=== PATIENT | male | born 1960 | race African-American/Black ===

== ENCOUNTER 2016-11-16 20:03 | Inpatient (IN) | payer OTHER ==
[2016-11-16 20:33] VITALS: BMI 22.1
--- NOTE | 2016-11-16 21:49 | HP ---
COWS - Scale Resting Pulse: 1= [place] 81-100 Sweatin= Chills/Flushing Restless Observation: 5= Unable to Sit Still Pupil Size: 0= Normal to Room Light Bone or Joint Aches: 4=Acute Joint/Muscle Pain Runny Nose/ Eye Tearin= None GI Upset > 30mins: 2= Nausea/Diarrhea Tremor Observation: 4= Gross Tremor/Twitching Yawning Observation: 0= None Anxiety or Irritability: 4=Extreme Anxiety Goose Flesh Skin: 0=Smooth Skin COWS Score: 21 CIWA Score - CIWA Score Nausea/Vomitin Muscle Tremors: 4-Moderate,w/Arms Extend Anxiety: 4-Mod. Anxious/Guarded Agitation: 4-Moderately Restless Paroxysmal Sweats: No Perspiration Orientation: 0-Oriented Tacttile Disturbances: 3-Moderate Itch/Numb/Burn Auditory Disturbances: 2-Mild Harshness/Frighten Visual Disturbances: 0-None Headache: 3-Moderate CIWA-Ar Total Score: 23 Admission ROS BHS - HPI Chief Complaint: WITHDRAWAL SX'S. SEKING DETOX TXMENT Allergies/Adverse Reactions: Allergies Allergy/AdvReac Type Severity Reaction Status Date / Time Fish Containing Products Allergy Severe Nausea Verified 11/16/16 20:34 haloperidol [From Haldol] Allergy Severe Hives Verified 11/16/16 20:34 haloperidol lactate Allergy Severe Hives Verified 11/16/16 20:34 [From Haldol] History of Present Illness: 55 Y.O MALE WITH ETOH, COCAINE DEPENDENCE WITH RECENT USE OF HEROIN ( THIS WEEK) . ADMITTED FOR DETOX TXMENT. DOES NOT WANT TO BE DETOX WITH METHADONE. CLIENT IS KNOW TO [facility]. REPORTS LONGEST CLEAN TIME WAS 3 YEARS. D/W CLIENT WITH ORDER CLONIDINE PRN FOR S/SX OF OPIATE WITHDDRAWAL. START LIBRIUM TAPER AND APPROX LOS IS 5 DAYS. CLIENT AGREES. Exam Limitations: No Limitations - Ebola screening Have you traveled outside of the country in the last 21 days: No (N) Have you had contact with anyone from an Ebola affected area: No Do you have a fever: No - Review of Systems Constitutional: Chills, Malaise, Night Sweats, Changes in sleep EENT: reports: Dental Problems (MISSING TEETH), Other (RINORRHEA) Respiratory: reports: Cough Cardiac: reports: No Symptoms Reported GI: reports: Diarrhea : reports: No Symptoms Reported Musculoskeletal: reports: Other (FEET PAIN DUE TO DM NEUROPATHY) Integumentary: reports: Other (SCABBING TO BACK) Neuro: reports: Headache (MIGRAINES) Endocrine: reports: Other (KNOWN DM) Hematology: reports: No Symptoms Reported Psychiatric: reports: Agitated, Depressed Other Systems: Reviewed and Negative Patient History - Patient Medical History Hx Anemia: No Hx Asthma: Yes (on MDI) Hx Chronic Obstructive Pulmonary Disease (COPD): No Hx Cancer: No Hx Cardiac Disorders: No Hx Congestive Heart Failure: No Hx Hypertension: No Hx Hypercholesterolemia: Yes (ON MEDS) Hx Pacemaker: No HX Cerebrovascular Accident: No Hx Seizures: No Hx Dementia: No Hx Diabetes: Yes (IDDM) Hx Gastrointestinal Disorders: No Hx Liver Disease: No Hx Genitourinary Disorders: No Hx Sexually Transmitted Disorders: No Hx Renal Disease (ESRD): No Hx Thyroid Disease: No Hx Human Immunodeficiency Virus (HIV): No Hx Hepatitis C: No Hx Depression: Yes (PROZAC, REMERON) Hx Suicide Attempt: Yes (1 YEAR AGO RAN OUT INTO TRAFFIC ALSO TRIED TO JUMP INTO TRAIN TRACK. ) Hx Bipolar Disorder: Yes Hx Schizophrenia: No Other Medical History: PRESENTLY DENIES SI/HI - Patient Surgical History Past Surgical History: No Hx Neurologic Surgery: No Hx Cataract Extraction: No Hx Cardiac Surgery: No Hx Lung Surgery: No Hx Breast Surgery: No Hx Breast Biopsy: No Hx Abdominal Surgery: No Hx Appendectomy: No Hx Cholecystectomy: No Hx Genitourinary Surgery: No Hx Section: No Hx Orthopedic Surgery: No Anesthesia Reaction: No - PPD History Previous Implant?: Yes Documented Results: Negative w/proof Implanted On Prior [facility] Admission?: Yes Date: 08/18/16 Results: 0 mm PPD to be Administered?: No - Smoking Cessation Smoking history: Current every day smoker Have you smoked in the past 12 months: Yes Aproximately how many cigarettes per day: 12 Cigars Per Day: 0 Hx Chewing Tobacco Use: No Initiated information on smoking cessation: No 'Breaking Loose' booklet given: 11/16/16 - Substance & Tx. History Hx Alcohol Use: Yes Hx Substance Use: Yes Substance Use Type: Cocaine (NEG ON UTOX), Heroin, Marijuana Hx Substance Use Treatment: Yes ([facility]) - Substances Abused Heroin Route: Inhalation Frequency: 3-6 times per week Amount used: 4 bags Age of first use: 35 (STARTED THIS WEEK AFTER YEARS OF NOT USING) Date of Last Use: 11/16/16 Alcohol Route: Oral Frequency: Daily Amount used: liquor- 4 pints, beer- 1 case Age of first use: 13 Date of Last Use: 11/14/16 Family Disease History - Family Disease History Family Disease History: Diabetes: Grandparent (alcohol use ), CA: Mother, Brother (alcohol), Sister (alcohol), Respiratory: Brother, Other: Grandparent, Father (alcohol), Brother, Sister Admission Physical Exam S - Vital Signs Vital Signs: Vital Signs - 24 hr 11/16/16 20:30 Temperature 97.2 F L Pulse Rate 86 Respiratory 18 Rate Blood Pressure 140/74 - Physical General Appearance: Yes: Appropriately Dressed, Mild Distress, Tremorous, Irritable, Anxious HEENTM: Yes: EOMI, Normocephalic, SWETHA, Pharynx Normal, Other (MISSING TEETH) Respiratory: Yes: Chest Non-Tender, Lungs Clear, Normal Breath Sounds, No Respiratory Distress, No Accessory Muscle Use, Other (COUGH) Neck: Yes: No masses,lesions,Nodules, Supple, Trachea in good position Breast: Yes: Breast Exam Deferred Cardiology: Yes: Regular Rhythm, Regular Rate, S1, S2 Abdominal: Yes: Normal Bowel Sounds, Non Tender, Soft Genitourinary: Yes: Within Normal Limits Musculoskeletal: Yes: full range of Motion, Gait Steady Extremities: Yes: Normal Range of Motion, Non-Tender, Tremors Neurological: Yes: Alert, Motor Strength 5/5 Integumentary: Yes: Normal Color, Dry (DRY FLAKY SKIN), Warm, Other (SCRATCH/ ABRASIONS TO UPPER BACK AND B/L KNEES HEALING) Lymphatic: Yes: Within Normal Limits - Diagnostic (1) Alcohol dependence with uncomplicated withdrawal Current Visit: Yes Status: Chronic (2) Nicotine dependence Current Visit: Yes Status: Chronic Qualifiers: Nicotine product type: cigarettes Substance use status: uncomplicated Qualified Code(s): F17.210 - Nicotine dependence, cigarettes, uncomplicated (3) Asthma Current Visit: Yes Status: Chronic Qualifiers: Asthma severity: mild intermittent Asthma complication type: uncomplicated Qualified Code(s): J45.20 - Mild intermittent asthma, uncomplicated (4) Cannabis dependence Current Visit: Yes Status: Chronic (5) DM (diabetes mellitus), type 2 Current Visit: Yes Status: Chronic Qualifiers: Diabetes mellitus complication status: with neurologic complications Diabetes mellitus complication detail: with polyneuropathy Qualified Code(s) : E11.42 - Type 2 diabetes mellitus with diabetic polyneuropathy; Z79.4 - intermediate teacher (current) use of insulin (6) Peripheral neuropathy Current Visit: Yes Status: Chronic Qualifiers: Peripheral neuropathy type: polyneuropathy associated with underlying disease Qualified Code(s): G63 - Polyneuropathy in diseases classified elsewhere Cleared for Admission BHS - Detox or Rehab S Level of Care: Medically Managed Detox Regimen/Protocol: Clonidine/Librium S Breath Alcohol Content Breath Alcohol Content: 0 Urine Drug Screen - Results Urine Drug Screen Results: THC-Marijuana, OPI-Opiates
[2016-11-16] MEDS ORDERED: MAG HYDROX/AL HYDROX/SIMETH 30 ML UNIT-DOSE CUP PO PRN (22:07)
[2016-11-16] MEDS ORDERED: ACETAMINOPHEN 325 MG TABLET (FP) PO PRN (22:07)
[2016-11-16] MEDS ORDERED: MENTHOL/PHENOL 1 EACH UD MM PRN (22:07)
[2016-11-16] MEDS ORDERED: guaiFENesin/D-METHORPHAN HB 10 ML UNIT-DOSE CUPS PO PRN (22:07)
[2016-11-16] MEDS ORDERED: MAGNESIUM HYDROX 2400MG/30ML ORAL SUSPENSION 30 ML CUP PO PRN (22:07)
[2016-11-16] MEDS ORDERED: chlordiazePOXIDE HCL 25 MG CAPSULE PO PRN (22:07)
[2016-11-16] MEDS ORDERED: P-EPHED 60MG/TRIPROLIDI 2.5MG TABLET PO PRN (22:07)
[2016-11-16] MEDS ORDERED: NICOTINE POLACRILEX 2 MG GUM BUC PRN (22:07)
[2016-11-16] MEDS ORDERED: IBUPROFEN 400 MG TABLET (FP) PO PRN (22:07)
[2016-11-16] MEDS ORDERED: LOPERAMIDE HCL 2 MG CAPSULE PO PRN (22:07)
[2016-11-16] MEDS ORDERED: MAGNESIUM CITRATE 300 ML BOTTLE PO PRN (22:07)
[2016-11-16] MEDS ORDERED: hydrOXYzine PAMOATE 50 MG CAPSULE (FP) PO PRN (22:07)
[2016-11-16] MEDS ORDERED: ALBUTEROL SO4 6.7 GM HFA INHALER IH PRN (22:10)
[2016-11-16] MEDS ORDERED: cloNIDine HCL 0.1 MG TABLET PO PRN (22:11)
[2016-11-16] MEDS ORDERED: PATIENT'S OWN MEDICATION (NON-FORMULARY) (Insulin Glargine,Hum.Rec.Anlog 50 UNITS) SQ SCH (22:15)
[2016-11-16] MEDS: chlordiazePOXIDE HCL 25 MG CAPSULE PO SCH (23:03)
[2016-11-16] MEDS: diphenhydrAMINE HCL 50 MG CAPSULE PO PRN (23:05)
[2016-11-16] MEDS: INSULIN DETEMIR 100 UNITS/ML MDV SQ SCH (23:25)
[2016-11-17 03:15] LABS: URINE APPEARANCE CLEAR; URINE BILIRUBIN NEGATIVE (NEGATIVE); URINE BLOOD NEGATIVE (NEGATIVE); URINE COLOR LTYELLOW; URINE GLUCOSE (UA) 3+ (NEGATIVE); URINE KETONE NEGATIVE (NEGATIVE); URINE LEUK ESTERASE NEGATIVE (NEGATIVE); URINE NITRITE NEGATIVE (NEGATIVE); URINE UROBILINOGEN NEGATIVE E.U./dl (0.2-1.0)
[2016-11-17 03:31] LABS: URINE PROTEIN 2+ (NEGATIVE)
[2016-11-17 03:43] LABS: URINE BACTERIA RARE /hpf (NONE SEEN); URINE HYALINE CAST 2 /lpf; URINE MUCUS RARE; URINE RBC 2 /hpf (0-3); URINE WBC 6 /hpf (3-5)
[2016-11-17] MEDS: chlordiazePOXIDE HCL 25 MG CAPSULE PO SCH ×4 (05:36→22:48)
[2016-11-17] MEDS: GABAPENTIN 400 MG CAPSULE (FP) PO SCH ×3 (05:36→22:48)
[2016-11-17] MEDS ORDERED: INSULIN (NOVOLOG) ASPART 100 UNITS/ML 10ML VIAL ONE ×2 (08:17→16:51)
[2016-11-17] MEDS: INSULIN SLIDING SCALE (NOVOLOG) 1 VIAL SQ SCH ×3 (08:29→16:53)
[2016-11-17] MEDS: metFORMIN HCL 500 MG TABLET (FP) PO SCH (08:29)
--- NOTE | 2016-11-17 09:53 | PN ---
S CIWA - CIWA Score Nausea/Vomitin Muscle Tremors: 3 Anxiety: 3 Agitation: 2 Paroxysmal Sweats: 1-Minimal Palms Moist Orientation: 0-Oriented Tacttile Disturbances: 1-Very Mild Itch/Numbness Auditory Disturbances: 1-Very Mild Visual Disturbances: 1-Very Mild Sensitivity Headache: 2-Mild CIWA-Ar Total Score: 17 BHS COWS - Scale Resting Pulse: 0= [place] 80 or Below Sweatin= Chills/Flushing Restless Observation: 3= Extraneous Movement Pupil Size: 1= Pupils >than Normal Bone or Joint Aches: 2= Severe Diffuse Aches Runny Nose/ Eye Tearin= Nasal Congestion GI Upset > 30mins: 2= Nausea/Diarrhea Tremor Observation of Outstretched Hands: 2= Slight Tremor Visible Yawning Observation: 1= 1-2x During Session Anxiety or Irritability: 2=Irritable/Anxious Goose Flesh Skin: 0=Smooth Skin COWS Score: 15 BHS Progress Note (SOAP) Subjective: ALERT,IRRITABLE,ANXIOUS,INTERRUPTED SLEEP,TREMOR,PAIN IN THE BODY AND BACK Objective: 11/17/16 09:50 Vital Signs Temperature 97.6 F 11/17/16 09:35 Pulse Rate 82 11/17/16 09:35 Respiratory Rate 18 11/17/16 09:35 Blood Pressure 118/62 11/17/16 09:35 O2 Sat by Pulse Oximetry (%) EKG NSR PROLONG QT NO CHEST PAIN,NO SOB,NO DIZZINESS Laboratory Last Values POC Glucometer 446 UNITS (()) 11/16/16 20:44 Urine Color Ltyellow 11/16/16 23:02 Urine Appearance Clear 11/16/16 23:02 Urine pH 6.0 (5.0-8.0) 11/16/16 23:02 Ur Specific [place] 1.028 (1.001-1.035) 11/16/16 23:02 Urine Protein 2+ (NEGATIVE) H 11/16/16 23:02 Urine Glucose (UA) 3+ (NEGATIVE) H 11/16/16 23:02 Urine Ketones Negative (NEGATIVE) 11/16/16 23:02 Urine Blood Negative (NEGATIVE) 11/16/16 23:02 Urine Nitrite Negative (NEGATIVE) 11/16/16 23:02 Urine Bilirubin Negative (NEGATIVE) 11/16/16 23:02 Urine Urobilinogen Negative E.U./dl (0.2-1.0) 11/16/16 23:02 Ur Leukocyte Esterase Negative (NEGATIVE) 11/16/16 23:02 Urine RBC 2 /hpf (0-3) 11/16/16 23:02 Urine WBC 6 /hpf (3-5) 11/16/16 23:02 Ur Epithelial Cells Rare /hpf (FEW) 11/16/16 23:02 Urine Bacteria Rare /hpf (NONE SEEN) 11/16/16 23:02 Hyaline Casts 2 /lpf 11/16/16 23:02 Urine Mucus Rare 11/16/16 23:02 LABS PENDING Assessment: 11/17/16 09:52 WITHDRAWAL SYMPTOM Plan: CONTINUE DETOX,BGM MONITORING WITH INSULIN COVERAGE
[2016-11-17] MEDS: PRENATAL VITAMINS W/ FOLIC ACID TABLET (FP) PO SCH (10:23)
[2016-11-17] MEDS: ASPIRIN 81 MG CHEWABLE TABLETS PO SCH (10:24)
[2016-11-17] MEDS: INSULIN DETEMIR 100 UNITS/ML MDV SQ SCH ×2 (10:24→23:01)
[2016-11-17] MEDS: NICOTINE 21 MG/24 HOURS TOPICAL PATCH TD SCH (10:27)
[2016-11-17 11:10] LABS: MCH 27.6 pg (25.7-33.7); MCHC 32.6 g/dl (32.0-35.9); MEAN CELL VOLUME 84.6 fl (80-96); MEAN PLT VOLUME 10.5 fl (7.5-11.1); PLATELET COUNT 127 K/MM3 (134-434); RDW 14.1 % (11.9-15.9); WHITE BLOOD COUNT 4.5 K/mm3 (4.0-10.0)
--- NOTE | 2016-11-17 11:10 | CONSULT ---
[facility] Psychiatric Consult - Data Date of interview: 11/17/16 Admission source: [facility] Identifying data: Readmission to [facility] for this 55 y/o AA male seeking detox treatment on for alcohol,cocaine (self-report but utox is negative ) and marijuana dependence.Patient is single without children,domiciled, unemployed and supported on SSI benefits. Substance Abuse History: - Smoking Cessation. Smoking history: Current every day smoker. Have you smoked in the past 12 months: Yes. Aproximately how many cigarettes per day: 12. Cigars Per Day: 0. Hx Chewing Tobacco Use: No. Initiated information on smoking cessation: No. 'Breaking Loose' booklet given : 11/16/16. - Substance & Tx. History. Hx Alcohol Use: Yes. Hx Substance Use : Yes. Substance Use Type: Cocaine (NEG ON UTOX), Heroin, Marijuana. Hx Substance Use Treatment: Yes ([facility] - Substances Abused. Heroin. Route: Inhalation. Frequency: 3-6 times per week. Amount used: 4 bags. Age of first use: 35 (STARTED THIS WEEK AFTER YEARS OF NOT USING). Date of Last Use: . Alcohol. Route: Oral. Frequency: Daily. Amount used: liquor- 4 pints , beer- 1 case. Age of first use: 13. Date of Last Use: 11/14/16. Confirmed by the patient in this session. Medical History: Insulin-dependent diabetes mellitus,bronchial asthma, hypercholesterolemia and peripheral neuropathy. Psychiatric History: History of multiple psychiatric hospitalizations since 1984.Patient is known to [facility] (committed for suicidal ideation/intent to jump off a bridge),[facility] and [facility].Diagnosed with Bipolar Disorder.Past exposure to various psychotropic drugs which includes lithium,haloperidol,mellaril,valproate, quetiapine and cogentin.Mr Bond denies affiliation with [employer] care providers.No supervision by psychiatrists.Patient informs that he gets scripts from emergency room doctors.Medications : prozac 20 mg/day + remeron 30 mg/hs.Mr Bond admits to chronic non-adherence to outpatric psychiatric care. Physical/Sexual Abuse/Trauma History: Patient denies. Additional Comment: Urine Drug Screen Results: THC-Marijuana, OPI-Opiates.Noted. Mental Status Exam - Mental Status Exam Alert and Oriented to: Time, Place, Person Cognitive Function: Grossly Intact Patient Appearance: Unkempt, Disheveled Mood: Withdrawn Affect: Mood Congruent Patient Behavior: Sedated (mildly), Fatigued, Cooperative Speech Pattern: Clear Voice Loudness: Normal Thought Process: Goal Oriented Thought Disorder: Not Present Hallucinations: Denies Suicidal Ideation: Denies Homicidal Ideation: Denies Insight/Judgement: Poor Sleep: Poorly, Difficulty falling asleep Appetite: Good Muscle strength/Tone: Normal Gait/Station: Normal Psychiatric Findings - Problem List ([place] 1, 2,3) (1) Alcohol dependence with uncomplicated withdrawal Current Visit: Yes Status: Acute (2) Cannabis dependence Current Visit: Yes Status: Acute (3) Nicotine dependence Current Visit: Yes Status: Acute Qualifiers: Nicotine product type: cigarettes Substance use status: uncomplicated Qualified Code(s): F17.210 - Nicotine dependence, cigarettes, uncomplicated (4) Substance induced mood disorder Current Visit: Yes Status: Acute (5) Bipolar disorder Current Visit: Yes Status: Chronic Comment: Self-report. (6) Asthma Current Visit: Yes Status: Chronic Qualifiers: Asthma severity: mild intermittent Asthma complication type: uncomplicated Qualified Code(s): J45.20 - Mild intermittent asthma, uncomplicated (7) DM (diabetes mellitus), type 2 Current Visit: Yes Status: Chronic Qualifiers: Diabetes mellitus complication status: with neurologic complications Diabetes mellitus complication detail: with polyneuropathy (8) Peripheral neuropathy Current Visit: Yes Status: Chronic Qualifiers: Peripheral neuropathy type: polyneuropathy associated with underlying disease Qualified Code(s): G63 - Polyneuropathy in diseases classified elsewhere (9) Hyperlipidemia Current Visit: Yes Status: Chronic Qualifiers: Hyperlipidemia type: Pure hypercholesterolemia - Initial Treatment Plan Initial Treatment Plan: Psychoeducation.Detoxification.Medications : prozac 20 mg po daily + emeron 15 mg po hs.Side effects/benefits discussed with patient.He agrees with this plan.Observation.
[2016-11-17 11:15] LABS: ALBUMIN 3.2 g/dl (3.4-5.0); ANION GAP 8 (8-16); CALCIUM 9.3 mg/dL (8.5-10.1); CO2 29 mmol/L (21-32)
[2016-11-17 11:20] LABS: ALK PHOS 147 U/L (45-117); BILIRUBIN,TOTAL 0.4 mg/dL (0.2-1.0); SGOT/AST 57 U/L (15-37); SGPT/ALT 82 U/L (12-78); TOT PROT 5.9 g/dl (6.4-8.2)
[2016-11-17 11:36] LABS: GLUCOSE,RANDOM 377 mg/dL (74-106)
--- NOTE | 2016-11-17 13:36 | EKG ---
Test Reason : Blood Pressure : / mmHG Vent. Rate : 081 BPM Atrial Rate : 081 BPM P-R Int : 136 ms QRS Dur : 110 ms QT Int : 428 ms P-R-T Axes : 065 087 065 degrees QTc Int : 497 ms NORMAL SINUS RHYTHM INCOMPLETE RIGHT BUNDLE BRANCH BLOCK PROLONGED QT ABNORMAL ECG NO PREVIOUS ECGS AVAILABLE Confirmed by MICHEAL WILLS MD ([id number]) on 11/17/2016 1:35:46 PM Referred By: Confirmed By:MICHEAL WILLS MD
[2016-11-17] MEDS: MIRTAZAPINE 15 MG TABLET (FP) PO SCH (22:48)
[2016-11-17] MEDS: ATORVASTATIN CA 40 MG TABLET (FP) PO SCH (22:48)
[2016-11-17] MEDS: THIAMINE HCL 100 MG TABLET (FP) PO SCH (22:49)
[2016-11-17] MEDS: diphenhydrAMINE HCL 50 MG CAPSULE PO PRN (23:02)
[2016-11-18] MEDS: GABAPENTIN 400 MG CAPSULE (FP) PO SCH ×3 (06:35→22:53)
[2016-11-18] MEDS: chlordiazePOXIDE HCL 25 MG CAPSULE PO SCH ×3 (06:37→21:29)
[2016-11-18] MEDS: metFORMIN HCL 500 MG TABLET (FP) PO SCH (06:38)
[2016-11-18] MEDS ORDERED: INSULIN (NOVOLOG) ASPART 100 UNITS/ML 10ML VIAL ONE ×2 (07:51→11:23)
[2016-11-18] MEDS: INSULIN SLIDING SCALE (NOVOLOG) 1 VIAL SQ SCH ×3 (07:54→16:59)
[2016-11-18] MEDS: ASPIRIN 81 MG CHEWABLE TABLETS PO SCH (10:20)
[2016-11-18] MEDS: PRENATAL VITAMINS W/ FOLIC ACID TABLET (FP) PO SCH (10:20)
[2016-11-18] MEDS: FLUoxetine HCL 20 MG CAPSULE (FP) PO SCH (10:20)
[2016-11-18] MEDS: INSULIN DETEMIR 100 UNITS/ML MDV SQ SCH ×2 (10:20→22:53)
[2016-11-18] MEDS: NICOTINE 21 MG/24 HOURS TOPICAL PATCH TD SCH (10:23)
--- NOTE | 2016-11-18 11:07 | PN ---
[facility] CIWA - CIWA Score Nausea/Vomitin-Mild Nausea/No Vomiting Muscle Tremors: 4-Moderate,w/Arms Extend Anxiety: 3 Agitation: 4-Moderately Restless Paroxysmal Sweats: 3 Orientation: 0-Oriented Tacttile Disturbances: 2-Mild Itch/Numbness/Burn Auditory Disturbances: 0-None Visual Disturbances: 0-None Headache: 0-None Present CIWA-Ar Total Score: 17 BHS Progress Note (SOAP) Subjective: sweating,interrupted sleep,restless,tremors,anxiety Objective: 11/18/16 11:06 Vital Signs - 8 hr 11/18/16 11/18/16 11/18/16 03:30 06:00 10:00 Temperature 97.7 F 98.6 F Pulse Rate 76 94 H Respiratory 16 18 18 Rate Blood Pressure 106/82 132/72 Laboratory Last Values WBC 4.5 K/mm3 (4.0-10.0) D 11/17/16 07:50 RBC 4.75 M/mm3 (4.00-5.60) 11/17/16 07:50 Hgb 13.1 GM/dL (11.7-16.9) 11/17/16 07:50 Hct 40.2 % (35.4-49) 11/17/16 07:50 MCV 84.6 fl (80-96) 11/17/16 07:50 MCHC 32.6 g/dl (32.0-35.9) 11/17/16 07:50 RDW 14.1 % (11.9-15.9) D 11/17/16 07:50 Plt Count 127 K/MM3 (134-434) L D 11/17/16 07:50 MPV 10.5 fl (7.5-11.1) 11/17/16 07:50 Sodium 136 mmol/L (136-145) 11/17/16 07:50 Potassium 4.2 mmol/L (3.5-5.1) 11/17/16 07:50 Chloride 99 mmol/L (98-107) 11/17/16 07:50 Carbon Dioxide 29 mmol/L (21-32) 11/17/16 07:50 Anion Gap 8 (8-16) 11/17/16 07:50 BUN 21 mg/dL (7-18) H 11/17/16 07:50 Creatinine 1.0 mg/dL (0.7-1.3) D 11/17/16 07:50 Creat Clearance w eGFR > 60 (>60) 11/17/16 07:50 POC Glucometer 338 UNITS (()) 11/18/16 06:35 Random Glucose 377 mg/dL (74-106) H* D 11/17/16 07:50 Calcium 9.3 mg/dL (8.5-10.1) 11/17/16 07:50 Total Bilirubin 0.4 mg/dL (0.2-1.0) D 11/17/16 07:50 AST 57 U/L (15-37) H D 11/17/16 07:50 ALT 82 U/L (12-78) H D 11/17/16 07:50 Alkaline Phosphatase 147 U/L (45-117) H D 11/17/16 07:50 Total Protein 5.9 g/dl (6.4-8.2) L 11/17/16 07:50 Albumin 3.2 g/dl (3.4-5.0) L 11/17/16 07:50 Urine Color Ltyellow 11/16/16 23:02 Urine Appearance Clear 11/16/16 23:02 Urine pH 6.0 (5.0-8.0) 11/16/16 23:02 Ur Specific [place] 1.028 (1.001-1.035) 11/16/16 23:02 Urine Protein 2+ (NEGATIVE) H 11/16/16 23:02 Urine Glucose (UA) 3+ (NEGATIVE) H 11/16/16 23:02 Urine Ketones Negative (NEGATIVE) 11/16/16 23:02 Urine Blood Negative (NEGATIVE) 11/16/16 23:02 Urine Nitrite Negative (NEGATIVE) 11/16/16 23:02 Urine Bilirubin Negative (NEGATIVE) 11/16/16 23:02 Urine Urobilinogen Negative E.U./dl (0.2-1.0) 11/16/16 23:02 Ur Leukocyte Esterase Negative (NEGATIVE) 11/16/16 23:02 Urine RBC 2 /hpf (0-3) 11/16/16 23:02 Urine WBC 6 /hpf (3-5) 11/16/16 23:02 Ur Epithelial Cells Rare /hpf (FEW) 11/16/16 23:02 Urine Bacteria Rare /hpf (NONE SEEN) 11/16/16 23:02 Hyaline Casts 2 /lpf 11/16/16 23:02 Urine Mucus Rare 11/16/16 23:02 RPR Titer Nonreactive (NONREACTIVE) 11/17/16 07:50 labs noted Assessment: 11/18/16 11:06 withdrawal sx. Plan: Continue detox
[2016-11-18] MEDS: chlordiazePOXIDE 5 MG CAPSULE PO SCH (22:53)
[2016-11-18] MEDS: ATORVASTATIN CA 40 MG TABLET (FP) PO SCH (22:53)
[2016-11-18] MEDS: MIRTAZAPINE 15 MG TABLET (FP) PO SCH (22:53)
[2016-11-18] MEDS: THIAMINE HCL 100 MG TABLET (FP) PO SCH (22:54)
[2016-11-19] MEDS: GABAPENTIN 400 MG CAPSULE (FP) PO SCH ×3 (05:35→22:50)
[2016-11-19] MEDS: chlordiazePOXIDE 5 MG CAPSULE PO SCH ×3 (05:40→17:39)
[2016-11-19] MEDS ORDERED: INSULIN (NOVOLOG) ASPART 100 UNITS/ML 10ML VIAL ONE ×2 (07:32→16:53)
[2016-11-19] MEDS: metFORMIN HCL 500 MG TABLET (FP) PO SCH (07:52)
[2016-11-19] MEDS: INSULIN SLIDING SCALE (NOVOLOG) 1 VIAL SQ SCH ×3 (07:53→16:50)
[2016-11-19] MEDS ORDERED: INSULIN DETEMIR 100 UNITS/ML MDV SQ ONE (10:48)
[2016-11-19] MEDS: ASPIRIN 81 MG CHEWABLE TABLETS PO SCH (10:58)
[2016-11-19] MEDS: INSULIN DETEMIR 100 UNITS/ML MDV SQ SCH ×2 (10:59→22:51)
[2016-11-19] MEDS: PRENATAL VITAMINS W/ FOLIC ACID TABLET (FP) PO SCH (10:59)
[2016-11-19] MEDS: NICOTINE 21 MG/24 HOURS TOPICAL PATCH TD SCH (10:59)
[2016-11-19] MEDS: FLUoxetine HCL 20 MG CAPSULE (FP) PO SCH (10:59)
--- NOTE | 2016-11-19 11:42 | PN ---
BHS Progress Note (SOAP) Subjective: interrupted sleep, sweats , weak Objective: 11/19/16 11:40 Vital Signs Temperature 98.7 F 11/19/16 10:00 Pulse Rate 89 11/19/16 10:00 Respiratory Rate 18 11/19/16 10:00 Blood Pressure 121/71 11/19/16 10:00 O2 Sat by Pulse Oximetry (%) Laboratory Tests 11/16/16 11/16/16 11/17/16 20:44 23:02 07:50 WBC 4.5 D RBC 4.75 Hgb 13.1 Hct 40.2 MCV 84.6 MCHC 32.6 RDW 14.1 D Plt Count 127 L D MPV 10.5 Sodium Potassium Chloride Carbon Dioxide Anion Gap BUN Creatinine Creat Clearance w eGFR POC Glucometer 446 Random Glucose Calcium Total Bilirubin AST ALT Alkaline Phosphatase Total Protein Albumin Urine Color Ltyellow Urine Appearance Clear Urine pH 6.0 Ur Specific [place] 1.028 Urine Protein 2+ H Urine Glucose (UA) 3+ H Urine Ketones Negative Urine Blood Negative Urine Nitrite Negative Urine Bilirubin Negative Urine Urobilinogen Negative Ur Leukocyte Esterase Negative Urine RBC 2 Urine WBC 6 Ur Epithelial Cells Rare Urine Bacteria Rare Hyaline Casts 2 Urine Mucus Rare RPR Titer 11/17/16 11/17/16 11/17/16 07:50 07:50 11:25 WBC RBC Hgb Hct MCV MCHC RDW Plt Count MPV Sodium 136 Potassium 4.2 Chloride 99 Carbon Dioxide 29 Anion Gap 8 BUN 21 H Creatinine 1.0 D Creat Clearance w eGFR > 60 POC Glucometer 181 Random Glucose 377 H* D Calcium 9.3 Total Bilirubin 0.4 D AST 57 H D ALT 82 H D Alkaline Phosphatase 147 H D Total Protein 5.9 L Albumin 3.2 L Urine Color Urine Appearance Urine pH Ur Specific [place] Urine Protein Urine Glucose (UA) Urine Ketones Urine Blood Urine Nitrite Urine Bilirubin Urine Urobilinogen Ur Leukocyte Esterase Urine RBC Urine WBC Ur Epithelial Cells Urine Bacteria Hyaline Casts Urine Mucus RPR Titer Nonreactive 11/17/16 11/18/16 11/18/16 16:31 06:35 11:19 WBC RBC Hgb Hct MCV MCHC RDW Plt Count MPV Sodium Potassium Chloride Carbon Dioxide Anion Gap BUN Creatinine Creat Clearance w eGFR POC Glucometer 206 338 298 Random Glucose Calcium Total Bilirubin AST ALT Alkaline Phosphatase Total Protein Albumin Urine Color Urine Appearance Urine pH Ur Specific [place] Urine Protein Urine Glucose (UA) Urine Ketones Urine Blood Urine Nitrite Urine Bilirubin Urine Urobilinogen Ur Leukocyte Esterase Urine RBC Urine WBC Ur Epithelial Cells Urine Bacteria Hyaline Casts Urine Mucus RPR Titer 11/18/16 11/19/16 16:38 07:05 WBC RBC Hgb Hct MCV MCHC RDW Plt Count MPV Sodium Potassium Chloride Carbon Dioxide Anion Gap BUN Creatinine Creat Clearance w eGFR POC Glucometer 373 355 Random Glucose Calcium Total Bilirubin AST ALT Alkaline Phosphatase Total Protein Albumin Urine Color Urine Appearance Urine pH Ur Specific [place] Urine Protein Urine Glucose (UA) Urine Ketones Urine Blood Urine Nitrite Urine Bilirubin Urine Urobilinogen Ur Leukocyte Esterase Urine RBC Urine WBC Ur Epithelial Cells Urine Bacteria Hyaline Casts Urine Mucus RPR Titer pt aox3 but lying in bed , prostrated 11/19/16 16:00 11/19/16 16:00 Laboratory Last Values WBC 4.6 K/mm3 (4.0-10.0) 11/19/16 10:50 RBC 4.47 M/mm3 (4.00-5.60) 11/19/16 10:50 Hgb 12.4 GM/dL (11.7-16.9) 11/19/16 10:50 Hct 38.4 % (35.4-49) 11/19/16 10:50 MCV 85.9 fl (80-96) 11/19/16 10:50 MCHC 32.4 g/dl (32.0-35.9) 11/19/16 10:50 RDW 14.2 % (11.9-15.9) 11/19/16 10:50 Plt Count 125 K/MM3 (134-434) L 11/19/16 10:50 MPV 11.1 fl (7.5-11.1) 11/19/16 10:50 Neutrophils % 65.2 % (42.8-82.8) 11/19/16 10:50 Lymphocytes % 27.2 % (8-40) 11/19/16 10:50 Monocytes % 6.5 % (3.8-10.2) 11/19/16 10:50 Eosinophils % 0.8 % (0-4.5) 11/19/16 10:50 Basophils % 0.3 % (0-2.0) 11/19/16 10:50 Sodium 134 mmol/L (136-145) L 11/19/16 10:50 Potassium 4.5 mmol/L (3.5-5.1) 11/19/16 10:50 Chloride 96 mmol/L (98-107) L 11/19/16 10:50 Carbon Dioxide 28 mmol/L (21-32) 11/19/16 10:50 Anion Gap 10 (8-16) 11/19/16 10:50 BUN 19 mg/dL (7-18) H 11/19/16 10:50 Creatinine 1.1 mg/dL (0.7-1.3) 11/19/16 10:50 Creat Clearance w eGFR > 60 (>60) 11/17/16 07:50 POC Glucometer 472 UNITS (()) 11/19/16 10:11 Random Glucose 558 mg/dL (74-106) H* D 11/19/16 10:50 Calcium 8.9 mg/dL (8.5-10.1) 11/19/16 10:50 Total Bilirubin 0.4 mg/dL (0.2-1.0) D 11/17/16 07:50 AST 57 U/L (15-37) H D 11/17/16 07:50 ALT 82 U/L (12-78) H D 11/17/16 07:50 Alkaline Phosphatase 147 U/L (45-117) H D 11/17/16 07:50 Total Protein 5.9 g/dl (6.4-8.2) L 11/17/16 07:50 Albumin 3.2 g/dl (3.4-5.0) L 11/17/16 07:50 Urine Color Ltyellow 11/16/16 23:02 Urine Appearance Clear 11/16/16 23:02 Urine pH 6.0 (5.0-8.0) 11/16/16 23:02 Ur Specific [place] 1.028 (1.001-1.035) 11/16/16 23:02 Urine Protein 2+ (NEGATIVE) H 11/16/16 23:02 Urine Glucose (UA) 3+ (NEGATIVE) H 11/16/16 23:02 Urine Ketones Negative (NEGATIVE) 11/16/16 23:02 Urine Blood Negative (NEGATIVE) 11/16/16 23:02 Urine Nitrite Negative (NEGATIVE) 11/16/16 23:02 Urine Bilirubin Negative (NEGATIVE) 11/16/16 23:02 Urine Urobilinogen Negative E.U./dl (0.2-1.0) 11/16/16 23:02 Ur Leukocyte Esterase Negative (NEGATIVE) 11/16/16 23:02 Urine RBC 2 /hpf (0-3) 11/16/16 23:02 Urine WBC 6 /hpf (3-5) 11/16/16 23:02 Ur Epithelial Cells Rare /hpf (FEW) 11/16/16 23:02 Urine Bacteria Rare /hpf (NONE SEEN) 11/16/16 23:02 Hyaline Casts 2 /lpf 11/16/16 23:02 Urine Mucus Rare 11/16/16 23:02 Acetone, Qual Negative (NEGATIVE) 11/19/16 10:50 RPR Titer Nonreactive (NONREACTIVE) 11/17/16 07:50 pt lying in bed aox3 , then ambulated to day room Assessment: 11/19/16 11:40 withdrawl sx; s iddm uncontrolled 11/19/16 16:01 Plan: cont. detox increase fluids sliding scale insulin
[2016-11-19 12:14] LABS: BASOPHIL 0.3 % (0-2.0); EOSINOPHIL 0.8 % (0-4.5); MCH 27.8 pg (25.7-33.7); MCHC 32.4 g/dl (32.0-35.9); MEAN CELL VOLUME 85.9 fl (80-96); MEAN PLT VOLUME 11.1 fl (7.5-11.1); NEUTROPHILS 65.2 % (42.8-82.8); PLATELET COUNT 125 K/MM3 (134-434); RDW 14.2 % (11.9-15.9); WHITE BLOOD COUNT 4.6 K/mm3 (4.0-10.0)
[2016-11-19 12:34] LABS: ACETONE SERUM NEGATIVE (NEGATIVE); ANION GAP 10 (8-16); CALCIUM 8.9 mg/dL (8.5-10.1); CO2 28 mmol/L (21-32); CREATININE 1.1 mg/dL (0.7-1.3)
[2016-11-19 12:37] LABS: GLUCOSE,RANDOM 558 mg/dL (74-106)
--- NOTE | 2016-11-19 17:32 | PN ---
BHS Progress Note Note: NURSE CALL FOR BGM 464 MG/DL SLIDING SCALE OF 12 UNITS SC GIVEN SCHEDULED
[2016-11-19] MEDS: ATORVASTATIN CA 40 MG TABLET (FP) PO SCH (22:50)
[2016-11-19] MEDS: MIRTAZAPINE 15 MG TABLET (FP) PO SCH (22:51)
[2016-11-19] MEDS: THIAMINE HCL 100 MG TABLET (FP) PO SCH (22:51)
[2016-11-19] MEDS: chlordiazePOXIDE HCL 10 MG CAPSULE PO SCH (23:23)
[2016-11-20] MEDS: chlordiazePOXIDE HCL 10 MG CAPSULE PO SCH (05:40)
[2016-11-20] MEDS ORDERED: INSULIN (NOVOLOG) ASPART 100 UNITS/ML 10ML VIAL ONE (07:26)
[2016-11-20] MEDS: metFORMIN HCL 500 MG TABLET (FP) PO SCH (07:30)
[2016-11-20] MEDS: INSULIN SLIDING SCALE (NOVOLOG) 1 VIAL SQ SCH (07:30)
[2016-11-20] MEDS: GABAPENTIN 400 MG CAPSULE (FP) PO SCH (07:30)
--- NOTE | 2016-11-20 09:20 | DS ---
[facility] Detox Discharge Summary Admission Date: 11/16/16 Discharge Date: 11/20/16 - History Present History: Alcohol Dependence, Cannabis Dependence, Cocaine Dependence - Physical Exam Results Vital Signs: Vital Signs Temperature 96.8 F L 11/20/16 06:25 Pulse Rate 79 11/20/16 06:25 Respiratory Rate 18 11/20/16 06:25 Blood Pressure 112/71 11/20/16 06:25 O2 Sat by Pulse Oximetry (%) - Treatment Hospital Course: Detox Protocol Followed, Detoxed Safely, Responded well, Discharged Condition Good, Rehab Referral Accepted - Medication Discharge Medications: Ambulatory Orders Insulin Regular, Human [Humulin R -] 0 units SQ AC 06/11/14 Hydroxyzine Pamoate [Vistaril -] 50 mg PO HS 11/23/15 Aspirin [ASA -] 81 mg PO DAILY #30 tab.chew 01/11/16 Mirtazapine [Remeron -] 30 mg PO HS #30 tablet 01/11/16 Albuterol Sulfate Inhaler - [Ventolin HFA Inhaler -] 2 puff IH Q4H PRN #1 inhaler 09/11/16 Atorvastatin Ca [Lipitor] 40 mg PO HS #30 tablet 09/11/16 Gabapentin [Neurontin -] 1,200 mg PO TID #90 capsule 09/11/16 Insulin Glargine,Hum.rec.anlog [Lantus Solostar PEN -] 50 units SQ BID #1 ins Metformin HCl [Glucophage -] 1,000 mg PO DAILY@0700 #30 tablet 09/11/16 Fluoxetine HCl [Prozac] 30 mg PO DAILY #30 capsule 09/12/16 Mirtazapine [Remeron -] 30 mg PO HS #30 tablet 09/12/16 Fluoxetine HCl [Prozac] 20 mg PO DAILY #30 capsule 11/17/16 Mirtazapine [Remeron -] 30 mg PO HS #30 tablet 11/17/16 - Diagnosis (1) Alcohol dependence with uncomplicated withdrawal Current Visit: Yes Status: Chronic (2) Cannabis dependence Current Visit: Yes Status: Chronic (3) Nicotine dependence Current Visit: Yes Status: Chronic Qualifiers: Nicotine product type: cigarettes Substance use status: uncomplicated Qualified Code(s): F17.210 - Nicotine dependence, cigarettes, uncomplicated (4) Substance induced mood disorder Current Visit: Yes Status: Acute (5) Asthma Current Visit: Yes Status: Chronic Qualifiers: Asthma severity: mild intermittent Asthma complication type: uncomplicated Qualified Code(s): J45.20 - Mild intermittent asthma, uncomplicated (6) Bipolar disorder Current Visit: Yes Status: Chronic (7) DM (diabetes mellitus), type 2 Current Visit: Yes Status: Chronic Qualifiers: Diabetes mellitus complication status: with neurologic complications Diabetes mellitus complication detail: with polyneuropathy (8) Hyperlipidemia Current Visit: Yes Status: Chronic Qualifiers: Hyperlipidemia type: Pure hypercholesterolemia (9) Peripheral neuropathy Current Visit: Yes Status: Chronic Qualifiers: Peripheral neuropathy type: polyneuropathy associated with underlying disease Qualified Code(s): G63 - Polyneuropathy in diseases classified elsewhere (10) Alcohol dependence Current Visit: No Status: Acute (11) Bipolar disorder, current episode mixed Current Visit: No Status: Acute (12) Hyperglycemia Current Visit: No Status: Acute (13) Bipolar I disorder, most recent episode mixed Current Visit: No Status: Chronic (14) Cocaine dependence Current Visit: No Status: Chronic Qualifiers: Substance use status: uncomplicated Qualified Code(s): F14.20 - Cocaine dependence, uncomplicated - AMA Did Patient Leave Against Medical Advice: No
[2016-11-20] MEDS: PRENATAL VITAMINS W/ FOLIC ACID TABLET (FP) PO SCH (09:58)
[2016-11-20] MEDS: ASPIRIN 81 MG CHEWABLE TABLETS PO SCH (09:58)
[2016-11-20 09:59] VITALS: BP 108/65; PULSE 85; TEMP 95.9
== END 2016-11-20 10:11 | disposition home or self-care (01) | DRG 775 ==
LOC: YASAS 20:03 → Y6N 20:45
PROVIDERS: ADMIT Internal Medicine; ATTEND Internal Medicine
PROC: HZ2ZZZZ Detoxification Services for Substance Abuse Treatment (ICD-10-PCS; principal; 2016-11-20)
DX: F10.230 Alcohol dependence with withdrawal, uncomplicated (principal); F12.20 Cannabis dependence, uncomplicated; F17.210 Nicotine dependence, cigarettes, uncomplicated; F19.24 Other psychoactive substance dependence with psychoactive substance-induced mood disorder; F31.9 Bipolar disorder, unspecified; J45.20 Mild intermittent asthma, uncomplicated; E11.42 Type 2 diabetes mellitus with diabetic polyneuropathy; Z79.4 Long term (current) use of insulin; Z79.84 Long term (current) use of oral hypoglycemic drugs; E78.00 Pure hypercholesterolemia, unspecified
CPT/HCPCS: 36415; 80048; 80053; 81003; 81015; 82009; 85025; 85027; 86593; 93005; 93010

== ENCOUNTER 2016-12-17 09:29 | Inpatient (IN) | payer OTHER ==
[2016-12-17 12:48] VITALS: BMI 23.6
--- NOTE | 2016-12-17 13:32 | HP ---
CIWA Score - CIWA Score Nausea/Vomitin (DIARRHEA) Muscle Tremors: 4-Moderate,w/Arms Extend Anxiety: 4-Mod. Anxious/Guarded Agitation: 4-Moderately Restless Paroxysmal Sweats: 1-Minimal Palms Moist Orientation: 0-Oriented Tacttile Disturbances: 3-Moderate Itch/Numb/Burn Auditory Disturbances: 0-None Visual Disturbances: 0-None Headache: 1-Very Mild CIWA-Ar Total Score: 22 Admission ROS BHS - HPI Chief Complaint: DETOX TX FOR ALCOHOL DEPENDENCE Allergies/Adverse Reactions: Allergies Allergy/AdvReac Type Severity Reaction Status Date / Time Fish Containing Products Allergy Severe Nausea Verified 12/17/16 11:52 haloperidol [From Haldol] Allergy Severe Hives Verified 12/17/16 11:52 haloperidol lactate Allergy Severe Hives Verified 12/17/16 11:52 [From Haldol] History of Present Illness: 56 Y/O AA/MALE WITH A HX OF ALCOHOL DEPENDENCE SEEKING DETOX [place] Exam Limitations: No Limitations - Ebola screening Have you traveled outside of the country in the last 21 days: No Have you had contact with anyone from an Ebola affected area: No Have you been sick,other than usual withdrawal symptoms: No Do you have a fever: No - Review of Systems Constitutional: Chills, Night Sweats, Changes in sleep, Unintentional Wgt. Loss EENT: reports: Blurred Vision, Dental Problems (MISSING TEETH) Respiratory: reports: Shortness of Breath (HX ASTHMA), Wheezing Cardiac: reports: Lightheadedness GI: reports: Diarrhea, Nausea, Vomiting, Indigestion : reports: Frequency Musculoskeletal: reports: Joint Pain, Muscle Pain Integumentary: reports: Bruising (ON BACK), Dryness Neuro: reports: Headache, Numbness, Tingling, Tremors, Unsteady Gait, Dizziness Endocrine: reports: Increased Hunger, Increased Thirst, Increased Urine Hematology: reports: No Symptoms Reported Psychiatric: reports: Orientated x3, Anxious, Depressed Other Systems: Reviewed and Negative Patient History - Patient Medical History Hx Anemia: No Hx Asthma: Yes (MDI) Hx Chronic Obstructive Pulmonary Disease (COPD): No Hx Cancer: No Hx Cardiac Disorders: No Hx Congestive Heart Failure: No Hx Hypertension: No Hx Hypercholesterolemia: Yes (ON MEDS) Hx Pacemaker: No HX Cerebrovascular Accident: No Hx Seizures: No Hx Dementia: No Hx Diabetes: Yes (BGM high--UNCONTROLLED DM) Hx Gastrointestinal Disorders: No Hx Liver Disease: No Hx Genitourinary Disorders: No Hx Sexually Transmitted Disorders: No Hx Renal Disease (ESRD): No Hx Thyroid Disease: No Hx Human Immunodeficiency Virus (HIV): No (NEGATIVE HX) Hx Hepatitis C: No Hx Depression: Yes (ON MED) Hx Suicide Attempt: No (DENIES) Hx Bipolar Disorder: Yes Hx Schizophrenia: No - Patient Surgical History Past Surgical History: No Hx Neurologic Surgery: No Hx Cataract Extraction: No Hx Cardiac Surgery: No Hx Lung Surgery: No Hx Breast Surgery: No Hx Breast Biopsy: No Hx Abdominal Surgery: No Hx Appendectomy: No Hx Cholecystectomy: No Hx Genitourinary Surgery: No Hx Orthopedic Surgery: No Anesthesia Reaction: No - PPD History Previous Implant?: Yes Documented Results: Negative w/proof Implanted On Prior [facility] Admission?: Yes Date: 08/18/16 Results: 0 mm PPD to be Administered?: No - Reproductive History Patient is a Female of Child Bearing Age (11 -55 yrs old): No (MALE) - Smoking Cessation Smoking history: Current every day smoker Have you smoked in the past 12 months: Yes Aproximately how many cigarettes per day: 10 Cigars Per Day: 0 Hx Chewing Tobacco Use: No Initiated information on smoking cessation: Yes 'Breaking Loose' booklet given: 12/17/16 - Substance & Tx. History Hx Alcohol Use: Yes (BEER/VODKA) Hx Substance Use: Yes (MARIJUANA) Substance Use Type: Alcohol, Marijuana Hx Substance Use Treatment: Yes ([facility]) - Substances Abused Alcohol Route: Oral Frequency: Daily Amount used: BEER(1-2 6PKS-24 OZ)VODK(2 PINTs) Age of first use: 15 Date of Last Use: 12/17/16 Marijuana/Hashish Route: Smoking Frequency: 1-2 times per week Amount used: $20-30 Age of first use: 13 Date of Last Use: 12/12/16 Family Disease History - Family Disease History Family Disease History: Diabetes: Grandparent (alcohol use ), CA: Mother, Brother (alcohol), Sister (alcohol), Respiratory: Brother, Other: Grandparent, Father (alcohol), Brother, Sister Admission Physical Exam S - Vital Signs Vital Signs: Vital Signs - 24 hr 12/17/16 09:48 Temperature 97.1 F L Pulse Rate 94 H Respiratory 20 Rate Blood Pressure 144/73 - Physical General Appearance: Yes: Moderate Distress, Irritable, Anxious HEENTM: Yes: EOMI, Normocephalic, SWETHA Respiratory: Yes: Chest Non-Tender, Lungs Clear, Normal Breath Sounds, No Respiratory Distress Neck: Yes: Supple, Trachea in good position Breast: Yes: Breast Exam Deferred Cardiology: Yes: Regular Rhythm, Regular Rate, S1, S2 Abdominal: Yes: Normal Bowel Sounds, Non Tender, Soft Genitourinary: Yes: Other (n/c) Back: Yes: Within Normal Limits Musculoskeletal: Yes: full range of Motion, Gait Steady Extremities: Yes: Normal Range of Motion, Non-Tender Neurological: Yes: educational adviser II-XII NML intact, Fully Oriented, Alert Integumentary: Yes: Dry, Warm Lymphatic: Yes: Within Normal Limits - Diagnostic (1) Hyperglycemia Current Visit: Yes Status: Acute (2) Alcohol dependence with uncomplicated withdrawal Current Visit: Yes Status: Acute (3) Asthma Current Visit: Yes Status: Chronic Qualifiers: Asthma severity: mild intermittent Asthma complication type: uncomplicated Qualified Code(s): J45.20 - Mild intermittent asthma, uncomplicated (4) DM (diabetes mellitus), type 2 Current Visit: Yes Status: Chronic Qualifiers: Diabetes mellitus complication status: with neurologic complications Diabetes mellitus complication detail: with polyneuropathy (5) Hyperlipidemia Current Visit: Yes Status: Chronic Qualifiers: Hyperlipidemia type: Pure hypercholesterolemia (6) Nicotine dependence Current Visit: Yes Status: Acute Qualifiers: Nicotine product type: cigarettes Substance use status: in withdrawal Qualified Code(s): F17.213 - Nicotine dependence, cigarettes, with withdrawal (7) Peripheral neuropathy Current Visit: Yes Status: Chronic Qualifiers: Peripheral neuropathy type: polyneuropathy associated with underlying disease Qualified Code(s): G63 - Polyneuropathy in diseases classified elsewhere Cleared for Admission [facility] - Detox or Rehab S Level of Care: Medically Managed Detox Regimen/Protocol: Librium S Breath Alcohol Content Breath Alcohol Content: 0 Urine Drug Screen - Results Drug Screen Negative: Yes
[2016-12-17] MEDS ORDERED: PATIENT'S OWN MEDICATION (NON-FORMULARY) (Insulin Glargine,Hum.Rec.Anlog 50 UNITS) SQ SCH (13:45)
[2016-12-17] MEDS ORDERED: ACETAMINOPHEN 325 MG TABLET (FP) PO PRN (13:51)
[2016-12-17] MEDS ORDERED: LOPERAMIDE HCL 2 MG CAPSULE PO PRN (13:51)
[2016-12-17] MEDS ORDERED: MAGNESIUM CITRATE 300 ML BOTTLE PO PRN (13:51)
[2016-12-17] MEDS ORDERED: MAGNESIUM HYDROX 2400MG/30ML ORAL SUSPENSION 30 ML CUP PO PRN (13:51)
[2016-12-17] MEDS ORDERED: chlordiazePOXIDE HCL 25 MG CAPSULE PO PRN (13:51)
[2016-12-17] MEDS ORDERED: MAG HYDROX/AL HYDROX/SIMETH 30 ML UNIT-DOSE CUP PO PRN (13:51)
[2016-12-17] MEDS ORDERED: guaiFENesin/D-METHORPHAN HB 10 ML UNIT-DOSE CUPS PO PRN (13:51)
[2016-12-17] MEDS ORDERED: hydrOXYzine PAMOATE 25 MG CAPSULE (FP) PO PRN (13:51)
[2016-12-17] MEDS ORDERED: NICOTINE POLACRILEX 2 MG GUM BUC PRN (13:51)
[2016-12-17] MEDS ORDERED: MENTHOL/PHENOL 1 EACH UD MM PRN (13:51)
[2016-12-17] MEDS ORDERED: chlordiazePOXIDE HCL 25 MG CAPSULE PO ONE (14:07)
[2016-12-17] MEDS: NICOTINE 14 MG/24 HOURS TOPICAL PATCH TD SCH (15:31)
[2016-12-17] MEDS: ASPIRIN 81 MG CHEWABLE TABLETS PO SCH (15:31)
--- NOTE | 2016-12-17 15:56 | EKG ---
Test Reason : Blood Pressure : / mmHG Vent. Rate : 079 BPM Atrial Rate : 079 BPM P-R Int : 122 ms QRS Dur : 126 ms QT Int : 426 ms P-R-T Axes : 043 081 037 degrees QTc Int : 488 ms NORMAL SINUS RHYTHM INCOMPLETE RIGHT BUNDLE BRANCH BLOCK ABNORMAL ECG WHEN COMPARED WITH ECG OF 16-NOV-2016 22:43, NO SIGNIFICANT CHANGE WAS FOUND Confirmed by LAUREN JOHNSON MD ([id number]) on 12/17/2016 3:55:40 PM Referred By: Confirmed By:LAUREN JOHNSON MD
[2016-12-17] MEDS ORDERED: INSULIN (NOVOLOG) ASPART 100 UNITS/ML 10ML VIAL ONE ×2 (16:38→21:38)
[2016-12-17] MEDS: INSULIN SLIDING SCALE (NOVOLOG) 1 VIAL SQ SCH ×2 (16:51→21:41)
[2016-12-17 18:09] LABS: URINE APPEARANCE CLEAR; URINE BILIRUBIN NEGATIVE (NEGATIVE); URINE BLOOD NEGATIVE (NEGATIVE); URINE COLOR STRAW; URINE GLUCOSE (UA) 3+ (NEGATIVE); URINE KETONE NEGATIVE (NEGATIVE); URINE LEUK ESTERASE NEGATIVE (NEGATIVE); URINE NITRITE NEGATIVE (NEGATIVE); URINE PROTEIN NEGATIVE (NEGATIVE); URINE UROBILINOGEN NEGATIVE E.U./dl (0.2-1.0)
[2016-12-17] MEDS: IBUPROFEN 400 MG TABLET (FP) PO PRN (18:23)
--- NOTE | 2016-12-17 18:35 | PN ---
[facility] Progress Note Note: received nurse call, patient is taking neurontin at home for "muscle twitching" , chart reviewed home meds list neurontine 600 mg bid continue detox
[2016-12-17 21:05] LABS: MCH 28.3 pg (25.7-33.7); MEAN CELL VOLUME 85.7 fl (80-96); MEAN PLT VOLUME 11.5 fl (7.5-11.1); PLATELET COUNT 194 K/MM3 (134-434); RDW 13.3 % (11.9-15.9); WHITE BLOOD COUNT 4.5 K/mm3 (4.0-10.0)
[2016-12-17 21:30] LABS: ALBUMIN 3.8 g/dl (3.4-5.0); BILIRUBIN,TOTAL 0.7 mg/dL (0.2-1.0); CALCIUM 9.4 mg/dL (8.5-10.1); CREATININE 1.3 mg/dL (0.7-1.3)
[2016-12-17] MEDS: INSULIN DETEMIR 100 UNITS/ML MDV SQ SCH (21:41)
[2016-12-17] MEDS: GABAPENTIN 300 MG CAPSULE (FP) PO SCH (22:11)
[2016-12-18] MEDS ORDERED: INSULIN (NOVOLOG) ASPART 100 UNITS/ML 10ML VIAL ONE ×3 (06:42→21:17)
[2016-12-18] MEDS: metFORMIN HCL 500 MG TABLET (FP) PO SCH (07:46)
[2016-12-18] MEDS: INSULIN SLIDING SCALE (NOVOLOG) 1 VIAL SQ SCH ×4 (07:51→21:51)
[2016-12-18] MEDS: ALBUTEROL SO4 6.7 GM HFA INHALER IH PRN (08:55)
[2016-12-18] MEDS: INSULIN DETEMIR 100 UNITS/ML MDV SQ SCH ×2 (10:01→21:51)
[2016-12-18] MEDS: ASPIRIN 81 MG CHEWABLE TABLETS PO SCH (10:02)
[2016-12-18] MEDS: PRENATAL VITAMINS W/ FOLIC ACID TABLET (FP) PO SCH (10:02)
[2016-12-18] MEDS: GABAPENTIN 300 MG CAPSULE (FP) PO SCH ×2 (10:02→22:21)
[2016-12-18] MEDS: BUDESONIDE/FORMETEROL FUMARATE 80/4.5 mcg INHALER IH SCH ×2 (10:03→22:24)
--- NOTE | 2016-12-18 10:14 | PN ---
[facility] CIWA - CIWA Score Nausea/Vomitin-No Nausea/No Vomiting Muscle Tremors: 4-Moderate,w/Arms Extend Anxiety: 5 Agitation: 5 Paroxysmal Sweats: 1-Minimal Palms Moist Orientation: 0-Oriented Tacttile Disturbances: 3-Moderate Itch/Numb/Burn Auditory Disturbances: 0-None Visual Disturbances: 0-None Headache: 0-None Present CIWA-Ar Total Score: 18 BHS Progress Note (SOAP) Subjective: ANXIETY,IRRITABILITY,SWEATS, TREMORS,INTERMITTENT SLEEP.C/O UNPRODUCTIVE COUGH Objective: 12/18/16 10:09 Vital Signs Temperature 97.6 F 12/18/16 09:36 Pulse Rate 88 12/18/16 09:36 Respiratory Rate 16 12/18/16 09:36 Blood Pressure 99/64 12/18/16 09:36 O2 Sat by Pulse Oximetry (%) Laboratory Last Values WBC 4.5 K/mm3 (4.0-10.0) 12/17/16 20:08 RBC 4.83 M/mm3 (4.00-5.60) 12/17/16 20:08 Hgb 13.7 GM/dL (11.7-16.9) D 12/17/16 20:08 Hct 41.4 % (35.4-49) 12/17/16 20:08 MCV 85.7 fl (80-96) 12/17/16 20:08 MCHC 33.0 g/dl (32.0-35.9) 12/17/16 20:08 RDW 13.3 % (11.9-15.9) 12/17/16 20:08 Plt Count 194 K/MM3 (134-434) D 12/17/16 20:08 MPV 11.5 fl (7.5-11.1) H 12/17/16 20:08 Sodium 128 mmol/L (136-145) L 12/17/16 20:08 Potassium 5.2 mmol/L (3.5-5.1) H 12/17/16 20:08 Chloride 91 mmol/L (98-107) L 12/17/16 20:08 Carbon Dioxide 26 mmol/L (21-32) 12/17/16 20:08 Anion Gap 11 (8-16) 12/17/16 20:08 BUN 15 mg/dL (7-18) D 12/17/16 20:08 Creatinine 1.3 mg/dL (0.7-1.3) 12/17/16 20:08 Creat Clearance w eGFR 56.90 (>60) 12/17/16 20:08 POC Glucometer 296 UNITS (()) 12/18/16 06:20 Random Glucose 843 mg/dL (74-106) H* D 12/17/16 20:08 Calcium 9.4 mg/dL (8.5-10.1) 12/17/16 20:08 Total Bilirubin 0.7 mg/dL (0.2-1.0) D 12/17/16 20:08 AST 22 U/L (15-37) D 12/17/16 20:08 ALT 39 U/L (12-78) D 12/17/16 20:08 Alkaline Phosphatase 153 U/L (45-117) H 12/17/16 20:08 Total Protein 7.0 g/dl (6.4-8.2) 12/17/16 20:08 Albumin 3.8 g/dl (3.4-5.0) 12/17/16 20:08 Urine Color Straw 12/17/16 15:00 Urine Appearance Clear 12/17/16 15:00 Urine pH 7.0 (5.0-8.0) 12/17/16 15:00 Ur Specific [place] 1.028 (1.001-1.035) 12/17/16 15:00 Urine Protein Negative (NEGATIVE) 12/17/16 15:00 Urine Glucose (UA) 3+ (NEGATIVE) H 12/17/16 15:00 Urine Ketones Negative (NEGATIVE) 12/17/16 15:00 Urine Blood Negative (NEGATIVE) 12/17/16 15:00 Urine Nitrite Negative (NEGATIVE) 12/17/16 15:00 Urine Bilirubin Negative (NEGATIVE) 12/17/16 15:00 Urine Urobilinogen Negative E.U./dl (0.2-1.0) 12/17/16 15:00 Ur Leukocyte Esterase Negative (NEGATIVE) 12/17/16 15:00 Hepatitis C Antibody 0.2 s/co ratio (0.0-0.9) 12/17/16 14:00 LABS NOTED LUNGS: CLEAR TO A/P NO RHONCHI OR WHEEZE NOTED. Assessment: 12/18/16 10:09 WITHDRAWAL SX Plan: REPEAT LAB ON 12/20/16 ADD SYMBICORT INHALER. SAFE TUSSIN DIRECTED FOR COUGH
[2016-12-18] MEDS ORDERED: guaiFENesin/D-M SUGAR-FREE/ACLHOL-FREE 118 ML BOTTLE PO PRN (10:18)
[2016-12-18] MEDS: NICOTINE 14 MG/24 HOURS TOPICAL PATCH TD SCH (10:22)
--- NOTE | 2016-12-18 19:34 | CONSULT ---
[facility] Psychiatric Consult - Data Date of interview: 12/18/16 Admission source: [facility] Identifying data: Another admission to [facility] for this 56 y/o AA male seeking detox treatment on 3 for alcohol,cocaine (self-report) and marijuana dependence.Patient is single without children,domiciled,unemployed and supported on SSI benefits. Substance Abuse History: - Smoking Cessation. Smoking history: Current every day smoker. Have you smoked in the past 12 months: Yes. Aproximately how many cigarettes per day: 10. Cigars Per Day: 0. Hx Chewing Tobacco Use: No. Initiated information on smoking cessation: Yes. 'Breaking Loose' booklet given : 12/17/16. - Substance & Tx. History. Hx Alcohol Use: Yes (BEER/VODKA). Hx Substance Use: Yes (MARIJUANA). Substance Use Type: Alcohol, Marijuana. Hx Substance Use Treatment: Yes ([facility]). - Substances Abused. Alcohol. Route: Oral. Frequency: Daily. Amount used: BEER(1-2 6PKS-24 OZ)VODK(2 PINTs) . Age of first use: 15. Date of Last Use: 12/17/16. Marijuana/Hashish. Route: Smoking. Frequency: 1-2 times per week. Amount used: $20-30. Age of first use: 13. Date of Last Use: 12/12/16. Confirmed by patient. Medical History: Insulin-dependent diabetes mellitus,bronchial asthma, hypercholesterolemia and peripheral neuropathy. Psychiatric History: No change since our most recent encounter a few weeks ago.History as follows : multiple psychiatric hospitalizations since 1984.Known to [facility] (committed for suicidal ideation/intent to jump off a bridge),[facility] and [facility].Diagnosed with Bipolar Disorder.No OPD care providers (patient uses emergency room doctors for refills of medications : prozac 20 mg/day + remeron 30 mg/hs. Physical/Sexual Abuse/Trauma History: Patient denies. Additional Comment: Drug Screen is negative. Mental Status Exam - Mental Status Exam Alert and Oriented to: Time, Place, Person Cognitive Function: Grossly Intact Patient Appearance: Well Groomed Mood: Nervous, Withdrawn Affect: Mood Congruent Patient Behavior: Fatigued, Appropriate, Cooperative Speech Pattern: Clear Voice Loudness: Normal Thought Process: Goal Oriented Thought Disorder: Not Present Hallucinations: Denies Suicidal Ideation: Denies Homicidal Ideation: Denies Insight/Judgement: Poor Sleep: Fair Appetite: Fair Muscle strength/Tone: Normal Gait/Station: Normal Psychiatric Findings - Problem List ([place] 1, 2,3) (1) Alcohol dependence with uncomplicated withdrawal Current Visit: Yes Status: Acute (2) Nicotine dependence Current Visit: Yes Status: Acute Qualifiers: Nicotine product type: cigarettes Substance use status: in withdrawal Qualified Code(s): F17.213 - Nicotine dependence, cigarettes, with withdrawal (3) Substance induced mood disorder Current Visit: Yes Status: Acute (4) Bipolar disorder Current Visit: Yes Status: Chronic Comment: Self-report. (5) Hyperglycemia Current Visit: Yes Status: Chronic (6) Asthma Current Visit: Yes Status: Chronic Qualifiers: Asthma severity: mild intermittent Asthma complication type: uncomplicated Qualified Code(s): J45.20 - Mild intermittent asthma, uncomplicated (7) DM (diabetes mellitus), type 2 Current Visit: Yes Status: Chronic Qualifiers: Diabetes mellitus complication status: with neurologic complications Diabetes mellitus complication detail: with polyneuropathy (8) Hyperlipidemia Current Visit: Yes Status: Chronic Qualifiers: Hyperlipidemia type: Pure hypercholesterolemia (9) Peripheral neuropathy Current Visit: Yes Status: Chronic Qualifiers: Peripheral neuropathy type: polyneuropathy associated with underlying disease Qualified Code(s): G63 - Polyneuropathy in diseases classified elsewhere - Initial Treatment Plan Initial Treatment Plan: Psychoeducation.Detoxification.Medications : prozac 20 mg po daily + remeron 15 mg po hs.Side effects/benefts discussed with the patient.He agrees with the patient.Observation.
[2016-12-18] MEDS: MIRTAZAPINE 15 MG TABLET (FP) PO SCH (22:22)
[2016-12-19] MEDS ORDERED: INSULIN (NOVOLOG) ASPART 100 UNITS/ML 10ML VIAL ONE ×3 (06:31→21:22)
[2016-12-19] MEDS: metFORMIN HCL 500 MG TABLET (FP) PO SCH (06:48)
[2016-12-19] MEDS: INSULIN SLIDING SCALE (NOVOLOG) 1 VIAL SQ SCH ×4 (07:24→22:14)
[2016-12-19] MEDS: GABAPENTIN 300 MG CAPSULE (FP) PO SCH ×2 (10:20→22:13)
[2016-12-19] MEDS: FLUoxetine HCL 20 MG CAPSULE (FP) PO SCH (10:20)
[2016-12-19] MEDS: ASPIRIN 81 MG CHEWABLE TABLETS PO SCH (10:20)
[2016-12-19] MEDS: PRENATAL VITAMINS W/ FOLIC ACID TABLET (FP) PO SCH (10:20)
[2016-12-19] MEDS: NICOTINE 14 MG/24 HOURS TOPICAL PATCH TD SCH (10:20)
[2016-12-19] MEDS: INSULIN DETEMIR 100 UNITS/ML MDV SQ SCH ×2 (10:21→22:14)
[2016-12-19] MEDS: BUDESONIDE/FORMETEROL FUMARATE 80/4.5 mcg INHALER IH SCH ×2 (10:21→22:50)
--- NOTE | 2016-12-19 11:00 | PN ---
[facility] CIWA - CIWA Score Nausea/Vomitin-No Nausea/No Vomiting Muscle Tremors: 4-Moderate,w/Arms Extend Anxiety: 4-Mod. Anxious/Guarded Agitation: 4-Moderately Restless Paroxysmal Sweats: 1-Minimal Palms Moist Orientation: 0-Oriented Tacttile Disturbances: 3-Moderate Itch/Numb/Burn Auditory Disturbances: 0-None Visual Disturbances: 0-None Headache: 0-None Present CIWA-Ar Total Score: 16 S Progress Note (SOAP) Subjective: ANXIETY,"DROWSY",SWEATS,CHILLS. Objective: 12/19/16 10:57 Vital Signs Temperature 97.0 F L 12/19/16 09:37 Pulse Rate 89 12/19/16 09:37 Respiratory Rate 20 12/19/16 09:37 Blood Pressure 98/65 12/19/16 09:37 O2 Sat by Pulse Oximetry (%) Laboratory Last Values WBC 4.5 K/mm3 (4.0-10.0) 12/17/16 20:08 RBC 4.83 M/mm3 (4.00-5.60) 12/17/16 20:08 Hgb 13.7 GM/dL (11.7-16.9) D 12/17/16 20:08 Hct 41.4 % (35.4-49) 12/17/16 20:08 MCV 85.7 fl (80-96) 12/17/16 20:08 MCHC 33.0 g/dl (32.0-35.9) 12/17/16 20:08 RDW 13.3 % (11.9-15.9) 12/17/16 20:08 Plt Count 194 K/MM3 (134-434) D 12/17/16 20:08 MPV 11.5 fl (7.5-11.1) H 12/17/16 20:08 Sodium 128 mmol/L (136-145) L 12/17/16 20:08 Potassium 5.2 mmol/L (3.5-5.1) H 12/17/16 20:08 Chloride 91 mmol/L (98-107) L 12/17/16 20:08 Carbon Dioxide 26 mmol/L (21-32) 12/17/16 20:08 Anion Gap 11 (8-16) 12/17/16 20:08 BUN 15 mg/dL (7-18) D 12/17/16 20:08 Creatinine 1.3 mg/dL (0.7-1.3) 12/17/16 20:08 Creat Clearance w eGFR 56.90 (>60) 12/17/16 20:08 POC Glucometer 238 UNITS (()) 12/19/16 06:00 Random Glucose 843 mg/dL (74-106) H* D 12/17/16 20:08 Calcium 9.4 mg/dL (8.5-10.1) 12/17/16 20:08 Total Bilirubin 0.7 mg/dL (0.2-1.0) D 12/17/16 20:08 AST 22 U/L (15-37) D 12/17/16 20:08 ALT 39 U/L (12-78) D 12/17/16 20:08 Alkaline Phosphatase 153 U/L (45-117) H 12/17/16 20:08 Total Protein 7.0 g/dl (6.4-8.2) 12/17/16 20:08 Albumin 3.8 g/dl (3.4-5.0) 12/17/16 20:08 Urine Color Straw 12/17/16 15:00 Urine Appearance Clear 12/17/16 15:00 Urine pH 7.0 (5.0-8.0) 12/17/16 15:00 Ur Specific [place] 1.028 (1.001-1.035) 12/17/16 15:00 Urine Protein Negative (NEGATIVE) 12/17/16 15:00 Urine Glucose (UA) 3+ (NEGATIVE) H 12/17/16 15:00 Urine Ketones Negative (NEGATIVE) 12/17/16 15:00 Urine Blood Negative (NEGATIVE) 12/17/16 15:00 Urine Nitrite Negative (NEGATIVE) 12/17/16 15:00 Urine Bilirubin Negative (NEGATIVE) 12/17/16 15:00 Urine Urobilinogen Negative E.U./dl (0.2-1.0) 12/17/16 15:00 Ur Leukocyte Esterase Negative (NEGATIVE) 12/17/16 15:00 RPR Titer Nonreactive (NONREACTIVE) 12/17/16 20:08 Hepatitis C Antibody 0.2 s/co ratio (0.0-0.9) 12/17/16 14:00 Assessment: 12/19/16 10:58 WITHDRAWAL SX Plan: CONTINUE DETOX LABS PENDING FOR 12/20/16
--- NOTE | 2016-12-19 20:55 | PN ---
S Progress Note Note: RECEIVED NURSE CALL PATIENT REFUSES LIBRIUM 15 MG VITAL SIGNS WITHIN NORMAL LIMIT CONTINUE DETOX
[2016-12-19] MEDS: MIRTAZAPINE 15 MG TABLET (FP) PO SCH (22:13)
[2016-12-20] MEDS: ALBUTEROL SO4 6.7 GM HFA INHALER IH PRN (05:38)
[2016-12-20] MEDS: metFORMIN HCL 500 MG TABLET (FP) PO SCH (06:35)
[2016-12-20] MEDS ORDERED: INSULIN (NOVOLOG) ASPART 100 UNITS/ML 10ML VIAL ONE ×3 (06:39→21:32)
[2016-12-20] MEDS: INSULIN SLIDING SCALE (NOVOLOG) 1 VIAL SQ SCH ×4 (07:46→21:39)
[2016-12-20] MEDS: INSULIN DETEMIR 100 UNITS/ML MDV SQ SCH ×2 (10:17→21:40)
[2016-12-20 10:18] LABS: INR 0.93 (0.82-1.09); PROTHROMBIN TIME (PATIENT) 10.2 SEC (9.98-11.88)
[2016-12-20] MEDS: FLUoxetine HCL 20 MG CAPSULE (FP) PO SCH (10:18)
[2016-12-20] MEDS: GABAPENTIN 300 MG CAPSULE (FP) PO SCH ×2 (10:18→22:14)
[2016-12-20] MEDS: PRENATAL VITAMINS W/ FOLIC ACID TABLET (FP) PO SCH (10:18)
[2016-12-20] MEDS: ASPIRIN 81 MG CHEWABLE TABLETS PO SCH (10:19)
[2016-12-20] MEDS: NICOTINE 14 MG/24 HOURS TOPICAL PATCH TD SCH (10:19)
[2016-12-20] MEDS: BUDESONIDE/FORMETEROL FUMARATE 80/4.5 mcg INHALER IH SCH ×2 (10:23→22:15)
[2016-12-20 10:36] LABS: ALK PHOS 111 U/L (45-117); ANION GAP 7 (8-16); BILIRUBIN,TOTAL 0.3 mg/dL (0.2-1.0); CALCIUM 9.4 mg/dL (8.5-10.1); CO2 28 mmol/L (21-32); CREATININE 0.9 mg/dL (0.7-1.3); SGOT/AST 64 U/L (15-37); SGPT/ALT 57 U/L (12-78); TOT PROT 5.7 g/dl (6.4-8.2)
[2016-12-20 10:59] LABS: GLUCOSE,RANDOM 305 mg/dL (74-106)
--- NOTE | 2016-12-20 12:26 | PN ---
[facility] Progress Note (SOAP) Subjective: ANXIETY,SWEATS,FATIGUE,IRRITABILITY. PT VERY NONCOMPLIANT WITH DIET. Objective: 12/20/16 12:24 Vital Signs Temperature 97.6 F 12/20/16 09:58 Pulse Rate 83 12/20/16 09:58 Respiratory Rate 18 12/20/16 09:58 Blood Pressure 139/80 12/20/16 09:58 O2 Sat by Pulse Oximetry (%) Laboratory Last Values WBC 4.5 K/mm3 (4.0-10.0) 12/17/16 20:08 RBC 4.83 M/mm3 (4.00-5.60) 12/17/16 20:08 Hgb 13.7 GM/dL (11.7-16.9) D 12/17/16 20:08 Hct 41.4 % (35.4-49) 12/17/16 20:08 MCV 85.7 fl (80-96) 12/17/16 20:08 MCHC 33.0 g/dl (32.0-35.9) 12/17/16 20:08 RDW 13.3 % (11.9-15.9) 12/17/16 20:08 Plt Count 194 K/MM3 (134-434) D 12/17/16 20:08 MPV 11.5 fl (7.5-11.1) H 12/17/16 20:08 INR 0.93 (0.82-1.09) 12/20/16 07:00 Sodium 138 mmol/L (136-145) 12/20/16 07:00 Potassium 4.6 mmol/L (3.5-5.1) 12/20/16 07:00 Chloride 103 mmol/L (98-107) D 12/20/16 07:00 Carbon Dioxide 28 mmol/L (21-32) 12/20/16 07:00 Anion Gap 7 (8-16) L 12/20/16 07:00 BUN 23 mg/dL (7-18) H D 12/20/16 07:00 Creatinine 0.9 mg/dL (0.7-1.3) D 12/20/16 07:00 Creat Clearance w eGFR > 60 (>60) 12/20/16 07:00 POC Glucometer 405 UNITS (()) 12/20/16 11:48 Random Glucose 305 mg/dL (74-106) H* D 12/20/16 07:00 Calcium 9.4 mg/dL (8.5-10.1) 12/20/16 07:00 Total Bilirubin 0.3 mg/dL (0.2-1.0) D 12/20/16 07:00 AST 64 U/L (15-37) H D 12/20/16 07:00 ALT 57 U/L (12-78) D 12/20/16 07:00 Alkaline Phosphatase 111 U/L (45-117) D 12/20/16 07:00 Total Protein 5.7 g/dl (6.4-8.2) L 12/20/16 07:00 Albumin 3.0 g/dl (3.4-5.0) L D 12/20/16 07:00 Urine Color Straw 12/17/16 15:00 Urine Appearance Clear 12/17/16 15:00 Urine pH 7.0 (5.0-8.0) 12/17/16 15:00 Ur Specific [place] 1.028 (1.001-1.035) 12/17/16 15:00 Urine Protein Negative (NEGATIVE) 12/17/16 15:00 Urine Glucose (UA) 3+ (NEGATIVE) H 12/17/16 15:00 Urine Ketones Negative (NEGATIVE) 12/17/16 15:00 Urine Blood Negative (NEGATIVE) 12/17/16 15:00 Urine Nitrite Negative (NEGATIVE) 12/17/16 15:00 Urine Bilirubin Negative (NEGATIVE) 12/17/16 15:00 Urine Urobilinogen Negative E.U./dl (0.2-1.0) 12/17/16 15:00 Ur Leukocyte Esterase Negative (NEGATIVE) 12/17/16 15:00 RPR Titer Nonreactive (NONREACTIVE) 12/17/16 20:08 Hepatitis C Antibody 0.2 s/co ratio (0.0-0.9) 12/17/16 14:00 LFTs MUCH IMPROVED; INR WNL Assessment: 12/20/16 12:25 WITHDRAWAL SX UNCONTROLLED DM Plan: CONTINUE DETOX
[2016-12-20] MEDS: IBUPROFEN 400 MG TABLET (FP) PO PRN (17:37)
[2016-12-20] MEDS: MIRTAZAPINE 15 MG TABLET (FP) PO SCH (22:14)
[2016-12-21] MEDS: IBUPROFEN 400 MG TABLET (FP) PO PRN ×2 (00:29→05:32)
[2016-12-21] MEDS ORDERED: INSULIN (NOVOLOG) ASPART 100 UNITS/ML 10ML VIAL ONE (06:20)
[2016-12-21] MEDS: metFORMIN HCL 500 MG TABLET (FP) PO SCH (07:00)
[2016-12-21] MEDS: INSULIN SLIDING SCALE (NOVOLOG) 1 VIAL SQ SCH ×2 (07:01→11:56)
--- NOTE | 2016-12-21 09:43 | DS ---
[facility] Detox Discharge Summary Admission Date: 12/17/16 Discharge Date: 12/21/16 - History Present History: Alcohol Dependence Additional Comments: DETOX COMPLETED. ALERT O X 3. NAD. PT HAS BEEN INSTRUCTED TO FOLLOW UP WITH MEDICAL CARE AT [facility] FOR HIS COMORBID MEDICAL CONDITIONS. Pertinent Past History: ASTHMA UNCONTROLLED DM HYPERLIPIDEMIA HX MOOD DISORDER - Physical Exam Results Vital Signs: Vital Signs Temperature 96.6 F L 12/21/16 06:33 Pulse Rate 80 12/21/16 06:33 Respiratory Rate 18 12/21/16 06:33 Blood Pressure 116/65 12/21/16 06:33 O2 Sat by Pulse Oximetry (%) Pertinent Admission Physical Exam Findings: WITHDRAWAL SX Laboratory Last Values WBC 4.5 K/mm3 (4.0-10.0) 12/17/16 20:08 RBC 4.83 M/mm3 (4.00-5.60) 12/17/16 20:08 Hgb 13.7 GM/dL (11.7-16.9) D 12/17/16 20:08 Hct 41.4 % (35.4-49) 12/17/16 20:08 MCV 85.7 fl (80-96) 12/17/16 20:08 MCHC 33.0 g/dl (32.0-35.9) 12/17/16 20:08 RDW 13.3 % (11.9-15.9) 12/17/16 20:08 Plt Count 194 K/MM3 (134-434) D 12/17/16 20:08 MPV 11.5 fl (7.5-11.1) H 12/17/16 20:08 INR 0.93 (0.82-1.09) 12/20/16 07:00 Sodium 138 mmol/L (136-145) 12/20/16 07:00 Potassium 4.6 mmol/L (3.5-5.1) 12/20/16 07:00 Chloride 103 mmol/L (98-107) D 12/20/16 07:00 Carbon Dioxide 28 mmol/L (21-32) 12/20/16 07:00 Anion Gap 7 (8-16) L 12/20/16 07:00 BUN 23 mg/dL (7-18) H D 12/20/16 07:00 Creatinine 0.9 mg/dL (0.7-1.3) D 12/20/16 07:00 Creat Clearance w eGFR > 60 (>60) 12/20/16 07:00 POC Glucometer 311 UNITS (()) 12/21/16 05:30 Random Glucose 305 mg/dL (74-106) H* D 12/20/16 07:00 Calcium 9.4 mg/dL (8.5-10.1) 12/20/16 07:00 Total Bilirubin 0.3 mg/dL (0.2-1.0) D 12/20/16 07:00 AST 64 U/L (15-37) H D 12/20/16 07:00 ALT 57 U/L (12-78) D 12/20/16 07:00 Alkaline Phosphatase 111 U/L (45-117) D 12/20/16 07:00 Total Protein 5.7 g/dl (6.4-8.2) L 12/20/16 07:00 Albumin 3.0 g/dl (3.4-5.0) L D 12/20/16 07:00 Urine Color Straw 12/17/16 15:00 Urine Appearance Clear 12/17/16 15:00 Urine pH 7.0 (5.0-8.0) 12/17/16 15:00 Ur Specific [place] 1.028 (1.001-1.035) 12/17/16 15:00 Urine Protein Negative (NEGATIVE) 12/17/16 15:00 Urine Glucose (UA) 3+ (NEGATIVE) H 12/17/16 15:00 Urine Ketones Negative (NEGATIVE) 12/17/16 15:00 Urine Blood Negative (NEGATIVE) 12/17/16 15:00 Urine Nitrite Negative (NEGATIVE) 12/17/16 15:00 Urine Bilirubin Negative (NEGATIVE) 12/17/16 15:00 Urine Urobilinogen Negative E.U./dl (0.2-1.0) 12/17/16 15:00 Ur Leukocyte Esterase Negative (NEGATIVE) 12/17/16 15:00 RPR Titer Nonreactive (NONREACTIVE) 12/17/16 20:08 Hepatitis C Antibody 0.2 s/co ratio (0.0-0.9) 12/17/16 14:00 - Treatment Hospital Course: Detox Protocol Followed, Detoxed Safely, Responded well, Discharged Condition Good - Medication Discharge Medications: Ambulatory Orders Insulin Regular, Human [Humulin R -] 0 units SQ AC 06/11/14 Hydroxyzine Pamoate [Vistaril -] 50 mg PO HS 11/23/15 Fluoxetine HCl [Prozac] 30 mg PO DAILY #30 capsule 09/12/16 Mirtazapine [Remeron -] 30 mg PO HS #30 tablet 11/17/16 Albuterol Sulfate Inhaler - [Ventolin HFA Inhaler -] 2 puff IH Q4H PRN #1 inhaler 11/20/16 Fluoxetine HCl [Prozac -] 20 mg PO DAILY #30 capsule 12/19/16 Mirtazapine [Remeron -] 15 mg PO HS #30 tablet 12/19/16 Aspirin [ASA -] 81 mg PO DAILY #30 tab.chew 12/21/16 Atorvastatin Ca [Lipitor] 40 mg PO HS #30 tablet 12/21/16 Gabapentin [Neurontin -] 600 mg PO BID #60 12/21/16 Insulin Glargine,Hum.rec.anlog [Lantus Solostar PEN -] 50 units SQ BID #1 ins Metformin HCl [Glucophage -] 1,000 mg PO DAILY@0700 #30 tablet 12/21/16 - Diagnosis (1) Hyperglycemia Status: Chronic (2) Alcohol dependence with uncomplicated withdrawal Status: Acute (3) Asthma Status: Chronic Qualifiers: Asthma severity: mild intermittent Asthma complication type: uncomplicated Qualified Code(s): J45.20 - Mild intermittent asthma, uncomplicated (4) DM (diabetes mellitus), type 2 Status: Chronic Qualifiers: Diabetes mellitus complication status: with neurologic complications Diabetes mellitus complication detail: with polyneuropathy (5) Hyperlipidemia Status: Chronic Qualifiers: Hyperlipidemia type: Pure hypercholesterolemia (6) Nicotine dependence Status: Acute Qualifiers: Nicotine product type: cigarettes Substance use status: in withdrawal Qualified Code(s): F17.213 - Nicotine dependence, cigarettes, with withdrawal (7) Peripheral neuropathy Status: Chronic Qualifiers: Peripheral neuropathy type: polyneuropathy associated with underlying disease Qualified Code(s): G63 - Polyneuropathy in diseases classified elsewhere - AMA Did Patient Leave Against Medical Advice: No
[2016-12-21 10:38] VITALS: BP 109/70; PULSE 85; TEMP 97.4
[2016-12-21] MEDS: ASPIRIN 81 MG CHEWABLE TABLETS PO SCH (11:55)
[2016-12-21] MEDS: INSULIN DETEMIR 100 UNITS/ML MDV SQ SCH (11:55)
[2016-12-21] MEDS: BUDESONIDE/FORMETEROL FUMARATE 80/4.5 mcg INHALER IH SCH (11:56)
[2016-12-21] MEDS: FLUoxetine HCL 20 MG CAPSULE (FP) PO SCH (11:56)
[2016-12-21] MEDS: NICOTINE 14 MG/24 HOURS TOPICAL PATCH TD SCH (11:56)
[2016-12-21] MEDS: PRENATAL VITAMINS W/ FOLIC ACID TABLET (FP) PO SCH (11:56)
[2016-12-21] MEDS: GABAPENTIN 300 MG CAPSULE (FP) PO SCH (11:56)
== END 2016-12-21 12:14 | disposition home or self-care (01) | DRG 775 ==
LOC: YASAS 09:29 → Y3N 13:23
PROVIDERS: ADMIT Internal Medicine Addiction Medicine; ATTEND Internal Medicine
PROC: HZ2ZZZZ Detoxification Services for Substance Abuse Treatment (ICD-10-PCS; principal; 2016-12-21)
DX: F10.230 Alcohol dependence with withdrawal, uncomplicated (principal); F17.213 Nicotine dependence, cigarettes, with withdrawal; F31.9 Bipolar disorder, unspecified; F19.24 Other psychoactive substance dependence with psychoactive substance-induced mood disorder; J45.20 Mild intermittent asthma, uncomplicated; E11.42 Type 2 diabetes mellitus with diabetic polyneuropathy; Z79.4 Long term (current) use of insulin; Z79.84 Long term (current) use of oral hypoglycemic drugs; E78.5 Hyperlipidemia, unspecified
CPT/HCPCS: 36415; 80053; 81003; 85027; 85610; 86593; 93005; 93010

== ENCOUNTER 2018-06-10 19:22 | Inpatient (IN) | payer OTHER ==
[2018-06-10 19:50] VITALS: BMI 24.0
[2018-06-10] MEDS ORDERED: MELATONIN 5 MG TABLETS PO PRN (22:00)
--- NOTE | 2018-06-10 22:52 | HP ---
CIWA Score - CIWA Score Nausea/Vomitin-No Nausea/No Vomiting Muscle Tremors: 2 Anxiety: 3 Agitation: 4-Moderately Restless Paroxysmal Sweats: 3 Orientation: 0-Oriented Tacttile Disturbances: 2-Mild Itch/Numbness/Burn (both feet and hands) Auditory Disturbances: 0-None Visual Disturbances: 2-Mild Sensitivity Headache: 0-None Present CIWA-Ar Total Score: 16 Admission [facility] - HPI Chief Complaint: alcohol withdrawal Allergies/Adverse Reactions: Allergies Allergy/AdvReac Type Severity Reaction Status Date / Time Fish Containing Products Allergy Severe Nausea Verified 12/17/16 11:52 haloperidol [From Haldol] Allergy Severe Hives Verified 12/17/16 11:52 haloperidol lactate Allergy Severe Hives Verified 12/17/16 11:52 [From Haldol] History of Present Illness: 57 yo male with hx of marijuana, nicotine and alcohol dependence is here seeking detox. Last [facility] 12/17/16 -12/21/16. PMHX: asthma,IDDM, migraine headaches , neuropathy, HDL, HTN, bipolar. Denies suicidal / homicidal ideation. Reports hx of suicide attempt April 2017. Denies hx of seizures or blackouts. Longest period of sobriety five years. Exam Limitations: No Limitations - Ebola screening Have you been sick,other than usual withdrawal symptoms: No - Review of Systems Constitutional: Loss of Appetite, Changes in sleep, Unintentional Wgt. Loss EENT: reports: Cataracts (bilateral , pending surgery) Respiratory: reports: No Symptoms reported Cardiac: reports: No Symptoms Reported GI: reports: Diarrhea : reports: No Symptoms Reported Musculoskeletal: reports: No Symptoms Reported Integumentary: reports: No Symptoms Reported Neuro: reports: No Symptoms reported, Numbness (both hands and feet) Endocrine: reports: Increased Thirst Hematology: reports: No Symptoms Reported Psychiatric: reports: Orientated x3, Anxious Other Systems: Reviewed and Negative Patient History - Patient Medical History Hx Anemia: No Hx Asthma: Yes (MDI) Hx Chronic Obstructive Pulmonary Disease (COPD): No Hx Cancer: No Hx Cardiac Disorders: No Hx Congestive Heart Failure: No Hx Hypertension: No Hx Hypercholesterolemia: Yes (ON MEDS) Hx Pacemaker: No HX Cerebrovascular Accident: No Hx Seizures: No Hx Dementia: No Hx Diabetes: Yes (BGM high--UNCONTROLLED DM) Hx Gastrointestinal Disorders: No Hx Liver Disease: No Hx Genitourinary Disorders: No Hx Sexually Transmitted Disorders: No Hx Renal Disease (ESRD): No Hx Thyroid Disease: No Hx Human Immunodeficiency Virus (HIV): No (NEGATIVE HX, one year ago ) Hx Hepatitis C: No Hx Depression: Yes (ON MED) Hx Suicide Attempt: No (DENIES) Hx Bipolar Disorder: Yes Hx Schizophrenia: No - Patient Surgical History Past Surgical History: No Hx Neurologic Surgery: No Hx Cataract Extraction: No Hx Cardiac Surgery: No Hx Lung Surgery: No Hx Breast Surgery: No Hx Breast Biopsy: No Hx Abdominal Surgery: No Hx Appendectomy: No Hx Cholecystectomy: No Hx Genitourinary Surgery: No Hx Section: No Hx Orthopedic Surgery: No Anesthesia Reaction: No - PPD History Documented Results: Negative w/proof Date: 08/18/16 Results: 0 mm PPD to be Administered?: Yes - Smoking Cessation Smoking history: Current every day smoker Have you smoked in the past 12 months: Yes Aproximately how many cigarettes per day: 10 Cigars Per Day: 0 Hx Chewing Tobacco Use: No Initiated information on smoking cessation: Yes 'Breaking Loose' booklet given: 06/10/18 - Substance & Tx. History Hx Alcohol Use: Yes Hx Substance Use: Yes Substance Use Type: Alcohol Hx Substance Use Treatment: Yes ([facility] 12/17/16 - 12/21/16) - Substances Abused Alcohol Route: Oral Frequency: Daily Amount used: 6 x 16 oz beer Age of first use: 13 Date of Last Use: 06/10/18 Family Disease History - Family Disease History Family Disease History: Diabetes: Grandparent (alcohol use ), CA: Mother, Brother (alcohol), Sister (alcohol), Respiratory: Brother, Other: Grandparent, Father (alcohol), Brother, Sister Admission Physical Exam [facility] - Vital Signs Vital Signs: Vital Signs - 24 hr 06/10/18 19:42 Temperature 98.3 F Pulse Rate 90 Respiratory 20 Rate Blood Pressure 160/79 - Physical General Appearance: Yes: Appropriately Dressed, Mild Distress, Thin, Sweating, Anxious HEENTM: Yes: EOMI, Hearing grossly Normal, Normal ENT Inspection, Normal Voice, SWETHA, Pharynx Normal, Other (reprots decrease vision bilateral pending surgery) Respiratory: Yes: Within Normal Limits Neck: Yes: No masses,lesions,Nodules, Trachea in good position Breast: Yes: Breast Exam Deferred Cardiology: Yes: Within Normal Limits Abdominal: Yes: Normal Bowel Sounds, Non Tender, Flat, Soft Genitourinary: Yes: Within Normal Limits Back: Yes: Within Normal Limits Musculoskeletal: Yes: full range of Motion, Gait Steady, Pelvis Stable Extremities: Yes: Normal Capillary Refill, Normal Inspection, Normal Range of Motion, Non-Tender Neurological: Yes: dioramist II-XII NML intact, Fully Oriented, Alert, Motor Strength 5/5, Depressed Affect Integumentary: Yes: Normal Color, Warm, Diaphoresis Lymphatic: Yes: Within Normal Limits - Diagnostic (1) Alcohol dependence with uncomplicated withdrawal Current Visit: Yes Status: Acute (2) Nicotine dependence Current Visit: Yes Status: Acute Qualifiers: Nicotine product type: cigarettes Substance use status: in withdrawal Qualified Code(s): F17.213 - Nicotine dependence, cigarettes, with withdrawal (3) Asthma Current Visit: Yes Status: Chronic Qualifiers: Asthma severity: mild intermittent Asthma complication type: uncomplicated (4) DM (diabetes mellitus), type 2 Current Visit: Yes Status: Chronic Qualifiers: Diabetes mellitus skilled nursing insulin use: with skilled nursing use Diabetes mellitus complication status: with neurologic complications Diabetes mellitus complication detail: with polyneuropathy Qualified Code(s): E11.42 - Type 2 diabetes mellitus with diabetic polyneuropathy; Z79.4 - senior care (current) use of insulin (5) Hypertension Current Visit: Yes Status: Chronic Qualifiers: Hypertension type: essential hypertension Qualified Code(s): I10 - Essential (primary) hypertension Cleared for Admission [facility] - Detox or Rehab [facility] Level of Care: Medically Managed Detox Regimen/Protocol: Librium [facility] Breath Alcohol Content Breath Alcohol Content: 0.038 Urine Drug Screen - Results Drug Screen Negative: Yes
[2018-06-10] MEDS ORDERED: ACETAMINOPHEN 325 MG TABLET (FP) PO PRN (23:11)
[2018-06-10] MEDS ORDERED: chlordiazePOXIDE HCL 25 MG CAPSULE PO PRN (23:11)
[2018-06-10] MEDS ORDERED: guaiFENesin/D-METHORPHAN HB 10 ML UNIT-DOSE CUPS PO PRN (23:11)
[2018-06-10] MEDS ORDERED: LOPERAMIDE HCL 2 MG CAPSULE PO PRN (23:11)
[2018-06-10] MEDS ORDERED: MAGNESIUM HYDROX 2400MG/30ML ORAL SUSPENSION 30 ML CUP PO PRN (23:11)
[2018-06-10] MEDS ORDERED: P-EPHED 60MG/TRIPROLIDI 2.5MG TABLET PO PRN (23:11)
[2018-06-10] MEDS ORDERED: MAG HYDROX/AL HYDROX/SIMETH 30 ML UNIT-DOSE CUP PO PRN (23:11)
[2018-06-10] MEDS ORDERED: MAGNESIUM CITRATE 300 ML BOTTLE PO PRN (23:11)
[2018-06-10] MEDS ORDERED: IBUPROFEN 400 MG TABLET (FP) PO PRN (23:11)
[2018-06-10] MEDS ORDERED: MENTHOL/PHENOL 1 EACH UD MM PRN (23:11)
[2018-06-11] MEDS: chlordiazePOXIDE HCL 25 MG CAPSULE PO SCH ×5 (03:06→22:35)
[2018-06-11] MEDS ORDERED: INSULIN (NOVOLOG) ASPART 100 UNITS/ML 10ML VIAL SQ ONE (03:07)
[2018-06-11] MEDS ORDERED: ALBUTEROL SO4 8 GM HFA INHALER IH PRN (03:59)
[2018-06-11] MEDS: GABAPENTIN 300 MG CAPSULE (FP) PO SCH ×3 (07:14→22:35)
[2018-06-11] MEDS: metFORMIN HCL 500 MG TABLET (FP) PO SCH ×2 (07:14→17:48)
[2018-06-11] MEDS: INSULIN (NOVOLOG) ASPART 100 UNITS/ML 10ML VIAL SQ SCH ×4 (07:15→18:02)
[2018-06-11] MEDS: ASPIRIN 81 MG CHEWABLE TABLETS PO SCH (10:14)
[2018-06-11] MEDS: PRENATAL VITAMINS W/ FOLIC ACID TABLET (FP) PO SCH (10:14)
[2018-06-11] MEDS: LISINOPRIL 20 MG TABLET (FP) PO SCH (10:14)
--- NOTE | 2018-06-11 11:07 | PN ---
S CIWA - CIWA Score Nausea/Vomitin-No Nausea/No Vomiting Muscle Tremors: 4-Moderate,w/Arms Extend Anxiety: 4-Mod. Anxious/Guarded Agitation: 4-Moderately Restless Paroxysmal Sweats: 1-Minimal Palms Moist Orientation: 0-Oriented Tacttile Disturbances: 0-None Auditory Disturbances: 0-None Visual Disturbances: 0-None Headache: 0-None Present CIWA-Ar Total Score: 13 BHS Progress Note (SOAP) Subjective: C/OANXIETY,SWEATS,SLIGHT TREMORS, INTERMITTENT SLEEP. Objective: 06/11/18 11:06 Vital Signs 06/11/18 06/11/18 06/11/18 06:20 06:30 09:15 Temperature 97.8 F 97.4 F L Pulse Rate 79 79 Respiratory 18 18 18 Rate Blood Pressure 114/64 114/61 LABS PENDING Assessment: 06/11/18 11:06 WITHDRAWAL SX Plan: CONTINUE DETOX
[2018-06-11] MEDS ORDERED: PNEUMOCOCCAL 23 VACCINE 0.5 ML VIAL IM ONE (12:00)
[2018-06-11] MEDS ORDERED: PNEUMOC 13-VAL CONJ-DIP CRM/PF 0.5 ML DISP.SYRIN IM ONE (12:00)
[2018-06-11] MEDS ORDERED: NICOTINE POLACRILEX 4 MG GUM BUC PRN (15:11)
[2018-06-11 16:07] LABS: HEMATOCRIT 39.2 % (35.4-49); HEMOGLOBIN 12.9 GM/dL (11.7-16.9); MCH 27.6 pg (25.7-33.7); MCHC 32.8 g/dl (32.0-35.9); MEAN CELL VOLUME 84.3 fl (80-96); MEAN PLT VOLUME 11.1 fl (7.5-11.1); PLATELET COUNT 181 K/MM3 (134-434); RBC 4.65 M/mm3 (4.00-5.60); RDW 13.3 % (11.9-15.9); WHITE BLOOD COUNT 4.9 K/mm3 (4.0-10.0)
--- NOTE | 2018-06-11 16:33 | CONSULT ---
[facility] Psychiatric Consult - Data Date of interview: 06/11/18 Admission source: [facility] Identifying data: This is one of multiple admissions to [facility] for this 56 y/ o AA male seeking detoxification treatment (alcohol dependence).Currently on [facility].Patient is single without children,domiciled,unemployed and supported on SSI benefits. Substance Abuse History: Confirmed by the patient in this interview.Details in current [facility] report : Smoking history: Current every day smoker. Have you smoked in the past 12 months: Yes. Aproximately how many cigarettes per day: 10. Cigars Per Day: 0. Hx Chewing Tobacco Use: No. Initiated information on smoking cessation: Yes. 'Breaking Loose' booklet given: 06/10/18. - Substance & Tx. History. Hx Alcohol Use: Yes. Hx Substance Use: Yes. Substance Use Type : Alcohol. Hx Substance Use Treatment: Yes ([facility] 12/17/16 - 12/21/16). - Substances Abused. Alcohol. Route: Oral. Frequency: Daily. Amount used: 6 x 16 oz beer. Age of first use: 13. Date of Last Use: 06/10/18 Medical History: Insulin-dependent diabetes mellitus,bronchial asthma, hypercholesterolemia and peripheral neuropathy. Psychiatric History: History of multiple psychiatric hospitalizations since 1984.Patient is known to [facility] (committed for suicidal ideation/intent to jump off a bridge),[facility] and [facility].Diagnosed with Bipolar Disorder.Mr Bond declares that e his outpatient psychiatric services at the [facility] ( medications : prozac 20 mg/day + remeron 30 mg/hs).History of suicide attempt via deliberate self-exposure to oncoming traffic (2017). Physical/Sexual Abuse/Trauma History: Patient declines to discuss this domain. Additional Comment: Drug Screen is negative. Mental Status Exam - Mental Status Exam Alert and Oriented to: Time, Place, Person Cognitive Function: Good Patient Appearance: Well Groomed Mood: Withdrawn Affect: Mood Congruent Patient Behavior: Fatigued, Appropriate, Cooperative Speech Pattern: Clear Voice Loudness: Normal Thought Process: Intact, Goal Oriented Thought Disorder: Not Present Hallucinations: Denies Suicidal Ideation: Denies Homicidal Ideation: Denies Insight/Judgement: Poor Sleep: Poorly, Difficulty falling asleep Appetite: Good Muscle strength/Tone: Normal Gait/Station: Normal Psychiatric Findings - Problem List ([place] 1, 2,3) (1) Alcohol dependence with uncomplicated withdrawal Current Visit: Yes Status: Acute (2) Nicotine dependence Current Visit: Yes Status: Acute Qualifiers: Nicotine product type: cigarettes Substance use status: in withdrawal Qualified Code(s): F17.213 - Nicotine dependence, cigarettes, with withdrawal (3) Substance induced mood disorder Current Visit: Yes Status: Acute (4) Mood disorder Current Visit: Yes Status: Chronic (5) Insomnia Current Visit: Yes Status: Acute - Initial Treatment Plan Initial Treatment Plan: Psychoeducation.Sleep hygiene.Detoxification.Group sessions.Medications : prozac 20 mg po daily + remeron 15 mg po hs (verified by pharmacy claims of 05/30/18 at [facility]).Side effects/benefits discussed with the patient.Mr Bond agrees to this careplan.Observation.
[2018-06-11 16:38] LABS: ALBUMIN 3.4 g/dl (3.4-5.0); ANION GAP 9 MMOL/L (8-16); BLOOD UREA NITROGEN 25 mg/dL (7-18); CALCIUM 9.2 mg/dL (8.5-10.1); CHLORIDE 99 mmol/L (98-107); CO2 28 mmol/L (21-32); SGPT/ALT 27 U/L (12-78); SODIUM 136 mmol/L (136-145)
[2018-06-11 16:41] LABS: ALK PHOS 92 U/L (45-117); BILIRUBIN,TOTAL 0.2 mg/dL (0.2-1.0); CREATININE 1.3 mg/dL (0.7-1.3); SGOT/AST 27 U/L (15-37); TOT PROT 6.6 g/dl (6.4-8.2)
[2018-06-11 16:42] LABS: GLUCOSE,RANDOM 440 mg/dL (74-106)
[2018-06-11 16:47] LABS: URINE APPEARANCE CLEAR; URINE BILIRUBIN NEGATIVE (<2.0 mg/dL); URINE COLOR LTYELLOW; URINE GLUCOSE (UA) 3+ (NEGATIVE); URINE KETONE NEGATIVE (NEGATIVE); URINE LEUK ESTERASE NEGATIVE (NEGATIVE); URINE NITRITE NEGATIVE (NEGATIVE); URINE UROBILINOGEN NEGATIVE mg/dL (0.2-1.0)
[2018-06-11 16:54] LABS: URINE PROTEIN 1+ (NEGATIVE)
[2018-06-11 17:01] LABS: EPI CELLS RARE /HPF (FEW); URINE BACTERIA RARE /hpf (NONE SEEN); URINE HYALINE CAST 1 /lpf; URINE MUCUS RARE
[2018-06-11] MEDS: NICOTINE 21 MG/24 HOURS TOPICAL PATCH TD SCH (17:46)
[2018-06-11] MEDS: THIAMINE HCL 100 MG TABLET (FP) PO SCH (22:35)
[2018-06-11] MEDS: MIRTAZAPINE 15 MG TABLET (FP) PO SCH (22:36)
[2018-06-11] MEDS: ATORVASTATIN CA 40 MG TABLET (FP) PO SCH (22:36)
[2018-06-11] MEDS: INSULIN (LEVEMIR) 100 UNITS/ML UNITS SQ SCH (22:39)
[2018-06-12] MEDS: chlordiazePOXIDE HCL 25 MG CAPSULE PO SCH ×3 (05:27→17:31)
[2018-06-12] MEDS: GABAPENTIN 300 MG CAPSULE (FP) PO SCH ×3 (05:27→22:16)
[2018-06-12] MEDS: metFORMIN HCL 500 MG TABLET (FP) PO SCH ×2 (07:39→17:31)
[2018-06-12] MEDS: INSULIN (NOVOLOG) ASPART 100 UNITS/ML 10ML VIAL SQ SCH ×3 (07:39→17:31)
[2018-06-12] MEDS: PRENATAL VITAMINS W/ FOLIC ACID TABLET (FP) PO SCH (10:22)
[2018-06-12] MEDS: LISINOPRIL 20 MG TABLET (FP) PO SCH (10:22)
[2018-06-12] MEDS: ASPIRIN 81 MG CHEWABLE TABLETS PO SCH (10:22)
[2018-06-12] MEDS: NICOTINE 21 MG/24 HOURS TOPICAL PATCH TD SCH (10:23)
[2018-06-12] MEDS: FLUoxetine HCL 20 MG CAPSULE (FP) PO SCH (10:23)
--- NOTE | 2018-06-12 12:09 | PN ---
S CIWA - CIWA Score Nausea/Vomitin-No Nausea/No Vomiting Muscle Tremors: 4-Moderate,w/Arms Extend Anxiety: 4-Mod. Anxious/Guarded Agitation: 4-Moderately Restless Paroxysmal Sweats: 1-Minimal Palms Moist Orientation: 0-Oriented Tacttile Disturbances: 0-None Auditory Disturbances: 0-None Visual Disturbances: 0-None Headache: 0-None Present CIWA-Ar Total Score: 13 S Progress Note (SOAP) Subjective: PT WAS SEEN IN BED. REPORTS FATIGUE,ANXIETY, CHILLS. Objective: 06/12/18 12:09 Vital Signs 06/12/18 06/12/18 06:17 10:29 Temperature 97 F L 98.4 F Pulse Rate 74 67 Respiratory 18 18 Rate Blood Pressure 124/73 102/66 Laboratory Tests 06/11/18 06/11/18 06/11/18 10:30 10:30 10:30 WBC 4.9 RBC 4.65 Hgb 12.9 Hct 39.2 MCV 84.3 MCH 27.6 MCHC 32.8 RDW 13.3 Plt Count 181 MPV 11.1 Sodium 136 Potassium 5.0 Chloride 99 Carbon Dioxide 28 Anion Gap 9 BUN 25 H Creatinine 1.3 Creat Clearance w eGFR 56.70 POC Glucometer Random Glucose 440 H* D Calcium 9.2 Total Bilirubin 0.2 AST 27 D ALT 27 D Alkaline Phosphatase 92 Total Protein 6.6 Albumin 3.4 Urine Color Urine Appearance Urine pH Ur Specific [place] Urine Protein Urine Glucose (UA) Urine Ketones Urine Blood Urine Nitrite Urine Bilirubin Urine Urobilinogen Ur Leukocyte Esterase Urine WBC (Auto) Urine RBC (Auto) Ur Epithelial Cells Urine Bacteria Hyaline Casts Urine Mucus HIV 1&2 Antibody Screen Negative HIV P24 Antigen Negative 06/11/18 06/11/18 06/11/18 11:03 12:30 16:23 WBC RBC Hgb Hct MCV MCH MCHC RDW Plt Count MPV Sodium Potassium Chloride Carbon Dioxide Anion Gap BUN Creatinine Creat Clearance w eGFR POC Glucometer 458 147 Random Glucose Calcium Total Bilirubin AST ALT Alkaline Phosphatase Total Protein Albumin Urine Color Ltyellow Urine Appearance Clear Urine pH 5.0 D Ur Specific [place] 1.024 Urine Protein 1+ H Urine Glucose (UA) 3+ H Urine Ketones Negative Urine Blood Negative Urine Nitrite Negative Urine Bilirubin Negative Urine Urobilinogen Negative Ur Leukocyte Esterase Negative Urine WBC (Auto) 2 Urine RBC (Auto) <1 Ur Epithelial Cells Rare Urine Bacteria Rare Hyaline Casts 1 Urine Mucus Rare HIV 1&2 Antibody Screen HIV P24 Antigen 06/11/18 06/12/18 06/12/18 20:52 05:26 11:06 WBC RBC Hgb Hct MCV MCH MCHC RDW Plt Count MPV Sodium Potassium Chloride Carbon Dioxide Anion Gap BUN Creatinine Creat Clearance w eGFR POC Glucometer 443 430 305 Random Glucose Calcium Total Bilirubin AST ALT Alkaline Phosphatase Total Protein Albumin Urine Color Urine Appearance Urine pH Ur Specific [place] Urine Protein Urine Glucose (UA) Urine Ketones Urine Blood Urine Nitrite Urine Bilirubin Urine Urobilinogen Ur Leukocyte Esterase Urine WBC (Auto) Urine RBC (Auto) Ur Epithelial Cells Urine Bacteria Hyaline Casts Urine Mucus HIV 1&2 Antibody Screen HIV P24 Antigen Assessment: 06/12/18 12:09 WITHDRAWAL SX Plan: CONTINUE DETOX
[2018-06-12] MEDS: THIAMINE HCL 100 MG TABLET (FP) PO SCH (22:15)
[2018-06-12] MEDS: ATORVASTATIN CA 40 MG TABLET (FP) PO SCH (22:16)
[2018-06-12] MEDS: MIRTAZAPINE 15 MG TABLET (FP) PO SCH (22:16)
[2018-06-12] MEDS: chlordiazePOXIDE 5 MG CAPSULE PO SCH (22:16)
[2018-06-12] MEDS: INSULIN (LEVEMIR) 100 UNITS/ML UNITS SQ SCH (22:20)
[2018-06-13] MEDS: chlordiazePOXIDE 5 MG CAPSULE PO SCH ×3 (05:58→17:41)
[2018-06-13] MEDS: GABAPENTIN 300 MG CAPSULE (FP) PO SCH ×2 (05:58→14:53)
[2018-06-13] MEDS: metFORMIN HCL 500 MG TABLET (FP) PO SCH ×2 (06:58→17:48)
[2018-06-13] MEDS: INSULIN (NOVOLOG) ASPART 100 UNITS/ML 10ML VIAL SQ SCH ×3 (06:58→17:45)
[2018-06-13] MEDS: FLUoxetine HCL 20 MG CAPSULE (FP) PO SCH (10:29)
[2018-06-13] MEDS: PRENATAL VITAMINS W/ FOLIC ACID TABLET (FP) PO SCH (10:29)
[2018-06-13] MEDS: LISINOPRIL 20 MG TABLET (FP) PO SCH (10:30)
[2018-06-13] MEDS: ASPIRIN 81 MG CHEWABLE TABLETS PO SCH (10:30)
[2018-06-13] MEDS: NICOTINE 21 MG/24 HOURS TOPICAL PATCH TD SCH (10:30)
--- NOTE | 2018-06-13 13:17 | PN ---
B[facility] Progress Note (SOAP) Subjective: SLIGHT TREMORS,ANXIETY, FATIGUE. OOB WITH STEADY GAIT. Objective: 06/13/18 13:16 Vital Signs 06/13/18 06/13/18 06:21 09:40 Temperature 98.4 F 97.2 F L Pulse Rate 73 79 Respiratory 18 20 Rate Blood Pressure 115/63 105/63 Laboratory Tests 06/11/18 06/11/18 06/11/18 10:30 10:30 10:30 WBC 4.9 RBC 4.65 Hgb 12.9 Hct 39.2 MCV 84.3 MCH 27.6 MCHC 32.8 RDW 13.3 Plt Count 181 MPV 11.1 Sodium 136 Potassium 5.0 Chloride 99 Carbon Dioxide 28 Anion Gap 9 BUN 25 H Creatinine 1.3 Creat Clearance w eGFR 56.70 POC Glucometer Random Glucose 440 H* D Calcium 9.2 Total Bilirubin 0.2 AST 27 D ALT 27 D Alkaline Phosphatase 92 Total Protein 6.6 Albumin 3.4 Urine Color Urine Appearance Urine pH Ur Specific [place] Urine Protein Urine Glucose (UA) Urine Ketones Urine Blood Urine Nitrite Urine Bilirubin Urine Urobilinogen Ur Leukocyte Esterase Urine WBC (Auto) Urine RBC (Auto) Ur Epithelial Cells Urine Bacteria Hyaline Casts Urine Mucus RPR Titer Nonreactive HIV 1&2 Antibody Screen HIV P24 Antigen 06/11/18 06/11/18 06/11/18 10:30 11:03 12:30 WBC RBC Hgb Hct MCV MCH MCHC RDW Plt Count MPV Sodium Potassium Chloride Carbon Dioxide Anion Gap BUN Creatinine Creat Clearance w eGFR POC Glucometer 458 Random Glucose Calcium Total Bilirubin AST ALT Alkaline Phosphatase Total Protein Albumin Urine Color Ltyellow Urine Appearance Clear Urine pH 5.0 D Ur Specific [place] 1.024 Urine Protein 1+ H Urine Glucose (UA) 3+ H Urine Ketones Negative Urine Blood Negative Urine Nitrite Negative Urine Bilirubin Negative Urine Urobilinogen Negative Ur Leukocyte Esterase Negative Urine WBC (Auto) 2 Urine RBC (Auto) <1 Ur Epithelial Cells Rare Urine Bacteria Rare Hyaline Casts 1 Urine Mucus Rare RPR Titer HIV 1&2 Antibody Screen Negative HIV P24 Antigen Negative 06/11/18 06/11/18 06/12/18 16:23 20:52 05:26 WBC RBC Hgb Hct MCV MCH MCHC RDW Plt Count MPV Sodium Potassium Chloride Carbon Dioxide Anion Gap BUN Creatinine Creat Clearance w eGFR POC Glucometer 147 443 430 Random Glucose Calcium Total Bilirubin AST ALT Alkaline Phosphatase Total Protein Albumin Urine Color Urine Appearance Urine pH Ur Specific [place] Urine Protein Urine Glucose (UA) Urine Ketones Urine Blood Urine Nitrite Urine Bilirubin Urine Urobilinogen Ur Leukocyte Esterase Urine WBC (Auto) Urine RBC (Auto) Ur Epithelial Cells Urine Bacteria Hyaline Casts Urine Mucus RPR Titer HIV 1&2 Antibody Screen HIV P24 Antigen 06/12/18 06/12/18 06/12/18 11:06 16:18 21:07 WBC RBC Hgb Hct MCV MCH MCHC RDW Plt Count MPV Sodium Potassium Chloride Carbon Dioxide Anion Gap BUN Creatinine Creat Clearance w eGFR POC Glucometer 305 257 318 Random Glucose Calcium Total Bilirubin AST ALT Alkaline Phosphatase Total Protein Albumin Urine Color Urine Appearance Urine pH Ur Specific [place] Urine Protein Urine Glucose (UA) Urine Ketones Urine Blood Urine Nitrite Urine Bilirubin Urine Urobilinogen Ur Leukocyte Esterase Urine WBC (Auto) Urine RBC (Auto) Ur Epithelial Cells Urine Bacteria Hyaline Casts Urine Mucus RPR Titer HIV 1&2 Antibody Screen HIV P24 Antigen 06/13/18 06/13/18 06/13/18 05:57 08:37 11:43 WBC RBC Hgb Hct MCV MCH MCHC RDW Plt Count MPV Sodium Potassium Chloride Carbon Dioxide Anion Gap BUN Creatinine Creat Clearance w eGFR POC Glucometer 543 146 443 Random Glucose Calcium Total Bilirubin AST ALT Alkaline Phosphatase Total Protein Albumin Urine Color Urine Appearance Urine pH Ur Specific [place] Urine Protein Urine Glucose (UA) Urine Ketones Urine Blood Urine Nitrite Urine Bilirubin Urine Urobilinogen Ur Leukocyte Esterase Urine WBC (Auto) Urine RBC (Auto) Ur Epithelial Cells Urine Bacteria Hyaline Casts Urine Mucus RPR Titer HIV 1&2 Antibody Screen HIV P24 Antigen Assessment: 06/13/18 13:16 WITHDRAWAL SX Plan: CONTINUE DETOX
[2018-06-13 18:13] VITALS: BP 112/68; PULSE 79; TEMP 98.2
--- NOTE | 2018-06-13 18:50 | DS ---
[facility] Summary Admission Date: 06/11/18 Discharge Date: 06/13/18 - History Present History: Alcohol Dependence Additional Comments: Admitted with alcohol withdrawal symptoms. Uncontrolled DM. - Physical Exam Results Vital Signs: Vital Signs Temperature 98.2 F 06/13/18 18:00 Pulse Rate 79 06/13/18 18:00 Respiratory Rate 20 06/13/18 18:00 Blood Pressure 112/68 06/13/18 18:00 O2 Sat by Pulse Oximetry (%) Pertinent Admission Physical Exam Findings: Alcohol withdrawal and uncontrolled DM. Laboratory Tests 06/11/18 06/11/18 06/11/18 10:30 10:30 10:30 WBC 4.9 RBC 4.65 Hgb 12.9 Hct 39.2 MCV 84.3 MCH 27.6 MCHC 32.8 RDW 13.3 Plt Count 181 MPV 11.1 Sodium 136 Potassium 5.0 Chloride 99 Carbon Dioxide 28 Anion Gap 9 BUN 25 H Creatinine 1.3 Creat Clearance w eGFR 56.70 POC Glucometer Random Glucose 440 H* D Calcium 9.2 Total Bilirubin 0.2 AST 27 D ALT 27 D Alkaline Phosphatase 92 Total Protein 6.6 Albumin 3.4 Urine Color Urine Appearance Urine pH Ur Specific Rippey Urine Protein Urine Glucose (UA) Urine Ketones Urine Blood Urine Nitrite Urine Bilirubin Urine Urobilinogen Ur Leukocyte Esterase Urine WBC (Auto) Urine RBC (Auto) Ur Epithelial Cells Urine Bacteria Hyaline Casts Urine Mucus RPR Titer Nonreactive HIV 1&2 Antibody Screen HIV P24 Antigen 06/11/18 06/11/18 06/11/18 10:30 11:03 12:30 WBC RBC Hgb Hct MCV MCH MCHC RDW Plt Count MPV Sodium Potassium Chloride Carbon Dioxide Anion Gap BUN Creatinine Creat Clearance w eGFR POC Glucometer 458 Random Glucose Calcium Total Bilirubin AST ALT Alkaline Phosphatase Total Protein Albumin Urine Color Ltyellow Urine Appearance Clear Urine pH 5.0 D Ur Specific Rippey 1.024 Urine Protein 1+ H Urine Glucose (UA) 3+ H Urine Ketones Negative Urine Blood Negative Urine Nitrite Negative Urine Bilirubin Negative Urine Urobilinogen Negative Ur Leukocyte Esterase Negative Urine WBC (Auto) 2 Urine RBC (Auto) <1 Ur Epithelial Cells Rare Urine Bacteria Rare Hyaline Casts 1 Urine Mucus Rare RPR Titer HIV 1&2 Antibody Screen Negative HIV P24 Antigen Negative 06/11/18 06/11/18 06/12/18 16:23 20:52 05:26 WBC RBC Hgb Hct MCV MCH MCHC RDW Plt Count MPV Sodium Potassium Chloride Carbon Dioxide Anion Gap BUN Creatinine Creat Clearance w eGFR POC Glucometer 147 443 430 Random Glucose Calcium Total Bilirubin AST ALT Alkaline Phosphatase Total Protein Albumin Urine Color Urine Appearance Urine pH Ur Specific Rippey Urine Protein Urine Glucose (UA) Urine Ketones Urine Blood Urine Nitrite Urine Bilirubin Urine Urobilinogen Ur Leukocyte Esterase Urine WBC (Auto) Urine RBC (Auto) Ur Epithelial Cells Urine Bacteria Hyaline Casts Urine Mucus RPR Titer HIV 1&2 Antibody Screen HIV P24 Antigen 06/12/18 06/12/18 06/12/18 11:06 16:18 21:07 WBC RBC Hgb Hct MCV MCH MCHC RDW Plt Count MPV Sodium Potassium Chloride Carbon Dioxide Anion Gap BUN Creatinine Creat Clearance w eGFR POC Glucometer 305 257 318 Random Glucose Calcium Total Bilirubin AST ALT Alkaline Phosphatase Total Protein Albumin Urine Color Urine Appearance Urine pH Ur Specific Rippey Urine Protein Urine Glucose (UA) Urine Ketones Urine Blood Urine Nitrite Urine Bilirubin Urine Urobilinogen Ur Leukocyte Esterase Urine WBC (Auto) Urine RBC (Auto) Ur Epithelial Cells Urine Bacteria Hyaline Casts Urine Mucus RPR Titer HIV 1&2 Antibody Screen HIV P24 Antigen 06/13/18 06/13/18 06/13/18 05:57 08:37 11:43 WBC RBC Hgb Hct MCV MCH MCHC RDW Plt Count MPV Sodium Potassium Chloride Carbon Dioxide Anion Gap BUN Creatinine Creat Clearance w eGFR POC Glucometer 543 146 443 Random Glucose Calcium Total Bilirubin AST ALT Alkaline Phosphatase Total Protein Albumin Urine Color Urine Appearance Urine pH Ur Specific Rippey Urine Protein Urine Glucose (UA) Urine Ketones Urine Blood Urine Nitrite Urine Bilirubin Urine Urobilinogen Ur Leukocyte Esterase Urine WBC (Auto) Urine RBC (Auto) Ur Epithelial Cells Urine Bacteria Hyaline Casts Urine Mucus RPR Titer HIV 1&2 Antibody Screen HIV P24 Antigen 06/13/18 16:24 WBC RBC Hgb Hct MCV MCH MCHC RDW Plt Count MPV Sodium Potassium Chloride Carbon Dioxide Anion Gap BUN Creatinine Creat Clearance w eGFR POC Glucometer 274 Random Glucose Calcium Total Bilirubin AST ALT Alkaline Phosphatase Total Protein Albumin Urine Color Urine Appearance Urine pH Ur Specific Rippey Urine Protein Urine Glucose (UA) Urine Ketones Urine Blood Urine Nitrite Urine Bilirubin Urine Urobilinogen Ur Leukocyte Esterase Urine WBC (Auto) Urine RBC (Auto) Ur Epithelial Cells Urine Bacteria Hyaline Casts Urine Mucus RPR Titer HIV 1&2 Antibody Screen HIV P24 Antigen Labs reviewed. - Treatment Hospital Course: Detox Protocol Followed, Detoxed Safely, Responded well, Discharged Condition Good (Alert and oriented x 3. No withdrawal symptoms noted. Gait steady.), Rehab Referral Accepted Patient has Accepted a Rehab Referral to: [facility] - Medication Discharge Medications: Ambulatory Orders Insulin Regular, Human [Humulin R -] 10 units SQ TID 06/11/14 Albuterol Sulfate Inhaler - [Ventolin HFA Inhaler -] 2 puff IH Q4H PRN #1 inhaler 11/20/16 Aspirin [ASA -] 81 mg PO DAILY #30 tab.chew 12/21/16 Mirtazapine [Remeron -] 30 mg PO DAILY #30 tablet 04/29/18 Atorvastatin Ca [Lipitor] 80 mg PO HS 06/11/18 Fluoxetine HCl [Prozac -] 40 mg PO DAILY 06/11/18 Gabapentin [Neurontin -] 600 mg PO TID 06/11/18 Insulin Glargine,Hum.rec.anlog [Lantus Solostar PEN -] 50 units SQ HS 06/11/18 Lisinopril 20 mg PO DAILY 06/11/18 metFORMIN HCL [Glucophage -] 500 mg PO BID 06/11/18 - Diagnosis (1) Alcohol dependence with uncomplicated withdrawal Status: Acute (2) Nicotine dependence Status: Acute Qualifiers: Nicotine product type: cigarettes Substance use status: in withdrawal Qualified Code(s): F17.213 - Nicotine dependence, cigarettes, with withdrawal (3) Asthma Status: Chronic Qualifiers: Asthma severity: unspecified severity Asthma complication type: uncomplicated (4) DM (diabetes mellitus), type 2 Status: Chronic Qualifiers: Diabetes mellitus snf insulin use: with snf use Diabetes mellitus complication status: with neurologic complications Diabetes mellitus complication detail: with polyneuropathy Qualified Code(s): E11.42 - Type 2 diabetes mellitus with diabetic polyneuropathy; Z79.4 - local company intermodal truck driver (current) use of insulin (5) Hyperglycemia Status: Chronic (6) Hypertension Status: Chronic Qualifiers: Hypertension type: essential hypertension Qualified Code(s): I10 - Essential (primary) hypertension - AMA Did Patient Leave Against Medical Advice: No
[2018-06-13] MEDS ORDERED: chlordiazePOXIDE HCL 10 MG CAPSULE PO SCH (23:00)
--- NOTE | 2018-06-16 11:26 | EKG ---
Test Reason : Blood Pressure : / mmHG Vent. Rate : 081 BPM Atrial Rate : 081 BPM P-R Int : 142 ms QRS Dur : 122 ms QT Int : 408 ms P-R-T Axes : 054 077 039 degrees QTc Int : 473 ms NORMAL SINUS RHYTHM RIGHT BUNDLE BRANCH BLOCK ABNORMAL ECG WHEN COMPARED WITH ECG OF 17-DEC-2016 14:40, T WAVE INVERSION NOW EVIDENT IN ANTERIOR LEADS Confirmed by ALEX HAYES, LAUREN ([id number]) on 06/16/2018 11:26:06 AM Referred By: Lisette Augustine Confirmed By:LAURNE JOHNSON MD
== END 2018-06-13 19:30 | disposition other institution (70) | DRG 775 ==
LOC: YASAS 19:22 → Y3N 06-11 02:53
PROC: HZ2ZZZZ Detoxification Services for Substance Abuse Treatment (ICD-10-PCS; principal; 2018-06-11)
DX: F10.230 Alcohol dependence with withdrawal, uncomplicated (principal); F17.210 Nicotine dependence, cigarettes, uncomplicated; F19.24 Other psychoactive substance dependence with psychoactive substance-induced mood disorder; F31.9 Bipolar disorder, unspecified; G47.00 Insomnia, unspecified; I10 Essential (primary) hypertension; E11.42 Type 2 diabetes mellitus with diabetic polyneuropathy; Z79.4 Long term (current) use of insulin; G63 Polyneuropathy in diseases classified elsewhere; E11.65 Type 2 diabetes mellitus with hyperglycemia; Z88.8 Allergy status to other drugs, medicaments and biological substances; J45.909 Unspecified asthma, uncomplicated; Z91.013 Allergy to seafood; E78.00 Pure hypercholesterolemia, unspecified
CPT/HCPCS: 36415; 80053; 81003; 81015; 82962; 85027; 86593; 87389; 90732; 93005; 93010; G0009

== ENCOUNTER 2018-06-13 18:55 | Inpatient (IN) | payer OTHER ==
[2018-06-13] MEDS ORDERED: MENTHOL/PHENOL 1 EACH UD MM PRN (22:47)
[2018-06-13] MEDS ORDERED: MAGNESIUM CITRATE 300 ML BOTTLE PO PRN (22:47)
[2018-06-13] MEDS ORDERED: LOPERAMIDE HCL 2 MG CAPSULE PO PRN (22:47)
[2018-06-13] MEDS ORDERED: ACETAMINOPHEN 325 MG TABLET (FP) PO PRN (22:47)
[2018-06-13] MEDS ORDERED: guaiFENesin/D-METHORPHAN HB 10 ML UNIT-DOSE CUPS PO PRN (22:47)
[2018-06-13] MEDS ORDERED: P-EPHED 60MG/TRIPROLIDI 2.5MG TABLET PO PRN (22:47)
[2018-06-13] MEDS ORDERED: MAGNESIUM HYDROX 2400MG/30ML ORAL SUSPENSION 30 ML CUP PO PRN (22:47)
[2018-06-13] MEDS ORDERED: hydrOXYzine PAMOATE 50 MG CAPSULE (FP) PO PRN (22:47)
[2018-06-13] MEDS ORDERED: ALBUTEROL SO4 8 GM HFA INHALER IH PRN (22:50)
[2018-06-14] MEDS: metFORMIN HCL 500 MG TABLET (FP) PO SCH ×2 (06:00→16:50)
[2018-06-14] MEDS: INSULIN (NOVOLOG) ASPART 100 UNITS/ML 10ML VIAL SQ SCH ×3 (06:00→16:51)
[2018-06-14] MEDS: PRENATAL VITAMINS W/ FOLIC ACID TABLET (FP) PO SCH (09:43)
[2018-06-14] MEDS: LISINOPRIL 20 MG TABLET (FP) PO SCH (09:43)
[2018-06-14] MEDS: ASPIRIN 81 MG CHEWABLE TABLETS PO SCH (09:43)
[2018-06-14] MEDS: NICOTINE 21 MG/24 HOURS TOPICAL PATCH TD SCH (09:44)
--- NOTE | 2018-06-14 10:45 | PN ---
S Progress Note Note: Vital Signs Temperature 98.8 F 06/14/18 06:53 Pulse Rate 82 06/14/18 06:53 Respiratory Rate 18 06/14/18 06:53 Blood Pressure 98/55 06/14/18 06:53 O2 Sat by Pulse Oximetry (%) Vital Signs Temperature 98.8 F 06/14/18 06:53 Pulse Rate 82 06/14/18 06:53 Respiratory Rate 18 06/14/18 06:53 Blood Pressure 98/55 06/14/18 06:53 O2 Sat by Pulse Oximetry (%) Laboratory Last Values POC Glucometer 337 UNITS (80-120) 06/14/18 05:45 Patient on neurontin 600mg tid for neuropathy, unpsecified last time dose given , will start neurontin 300 mg TID. Continue to monitor.
--- NOTE | 2018-06-14 13:41 | PN ---
[facility] Progress Note Note: Psychiatry Attending's note : Called for renewal of medications. Mr Bond got admitted to [facility] [place]. Patient is already known to me on 3 . Medications : Prozac 20 mg po daily Remeron 15 mg po hs Orders resumed.
[2018-06-14] MEDS: GABAPENTIN 300 MG CAPSULE (FP) PO SCH ×2 (14:25→21:23)
[2018-06-14] MEDS: ATORVASTATIN CA 40 MG TABLET (FP) PO SCH (21:22)
[2018-06-14] MEDS: MELATONIN 5 MG TABLETS PO PRN (21:23)
[2018-06-14] MEDS: THIAMINE HCL 100 MG TABLET (FP) PO SCH (21:23)
[2018-06-14] MEDS: MIRTAZAPINE 15 MG TABLET (FP) PO SCH (21:23)
[2018-06-14] MEDS: INSULIN (LEVEMIR) 100 UNITS/ML UNITS SQ SCH (21:24)
[2018-06-15] MEDS: IBUPROFEN 400 MG TABLET (FP) PO PRN (02:43)
[2018-06-15] MEDS: metFORMIN HCL 500 MG TABLET (FP) PO SCH ×2 (06:52→16:54)
[2018-06-15] MEDS: GABAPENTIN 300 MG CAPSULE (FP) PO SCH ×3 (06:53→21:08)
[2018-06-15] MEDS: INSULIN (NOVOLOG) ASPART 100 UNITS/ML 10ML VIAL SQ SCH ×3 (07:28→16:56)
[2018-06-15] MEDS: PRENATAL VITAMINS W/ FOLIC ACID TABLET (FP) PO SCH (09:41)
[2018-06-15] MEDS: ASPIRIN 81 MG CHEWABLE TABLETS PO SCH (09:41)
[2018-06-15] MEDS: LISINOPRIL 20 MG TABLET (FP) PO SCH (09:41)
[2018-06-15] MEDS: FLUoxetine HCL 20 MG CAPSULE (FP) PO SCH (09:41)
[2018-06-15] MEDS: NICOTINE 21 MG/24 HOURS TOPICAL PATCH TD SCH (09:42)
[2018-06-15] MEDS: ATORVASTATIN CA 40 MG TABLET (FP) PO SCH (21:09)
[2018-06-15] MEDS: THIAMINE HCL 100 MG TABLET (FP) PO SCH (21:09)
[2018-06-15] MEDS: MELATONIN 5 MG TABLETS PO PRN (21:10)
[2018-06-15] MEDS: MIRTAZAPINE 15 MG TABLET (FP) PO SCH (21:10)
[2018-06-15] MEDS: INSULIN (LEVEMIR) 100 UNITS/ML UNITS SQ SCH (21:12)
[2018-06-16] MEDS: metFORMIN HCL 500 MG TABLET (FP) PO SCH ×2 (06:38→16:50)
[2018-06-16] MEDS: GABAPENTIN 300 MG CAPSULE (FP) PO SCH (06:39)
[2018-06-16] MEDS: INSULIN (NOVOLOG) ASPART 100 UNITS/ML 10ML VIAL SQ SCH ×3 (07:57→19:08)
--- NOTE | 2018-06-16 10:53 | HP ---
Psychiatrist Admission - Data Date of interview: 06/16/18 Admission source: [address] [place] [address] Identifying data: This is one of the multiple admissions to inpatient rehabilitation for this 57 years ols single AA childless ,resides with roommate, supported by [facility]. Medical History: DM,neuropathy,HTN,hyperlipidemia. Psychiatric History: patient reports first contact with psychiatrist in 1984 .he reports a few psychiatric hospitalizations to address mood instability, depression,anxiety,drinking,drug use.He waqs dx with Bipolar disorder.patient reports a few suiciidal attemptes(cutting his wrists,tried jump off the bridge, run in front the traffic).His most recent psychiatric hospitalization was to [facility] in April 08, 2018.Patient was d/c to [facility].current medications: Prozac 40 mg po daily and Remeron 15 mg po hs.Neurontin 600 mg po tid from his PCP. Physical/Sexual Abuse/Trauma History: not willing to discuss. Vital Signs: Vital Signs - 24 hr 06/16/18 06/16/18 06/16/18 00:30 03:30 07:11 Temperature 97.7 F Pulse Rate 80 Respiratory 18 18 20 Rate Blood Pressure 123/69 Allergies/Adverse Reactions: Allergies Allergy/AdvReac Type Severity Reaction Status Date / Time Fish Containing Products Allergy Severe Nausea Verified 06/11/18 03:08 haloperidol [From Haldol] Allergy Severe Hives Verified 06/11/18 03:08 haloperidol lactate Allergy Severe Hives Verified 06/11/18 03:08 [From Haldol] Date of last physical exam: 06/11/18 Concur with the findings of this exam: Yes - Substance Abuse/Tx History Hx Alcohol Use: Yes (drinking since 13 yo,beer,vodka) Hx Substance Use: Yes (cocaine/crack since 21 yo) Substance Use Type: Alcohol, Cocaine Hx Substance Use Treatment: Yes (comleted this program last year) Mental Status Exam - Mental Status Exam Alert and Oriented to: Time, Place, Person Cognitive Function: Grossly Intact Patient Appearance: Well Groomed Mood: Sad, Irritable Affect: Mood Congruent Patient Behavior: Cooperative Speech Pattern: Clear Voice Loudness: Normal Thought Process: Goal Oriented Thought Disorder: Not Present Hallucinations: Denies Suicidal Ideation: Denies Homicidal Ideation: Denies Insight/Judgement: Fair Sleep: Fair Appetite: Good Muscle strength/Tone: Normal Gait/Station: Normal Psychiatric Findings - Problem List (Boelus 1, 2,3) (1) Asthma Current Visit: Yes Status: Chronic Qualifiers: Asthma severity: unspecified severity Asthma persistence: unspecified (2) DM (diabetes mellitus), type 2 Current Visit: Yes Status: Chronic Qualifiers: Diabetes mellitus halfway insulin use: with intermediate card tender use Diabetes mellitus complication status: with neurologic complications Diabetes mellitus complication detail: with unspecified neuropathy Qualified Code(s): E11.40 - Type 2 diabetes mellitus with diabetic neuropathy, unspecified; Z79.4 - custodial (current) use of insulin (3) Hyperglycemia Current Visit: Yes Status: Chronic (4) Bipolar disorder, current episode mixed Current Visit: Yes Status: Acute (5) Nicotine dependence Current Visit: Yes Status: Chronic Qualifiers: Nicotine product type: cigarettes Substance use status: in withdrawal Qualified Code(s): F17.213 - Nicotine dependence, cigarettes, with withdrawal - Initial Treatment Plan Initial Treatment Plan: Prozac 40 mg po daily,Remeron 15 mg po hs.
[2018-06-16] MEDS: NICOTINE 21 MG/24 HOURS TOPICAL PATCH TD SCH (11:18)
[2018-06-16] MEDS: ASPIRIN 81 MG CHEWABLE TABLETS PO SCH (11:18)
[2018-06-16] MEDS: FLUoxetine HCL 20 MG CAPSULE (FP) PO SCH ×2 (11:19→12:06)
[2018-06-16] MEDS: LISINOPRIL 20 MG TABLET (FP) PO SCH (11:19)
[2018-06-16] MEDS: PRENATAL VITAMINS W/ FOLIC ACID TABLET (FP) PO SCH (11:19)
--- NOTE | 2018-06-16 13:13 | PN ---
S Progress Note Note: Vital Signs Temperature 97.7 F 06/16/18 07:11 Pulse Rate 83 06/16/18 10:00 Respiratory Rate 20 06/16/18 07:11 Blood Pressure 142/76 06/16/18 10:00 O2 Sat by Pulse Oximetry (%) Laboratory Last Values POC Glucometer 250 UNITS (80-120) 06/16/18 11:21 Patient c/o increase b/l lower extremity neuropathy pain. Outpatient reports was on neurontin 600 mg TID. Last rx picked up was on 04/29/18. Patient Aox3 no distress no adventitious breath sounds full ROM ambulating with cane, + pain on both lower extremities - neuropathy Plan: increase neurontin to 400mg TID , ibuprofen PRN ambulate increase PO fluids continue to monitor
[2018-06-16] MEDS: GABAPENTIN 400 MG CAPSULE (FP) PO SCH ×2 (14:36→22:06)
[2018-06-16] MEDS: INSULIN (LEVEMIR) 100 UNITS/ML UNITS SQ SCH (22:06)
[2018-06-16] MEDS: ATORVASTATIN CA 40 MG TABLET (FP) PO SCH (22:06)
[2018-06-16] MEDS: MIRTAZAPINE 15 MG TABLET (FP) PO SCH (22:06)
[2018-06-16] MEDS: THIAMINE HCL 100 MG TABLET (FP) PO SCH (22:06)
[2018-06-16] MEDS: IBUPROFEN 400 MG TABLET (FP) PO PRN (22:11)
[2018-06-17] MEDS: GABAPENTIN 400 MG CAPSULE (FP) PO SCH ×3 (06:25→21:11)
[2018-06-17] MEDS: metFORMIN HCL 500 MG TABLET (FP) PO SCH ×2 (06:27→17:05)
[2018-06-17] MEDS: INSULIN (NOVOLOG) ASPART 100 UNITS/ML 10ML VIAL SQ SCH ×3 (07:23→17:06)
[2018-06-17] MEDS: ASPIRIN 81 MG CHEWABLE TABLETS PO SCH (09:58)
[2018-06-17] MEDS: NICOTINE 21 MG/24 HOURS TOPICAL PATCH TD SCH (09:58)
[2018-06-17] MEDS: FLUoxetine HCL 20 MG CAPSULE (FP) PO SCH (09:58)
[2018-06-17] MEDS: PRENATAL VITAMINS W/ FOLIC ACID TABLET (FP) PO SCH (09:59)
[2018-06-17] MEDS: LISINOPRIL 20 MG TABLET (FP) PO SCH (10:00)
[2018-06-17] MEDS: INSULIN (LEVEMIR) 100 UNITS/ML UNITS SQ SCH (21:09)
[2018-06-17] MEDS: MIRTAZAPINE 15 MG TABLET (FP) PO SCH (21:11)
[2018-06-17] MEDS: ATORVASTATIN CA 40 MG TABLET (FP) PO SCH (21:11)
[2018-06-17] MEDS: THIAMINE HCL 100 MG TABLET (FP) PO SCH (21:11)
[2018-06-18] MEDS: GABAPENTIN 400 MG CAPSULE (FP) PO SCH ×3 (06:30→21:10)
[2018-06-18] MEDS: metFORMIN HCL 500 MG TABLET (FP) PO SCH ×2 (06:31→17:22)
[2018-06-18] MEDS: INSULIN (NOVOLOG) ASPART 100 UNITS/ML 10ML VIAL SQ SCH ×3 (07:41→17:23)
[2018-06-18] MEDS: FLUoxetine HCL 20 MG CAPSULE (FP) PO SCH (09:44)
[2018-06-18] MEDS: NICOTINE 21 MG/24 HOURS TOPICAL PATCH TD SCH (09:44)
[2018-06-18] MEDS: LISINOPRIL 20 MG TABLET (FP) PO SCH (09:44)
[2018-06-18] MEDS: ASPIRIN 81 MG CHEWABLE TABLETS PO SCH (09:44)
[2018-06-18] MEDS: PRENATAL VITAMINS W/ FOLIC ACID TABLET (FP) PO SCH (09:44)
[2018-06-18] MEDS: NICOTINE POLACRILEX 2 MG GUM BUC PRN (09:45)
[2018-06-18] MEDS: ALBUTEROL SO4 0.083% IH SOL 2.5 MG/3 ML VIAL.NEB. NEB PRN (12:30)
[2018-06-18] MEDS: MAG HYDROX/AL HYDROX/SIMETH 30 ML UNIT-DOSE CUP PO PRN (13:04)
[2018-06-18] MEDS ORDERED: CYCLOBENZAPRINE HCL 5 MG TABLET PO PRN (13:29)
--- NOTE | 2018-06-18 13:31 | PN ---
S Progress Note Note: Patient c/o of left mid sternal chest pain, worsen with palpation. Patient reports pain started after he was working out doing pushups yesterday. Denies SOB, new onset of paresthesia or vertigo. Vital Signs Temperature 98.8 F 06/18/18 12:08 Pulse Rate 85 06/18/18 12:08 Respiratory Rate 20 06/18/18 12:08 Blood Pressure 137/76 06/18/18 12:08 O2 Sat by Pulse Oximetry (%) Laboratory Last Values POC Glucometer 250 UNITS (80-120) 06/18/18 06:30 Patient is Aox3 no distress EENT WNL s1 s2 + murmur, no JVD + mid sternal chest pain with palpation no adventitious breath sounds, no labor breathing skin intact, no cyanosis, or erythema full ROM, ambulating with cane patient currently ASA 81 mg QD EKG NSR RBB 85 BPM, QTC 402 /478 v/s WNL Symptom improvement after taken PO mylanta and NEB tx Chest is not cardiac in nature but musculoskeletal Costochondritis Plan; felxeril PRN ibuprofen PRN increase PO fluids continue to monitor
--- NOTE | 2018-06-18 13:51 | EKG ---
Test Reason : Blood Pressure : / mmHG Vent. Rate : 085 BPM Atrial Rate : 085 BPM P-R Int : 122 ms QRS Dur : 126 ms QT Int : 402 ms P-R-T Axes : 043 073 023 degrees QTc Int : 478 ms NORMAL SINUS RHYTHM RIGHT BUNDLE BRANCH BLOCK ABNORMAL ECG WHEN COMPARED WITH ECG OF 11-JUN-2018 01:55, NO SIGNIFICANT CHANGE WAS FOUND Confirmed by SUZY DEVINE MD ([id number]) on 06/18/2018 1:50:48 PM Referred By: CORDELL MARCH Confirmed By:SUZY DEVINE MD
[2018-06-18] MEDS ORDERED: INSULIN (NOVOLOG) ASPART 100 UNITS/ML 10ML VIAL ONE (16:40)
[2018-06-18] MEDS: THIAMINE HCL 100 MG TABLET (FP) PO SCH (21:10)
[2018-06-18] MEDS: MIRTAZAPINE 15 MG TABLET (FP) PO SCH (21:10)
[2018-06-18] MEDS: ATORVASTATIN CA 40 MG TABLET (FP) PO SCH (21:10)
[2018-06-18] MEDS: INSULIN (LEVEMIR) 100 UNITS/ML UNITS SQ SCH (21:11)
[2018-06-18] MEDS: MELATONIN 5 MG TABLETS PO PRN (21:13)
[2018-06-19] MEDS: IBUPROFEN 400 MG TABLET (FP) PO PRN (07:19)
[2018-06-19] MEDS: metFORMIN HCL 500 MG TABLET (FP) PO SCH ×2 (07:28→17:09)
[2018-06-19] MEDS: GABAPENTIN 400 MG CAPSULE (FP) PO SCH ×3 (07:29→21:09)
[2018-06-19] MEDS: INSULIN (NOVOLOG) ASPART 100 UNITS/ML 10ML VIAL SQ SCH ×3 (07:34→17:09)
[2018-06-19] MEDS: PRENATAL VITAMINS W/ FOLIC ACID TABLET (FP) PO SCH (09:47)
[2018-06-19] MEDS: NICOTINE 21 MG/24 HOURS TOPICAL PATCH TD SCH (09:48)
[2018-06-19] MEDS: FLUoxetine HCL 20 MG CAPSULE (FP) PO SCH (09:48)
[2018-06-19] MEDS: LISINOPRIL 20 MG TABLET (FP) PO SCH (09:48)
[2018-06-19] MEDS: ASPIRIN 81 MG CHEWABLE TABLETS PO SCH (09:48)
[2018-06-19] MEDS: NICOTINE POLACRILEX 2 MG GUM BUC PRN ×2 (09:49→21:10)
[2018-06-19] MEDS ORDERED: INSULIN (NOVOLOG) ASPART 100 UNITS/ML 10ML VIAL ONE (12:02)
[2018-06-19] MEDS: ATORVASTATIN CA 40 MG TABLET (FP) PO SCH (21:09)
[2018-06-19] MEDS: MIRTAZAPINE 15 MG TABLET (FP) PO SCH (21:09)
[2018-06-19] MEDS: INSULIN (LEVEMIR) 100 UNITS/ML UNITS SQ SCH (21:09)
[2018-06-19] MEDS: THIAMINE HCL 100 MG TABLET (FP) PO SCH (21:09)
[2018-06-20] MEDS: metFORMIN HCL 500 MG TABLET (FP) PO SCH ×2 (06:16→16:49)
[2018-06-20] MEDS: GABAPENTIN 400 MG CAPSULE (FP) PO SCH ×3 (06:16→21:10)
[2018-06-20] MEDS: INSULIN (NOVOLOG) ASPART 100 UNITS/ML 10ML VIAL SQ SCH ×3 (06:18→16:49)
[2018-06-20] MEDS: FLUoxetine HCL 20 MG CAPSULE (FP) PO SCH (09:52)
[2018-06-20] MEDS: NICOTINE 21 MG/24 HOURS TOPICAL PATCH TD SCH (09:52)
[2018-06-20] MEDS: ASPIRIN 81 MG CHEWABLE TABLETS PO SCH (09:52)
[2018-06-20] MEDS: LISINOPRIL 20 MG TABLET (FP) PO SCH (09:52)
[2018-06-20] MEDS: PRENATAL VITAMINS W/ FOLIC ACID TABLET (FP) PO SCH (09:52)
[2018-06-20] MEDS: MAG HYDROX/AL HYDROX/SIMETH 30 ML UNIT-DOSE CUP PO PRN (15:04)
[2018-06-20] MEDS: ATORVASTATIN CA 40 MG TABLET (FP) PO SCH (21:10)
[2018-06-20] MEDS: MELATONIN 5 MG TABLETS PO PRN (21:10)
[2018-06-20] MEDS: INSULIN (LEVEMIR) 100 UNITS/ML UNITS SQ SCH (21:10)
[2018-06-20] MEDS: MIRTAZAPINE 15 MG TABLET (FP) PO SCH (21:10)
[2018-06-20] MEDS: THIAMINE HCL 100 MG TABLET (FP) PO SCH (21:10)
[2018-06-21] MEDS: metFORMIN HCL 500 MG TABLET (FP) PO SCH ×2 (06:11→17:00)
[2018-06-21] MEDS: GABAPENTIN 400 MG CAPSULE (FP) PO SCH ×3 (06:11→21:10)
[2018-06-21] MEDS: INSULIN (NOVOLOG) ASPART 100 UNITS/ML 10ML VIAL SQ SCH ×3 (08:20→17:01)
[2018-06-21] MEDS: LISINOPRIL 20 MG TABLET (FP) PO SCH (10:05)
[2018-06-21] MEDS: ASPIRIN 81 MG CHEWABLE TABLETS PO SCH (10:05)
[2018-06-21] MEDS: FLUoxetine HCL 20 MG CAPSULE (FP) PO SCH (10:06)
[2018-06-21] MEDS: PRENATAL VITAMINS W/ FOLIC ACID TABLET (FP) PO SCH (10:06)
[2018-06-21] MEDS: NICOTINE 21 MG/24 HOURS TOPICAL PATCH TD SCH (10:06)
[2018-06-21] MEDS: ALBUTEROL SO4 0.083% IH SOL 2.5 MG/3 ML VIAL.NEB. NEB PRN (10:07)
[2018-06-21] MEDS: MAG HYDROX/AL HYDROX/SIMETH 30 ML UNIT-DOSE CUP PO PRN (12:20)
[2018-06-21] MEDS ORDERED: INSULIN (NOVOLOG) ASPART 100 UNITS/ML 10ML VIAL ONE ×2 (12:26→21:56)
[2018-06-21] MEDS: IBUPROFEN 400 MG TABLET (FP) PO PRN (17:02)
--- NOTE | 2018-06-21 17:52 | PN ---
S Progress Note (SOAP) Subjective: pt reports he hit his head on a shelf above after putting sneakers on . reports headache . also nausea after taking a.m. meds . Objective: 06/21/18 17:51 small abrasion on scalp no deformity . aao x 3 , no distress , neuro intact Assessment: 06/21/18 17:51 head contusion / abrasion Plan: neurochecks q 2 hrs x 24 hrs wound care - topical tx sliding scale added for coverage
[2018-06-21] MEDS: INSULIN SLIDING SCALE (NOVOLOG) 1 VIAL SQ SCH ×2 (19:13→21:10)
[2018-06-21] MEDS: INSULIN (LEVEMIR) 100 UNITS/ML UNITS SQ SCH (21:09)
[2018-06-21] MEDS: THIAMINE HCL 100 MG TABLET (FP) PO SCH (21:10)
[2018-06-21] MEDS: ATORVASTATIN CA 40 MG TABLET (FP) PO SCH (21:10)
[2018-06-21] MEDS: MIRTAZAPINE 15 MG TABLET (FP) PO SCH (21:10)
[2018-06-21] MEDS: BACITRACIN 0.9 GM PACKET TP SCH (21:11)
[2018-06-21] MEDS: MELATONIN 5 MG TABLETS PO PRN (21:12)
[2018-06-22] MEDS: metFORMIN HCL 500 MG TABLET (FP) PO SCH ×2 (06:40→16:37)
[2018-06-22] MEDS: GABAPENTIN 400 MG CAPSULE (FP) PO SCH ×3 (06:40→21:11)
[2018-06-22] MEDS ORDERED: INSULIN (NOVOLOG) ASPART 100 UNITS/ML 10ML VIAL ONE ×2 (07:14→12:04)
[2018-06-22] MEDS: INSULIN (NOVOLOG) ASPART 100 UNITS/ML 10ML VIAL SQ SCH ×3 (07:15→16:37)
[2018-06-22] MEDS: INSULIN SLIDING SCALE (NOVOLOG) 1 VIAL SQ SCH ×4 (07:16→21:12)
[2018-06-22] MEDS: BACITRACIN 0.9 GM PACKET TP SCH ×2 (09:48→21:11)
[2018-06-22] MEDS: PRENATAL VITAMINS W/ FOLIC ACID TABLET (FP) PO SCH (09:48)
[2018-06-22] MEDS: ASPIRIN 81 MG CHEWABLE TABLETS PO SCH (09:48)
[2018-06-22] MEDS: NICOTINE 21 MG/24 HOURS TOPICAL PATCH TD SCH (09:49)
[2018-06-22] MEDS: FLUoxetine HCL 20 MG CAPSULE (FP) PO SCH (09:49)
[2018-06-22] MEDS: LISINOPRIL 20 MG TABLET (FP) PO SCH (09:49)
[2018-06-22] MEDS: MIRTAZAPINE 15 MG TABLET (FP) PO SCH (21:11)
[2018-06-22] MEDS: THIAMINE HCL 100 MG TABLET (FP) PO SCH (21:11)
[2018-06-22] MEDS: ATORVASTATIN CA 40 MG TABLET (FP) PO SCH (21:11)
[2018-06-22] MEDS: MELATONIN 5 MG TABLETS PO PRN (21:11)
[2018-06-22] MEDS: INSULIN (LEVEMIR) 100 UNITS/ML UNITS SQ SCH (21:12)
[2018-06-23] MEDS: GABAPENTIN 400 MG CAPSULE (FP) PO SCH ×3 (06:51→21:23)
[2018-06-23] MEDS: metFORMIN HCL 500 MG TABLET (FP) PO SCH ×2 (06:51→16:55)
[2018-06-23] MEDS ORDERED: INSULIN (NOVOLOG) ASPART 100 UNITS/ML 10ML VIAL ONE ×2 (07:25→22:22)
[2018-06-23] MEDS: INSULIN (NOVOLOG) ASPART 100 UNITS/ML 10ML VIAL SQ SCH ×3 (07:26→16:57)
[2018-06-23] MEDS: INSULIN SLIDING SCALE (NOVOLOG) 1 VIAL SQ SCH ×4 (07:27→21:27)
[2018-06-23] MEDS: FLUoxetine HCL 20 MG CAPSULE (FP) PO SCH (10:08)
[2018-06-23] MEDS: NICOTINE 21 MG/24 HOURS TOPICAL PATCH TD SCH (10:08)
[2018-06-23] MEDS: ASPIRIN 81 MG CHEWABLE TABLETS PO SCH (10:08)
[2018-06-23] MEDS: LISINOPRIL 20 MG TABLET (FP) PO SCH (10:08)
[2018-06-23] MEDS: BACITRACIN 0.9 GM PACKET TP SCH ×2 (10:08→21:26)
[2018-06-23] MEDS: PRENATAL VITAMINS W/ FOLIC ACID TABLET (FP) PO SCH (10:09)
[2018-06-23] MEDS: MIRTAZAPINE 15 MG TABLET (FP) PO SCH (21:23)
[2018-06-23] MEDS: THIAMINE HCL 100 MG TABLET (FP) PO SCH (21:24)
[2018-06-23] MEDS: ATORVASTATIN CA 40 MG TABLET (FP) PO SCH (21:24)
[2018-06-23] MEDS: INSULIN (LEVEMIR) 100 UNITS/ML UNITS SQ SCH (21:25)
[2018-06-23] MEDS: MELATONIN 5 MG TABLETS PO PRN (21:25)
[2018-06-24] MEDS: GABAPENTIN 400 MG CAPSULE (FP) PO SCH ×3 (06:13→23:47)
[2018-06-24] MEDS: metFORMIN HCL 500 MG TABLET (FP) PO SCH ×2 (06:14→17:51)
[2018-06-24] MEDS: INSULIN (NOVOLOG) ASPART 100 UNITS/ML 10ML VIAL SQ SCH ×3 (07:40→17:51)
[2018-06-24] MEDS: INSULIN SLIDING SCALE (NOVOLOG) 1 VIAL SQ SCH ×4 (07:41→23:48)
[2018-06-24] MEDS: BACITRACIN 0.9 GM PACKET TP SCH ×2 (09:50→23:47)
[2018-06-24] MEDS: ASPIRIN 81 MG CHEWABLE TABLETS PO SCH (09:50)
[2018-06-24] MEDS: LISINOPRIL 20 MG TABLET (FP) PO SCH (09:50)
[2018-06-24] MEDS: FLUoxetine HCL 20 MG CAPSULE (FP) PO SCH (09:50)
[2018-06-24] MEDS: PRENATAL VITAMINS W/ FOLIC ACID TABLET (FP) PO SCH (09:50)
[2018-06-24] MEDS: NICOTINE 21 MG/24 HOURS TOPICAL PATCH TD SCH (09:51)
[2018-06-24] MEDS: ATORVASTATIN CA 40 MG TABLET (FP) PO SCH (23:47)
[2018-06-24] MEDS: INSULIN (LEVEMIR) 100 UNITS/ML UNITS SQ SCH (23:47)
[2018-06-24] MEDS: THIAMINE HCL 100 MG TABLET (FP) PO SCH (23:48)
[2018-06-24] MEDS: MIRTAZAPINE 15 MG TABLET (FP) PO SCH (23:48)
[2018-06-25] MEDS: metFORMIN HCL 500 MG TABLET (FP) PO SCH ×2 (06:24→16:40)
[2018-06-25] MEDS: GABAPENTIN 400 MG CAPSULE (FP) PO SCH ×3 (06:24→21:09)
[2018-06-25] MEDS: INSULIN (NOVOLOG) ASPART 100 UNITS/ML 10ML VIAL SQ SCH ×3 (07:17→16:40)
[2018-06-25] MEDS: INSULIN SLIDING SCALE (NOVOLOG) 1 VIAL SQ SCH ×4 (07:18→21:11)
[2018-06-25] MEDS: FLUoxetine HCL 20 MG CAPSULE (FP) PO SCH (09:41)
[2018-06-25] MEDS: PRENATAL VITAMINS W/ FOLIC ACID TABLET (FP) PO SCH (09:41)
[2018-06-25] MEDS: NICOTINE 21 MG/24 HOURS TOPICAL PATCH TD SCH (09:41)
[2018-06-25] MEDS: LISINOPRIL 20 MG TABLET (FP) PO SCH (09:41)
[2018-06-25] MEDS: ASPIRIN 81 MG CHEWABLE TABLETS PO SCH (09:41)
[2018-06-25] MEDS ORDERED: INSULIN (NOVOLOG) ASPART 100 UNITS/ML 10ML VIAL ONE ×2 (12:15→21:54)
[2018-06-25] MEDS: IBUPROFEN 400 MG TABLET (FP) PO PRN (14:31)
[2018-06-25] MEDS: ATORVASTATIN CA 40 MG TABLET (FP) PO SCH (21:09)
[2018-06-25] MEDS: MIRTAZAPINE 15 MG TABLET (FP) PO SCH (21:09)
[2018-06-25] MEDS: INSULIN (LEVEMIR) 100 UNITS/ML UNITS SQ SCH (21:10)
[2018-06-25] MEDS: MELATONIN 5 MG TABLETS PO PRN (21:10)
[2018-06-25] MEDS: THIAMINE HCL 100 MG TABLET (FP) PO SCH (21:10)
[2018-06-26] MEDS: GABAPENTIN 400 MG CAPSULE (FP) PO SCH ×3 (06:08→21:09)
[2018-06-26] MEDS: metFORMIN HCL 500 MG TABLET (FP) PO SCH ×2 (06:08→17:40)
[2018-06-26] MEDS ORDERED: INSULIN (NOVOLOG) ASPART 100 UNITS/ML 10ML VIAL ONE ×2 (07:37→22:07)
[2018-06-26] MEDS: INSULIN (NOVOLOG) ASPART 100 UNITS/ML 10ML VIAL SQ SCH ×3 (07:40→17:40)
[2018-06-26] MEDS: INSULIN SLIDING SCALE (NOVOLOG) 1 VIAL SQ SCH ×4 (07:40→21:12)
[2018-06-26] MEDS: NICOTINE 21 MG/24 HOURS TOPICAL PATCH TD SCH (09:50)
[2018-06-26] MEDS: FLUoxetine HCL 20 MG CAPSULE (FP) PO SCH (09:51)
[2018-06-26] MEDS: LISINOPRIL 20 MG TABLET (FP) PO SCH (09:51)
[2018-06-26] MEDS: ASPIRIN 81 MG CHEWABLE TABLETS PO SCH (09:51)
[2018-06-26] MEDS: PRENATAL VITAMINS W/ FOLIC ACID TABLET (FP) PO SCH (09:51)
[2018-06-26] MEDS: THIAMINE HCL 100 MG TABLET (FP) PO SCH (21:09)
[2018-06-26] MEDS: MIRTAZAPINE 15 MG TABLET (FP) PO SCH (21:09)
[2018-06-26] MEDS: ATORVASTATIN CA 40 MG TABLET (FP) PO SCH (21:09)
[2018-06-26] MEDS: INSULIN (LEVEMIR) 100 UNITS/ML UNITS SQ SCH (21:10)
[2018-06-27] MEDS: GABAPENTIN 400 MG CAPSULE (FP) PO SCH ×3 (06:29→21:07)
[2018-06-27] MEDS: metFORMIN HCL 500 MG TABLET (FP) PO SCH ×2 (06:29→17:43)
[2018-06-27] MEDS ORDERED: INSULIN (NOVOLOG) ASPART 100 UNITS/ML 10ML VIAL ONE ×4 (07:25→21:06)
[2018-06-27] MEDS: INSULIN (NOVOLOG) ASPART 100 UNITS/ML 10ML VIAL SQ SCH ×3 (07:26→17:45)
[2018-06-27] MEDS: INSULIN SLIDING SCALE (NOVOLOG) 1 VIAL SQ SCH ×4 (07:27→21:07)
[2018-06-27] MEDS: LISINOPRIL 20 MG TABLET (FP) PO SCH (09:44)
[2018-06-27] MEDS: FLUoxetine HCL 20 MG CAPSULE (FP) PO SCH (09:44)
[2018-06-27] MEDS: PRENATAL VITAMINS W/ FOLIC ACID TABLET (FP) PO SCH (09:44)
[2018-06-27] MEDS: NICOTINE 21 MG/24 HOURS TOPICAL PATCH TD SCH (09:44)
[2018-06-27] MEDS: ASPIRIN 81 MG CHEWABLE TABLETS PO SCH (09:44)
[2018-06-27] MEDS: INSULIN (LEVEMIR) 100 UNITS/ML UNITS SQ SCH (21:06)
[2018-06-27] MEDS: THIAMINE HCL 100 MG TABLET (FP) PO SCH (21:07)
[2018-06-27] MEDS: MIRTAZAPINE 15 MG TABLET (FP) PO SCH (21:07)
[2018-06-27] MEDS: ATORVASTATIN CA 40 MG TABLET (FP) PO SCH (21:07)
[2018-06-28] MEDS: GABAPENTIN 400 MG CAPSULE (FP) PO SCH ×3 (06:12→21:13)
[2018-06-28] MEDS: metFORMIN HCL 500 MG TABLET (FP) PO SCH ×2 (06:13→17:00)
[2018-06-28] MEDS: INSULIN SLIDING SCALE (NOVOLOG) 1 VIAL SQ SCH ×4 (06:14→21:13)
[2018-06-28] MEDS: INSULIN (NOVOLOG) ASPART 100 UNITS/ML 10ML VIAL SQ SCH ×3 (06:14→17:03)
[2018-06-28] MEDS: ASPIRIN 81 MG CHEWABLE TABLETS PO SCH (09:42)
[2018-06-28] MEDS: FLUoxetine HCL 20 MG CAPSULE (FP) PO SCH (09:42)
[2018-06-28] MEDS: LISINOPRIL 20 MG TABLET (FP) PO SCH (09:42)
[2018-06-28] MEDS: NICOTINE 21 MG/24 HOURS TOPICAL PATCH TD SCH (09:43)
[2018-06-28] MEDS: PRENATAL VITAMINS W/ FOLIC ACID TABLET (FP) PO SCH (09:43)
[2018-06-28] MEDS ORDERED: INSULIN (NOVOLOG) ASPART 100 UNITS/ML 10ML VIAL ONE (12:14)
[2018-06-28] MEDS: MIRTAZAPINE 15 MG TABLET (FP) PO SCH (21:13)
[2018-06-28] MEDS: ATORVASTATIN CA 40 MG TABLET (FP) PO SCH (21:14)
[2018-06-28] MEDS: THIAMINE HCL 100 MG TABLET (FP) PO SCH (21:14)
[2018-06-28] MEDS: ONDANSETRON *ODT* 4 MG TABLET SL PRN (22:26)
[2018-06-28] MEDS ORDERED: INSULIN (LEVEMIR) 100 UNITS/ML UNITS SQ ONE (22:28)
[2018-06-29] MEDS: metFORMIN HCL 500 MG TABLET (FP) PO SCH ×2 (06:31→17:02)
[2018-06-29] MEDS: GABAPENTIN 400 MG CAPSULE (FP) PO SCH ×3 (06:31→21:06)
[2018-06-29] MEDS: ONDANSETRON *ODT* 4 MG TABLET SL PRN (06:33)
[2018-06-29] MEDS: INSULIN SLIDING SCALE (NOVOLOG) 1 VIAL SQ SCH ×4 (07:49→21:09)
[2018-06-29] MEDS: INSULIN (NOVOLOG) ASPART 100 UNITS/ML 10ML VIAL SQ SCH ×3 (07:49→17:02)
[2018-06-29] MEDS: FLUoxetine HCL 20 MG CAPSULE (FP) PO SCH (09:51)
[2018-06-29] MEDS: ASPIRIN 81 MG CHEWABLE TABLETS PO SCH (09:51)
[2018-06-29] MEDS: LISINOPRIL 20 MG TABLET (FP) PO SCH (09:51)
[2018-06-29] MEDS: NICOTINE 21 MG/24 HOURS TOPICAL PATCH TD SCH (09:52)
[2018-06-29] MEDS: PRENATAL VITAMINS W/ FOLIC ACID TABLET (FP) PO SCH (09:52)
[2018-06-29] MEDS ORDERED: INSULIN (LEVEMIR) 100 UNITS/ML UNITS SQ ONE (19:12)
[2018-06-29] MEDS ORDERED: INSULIN (NOVOLOG) ASPART 100 UNITS/ML 10ML VIAL ONE (20:50)
[2018-06-29] MEDS: MIRTAZAPINE 15 MG TABLET (FP) PO SCH (21:06)
[2018-06-29] MEDS: ATORVASTATIN CA 40 MG TABLET (FP) PO SCH (21:06)
[2018-06-29] MEDS: MAG HYDROX/AL HYDROX/SIMETH 30 ML UNIT-DOSE CUP PO PRN (22:45)
[2018-06-29] MEDS: THIAMINE HCL 100 MG TABLET (FP) PO SCH (22:46)
[2018-06-29] MEDS: INSULIN (LEVEMIR) 100 UNITS/ML UNITS SQ SCH (22:47)
[2018-06-30] MEDS: metFORMIN HCL 500 MG TABLET (FP) PO SCH ×2 (06:10→16:56)
[2018-06-30] MEDS: GABAPENTIN 400 MG CAPSULE (FP) PO SCH ×3 (06:10→21:08)
[2018-06-30] MEDS: INSULIN SLIDING SCALE (NOVOLOG) 1 VIAL SQ SCH ×4 (07:27→21:13)
[2018-06-30] MEDS: INSULIN (NOVOLOG) ASPART 100 UNITS/ML 10ML VIAL SQ SCH ×3 (08:11→17:00)
[2018-06-30] MEDS: NICOTINE 21 MG/24 HOURS TOPICAL PATCH TD SCH (10:32)
[2018-06-30] MEDS: FLUoxetine HCL 20 MG CAPSULE (FP) PO SCH (10:32)
[2018-06-30] MEDS: PRENATAL VITAMINS W/ FOLIC ACID TABLET (FP) PO SCH (10:32)
[2018-06-30] MEDS: ASPIRIN 81 MG CHEWABLE TABLETS PO SCH (10:32)
[2018-06-30] MEDS: LISINOPRIL 20 MG TABLET (FP) PO SCH (10:32)
[2018-06-30] MEDS: ONDANSETRON *ODT* 4 MG TABLET SL PRN (10:33)
--- NOTE | 2018-06-30 12:48 | PN ---
S Progress Note Note: INDIGESTION AND NAUSEA/VOMITING. FEELS LIKE FOOD AND MEDICATION NOT GOING DOWN. Laboratory Tests 06/14/18 06/14/18 06/14/18 05:45 11:58 16:50 POC Glucometer 337 510 448 06/14/18 06/15/18 06/15/18 20:21 06:51 11:46 POC Glucometer 318 381 375 06/15/18 06/15/18 06/16/18 16:20 20:22 06:37 POC Glucometer 280 259 248 06/16/18 06/16/18 06/16/18 11:21 16:49 22:05 POC Glucometer 250 256 457 06/17/18 06/17/18 06/17/18 06:27 11:43 17:05 POC Glucometer 323 395 347 06/17/18 06/18/18 06/18/18 21:09 06:30 11:57 POC Glucometer 477 250 425 06/18/18 06/18/18 06/19/18 17:21 20:49 07:21 POC Glucometer 362 419 338 06/19/18 06/19/18 06/19/18 11:59 17:09 20:49 POC Glucometer 306 227 323 06/20/18 06/20/18 06/20/18 06:15 12:01 16:49 POC Glucometer 362 255 183 06/20/18 06/21/18 06/21/18 21:09 06:10 12:22 POC Glucometer 310 256 242 06/21/18 06/21/18 06/21/18 17:00 19:12 21:08 POC Glucometer 104 275 315 06/22/18 06/22/18 06/22/18 06:37 12:03 16:35 POC Glucometer 250 267 172 06/23/18 06/23/18 06/23/18 06:47 12:03 16:53 POC Glucometer 263 256 290 06/23/18 06/24/18 06/24/18 21:22 06:18 16:46 POC Glucometer 262 200 204 06/25/18 06/25/18 06/25/18 06:23 12:04 16:39 POC Glucometer 298 379 228 06/25/18 06/26/18 06/26/18 20:42 06:07 12:10 POC Glucometer 290 360 68 06/26/18 06/26/18 06/27/18 16:57 20:52 06:28 POC Glucometer 258 326 307 06/27/18 06/27/18 06/27/18 12:00 16:49 21:04 POC Glucometer 266 222 244 06/28/18 06/28/18 06/28/18 06:11 12:08 16:56 POC Glucometer 120 266 196 06/28/18 06/29/18 06/29/18 21:11 06:31 11:56 POC Glucometer 171 232 159 06/29/18 06/29/18 06/30/18 16:28 20:40 06:08 POC Glucometer 233 219 171 06/30/18 12:27 POC Glucometer 148 Vital Signs 06/30/18 06:32 Temperature 98.5 F Pulse Rate 83 Respiratory 16 Rate Blood Pressure 134/79 ABDOMEN:SOFT, SLIGHT GENERALIZED DISCOMFORT ON PALPATION ALL QUADRANTS. IMPRESSION;GERD PLAN;ZANTAC 150 MG PO BID
[2018-06-30] MEDS ORDERED: RANITIDINE HCL 150 MG TABLET (FP) PO ONE (13:45)
[2018-06-30] MEDS: MIRTAZAPINE 15 MG TABLET (FP) PO SCH (21:08)
[2018-06-30] MEDS: INSULIN (LEVEMIR) 100 UNITS/ML UNITS SQ SCH (21:08)
[2018-06-30] MEDS: RANITIDINE HCL 150 MG TABLET (FP) PO SCH (21:08)
[2018-06-30] MEDS: THIAMINE HCL 100 MG TABLET (FP) PO SCH (21:08)
[2018-06-30] MEDS: ATORVASTATIN CA 40 MG TABLET (FP) PO SCH (21:09)
[2018-07-01] MEDS: GABAPENTIN 400 MG CAPSULE (FP) PO SCH (06:38)
[2018-07-01] MEDS: metFORMIN HCL 500 MG TABLET (FP) PO SCH (06:38)
[2018-07-01 06:39] VITALS: BP 153/87; PULSE 82; TEMP 97.9
[2018-07-01] MEDS: INSULIN (NOVOLOG) ASPART 100 UNITS/ML 10ML VIAL SQ SCH (06:39)
[2018-07-01] MEDS: INSULIN SLIDING SCALE (NOVOLOG) 1 VIAL SQ SCH (06:40)
--- NOTE | 2018-07-01 08:22 | PN ---
Psychiatric Progress Note Vital Signs: Vital Signs Period Temp Pulse Resp BP Sys/Day Pulse Ox Last 24 Hr 97.9 F 82 16-87 150-153/80-87 Date of Session: 07/01/18 Chief Complaint:: "Discharge" HPI: Patient was admitted to for alcohol dependence. ROS: DM,neuropathy,HTN,hyperlipidemia. Current Medications: Active Medications Generic Name Dose Route Start Last Admin Trade Name Freq PRN Reason Stop Dose Admin Acetaminophen 650 mg 06/13/18 22:47 Tylenol - PO Q4H PRN FEVER Al Hydroxide/Mg Hydroxide 30 ml 06/13/18 22:47 06/29/18 22:45 Mylanta Oral Suspension - PO 30 ml Q6H PRN Administration DYSPEPSIA Albuterol Sulfate 2 puff 06/13/18 22:50 06/18/18 12:14 Ventolin Hfa Inhaler - IH 2 puff Q4H PRN Administration SHORT OF BREATH/WHEEZING Aspirin 81 mg 06/14/18 10:00 06/30/18 10:32 Asa - PO 81 mg DAILY ANASTACIA Administration Atorvastatin Calcium 80 mg 06/14/18 22:00 06/30/18 21:09 Lipitor - PO 80 mg HS ANASTACIA Administration Eucalyptus/Menthol/Phenol/Sorbitol 1 each 06/13/18 22:47 Cepastat Lozenge - MM Q4H PRN SORE THROAT Fluoxetine HCl 40 mg 06/16/18 10:00 06/30/18 10:32 Prozac - PO 40 mg DAILY ANASTACIA Administration Gabapentin 400 mg 06/16/18 13:10 07/01/18 06:38 Neurontin - PO 400 mg TID ANASTACIA Administration Guaifenesin 10 ml 06/13/18 22:47 Robitussin Dm - PO Q6H PRN COUGH Hydroxyzine Pamoate 50 mg 06/13/18 22:47 06/26/18 21:09 Vistaril - PO 50 mg Q4H PRN Administration AGITATION Ibuprofen 400 mg 06/13/18 22:47 06/25/18 14:31 Motrin - PO 400 mg Q6H PRN Administration Pain Level 4-6 Insulin Aspart 10 units 06/14/18 07:00 07/01/18 06:39 Novolog Vial SQ 10 units TIDAC ANASTACIA Administration Insulin Aspart 1 vial 06/21/18 18:15 07/01/18 06:40 Novolog Vial Sliding Scale - SQ 2 units ACHS ANASTACIA Administration Protocol Insulin Detemir 50 units 06/14/18 22:00 06/30/18 21:08 Levemir Vial SQ 50 units HS ANASTACIA Administration Lisinopril 20 mg 06/14/18 10:00 06/30/18 10:32 Prinivil PO 20 mg DAILY ANASTACIA Administration Loperamide HCl 4 mg 06/13/18 22:47 Imodium - PO Q6H PRN DIARRHEA Magnesium Citrate 300 ml 06/13/18 22:47 Citroma - PO Q48H PRN CONSTIPATION Magnesium Hydroxide 30 ml 06/13/18 22:47 Milk Of Magnesia - PO DAILY PRN CONSTIPATION Melatonin 5 mg 06/13/18 22:00 06/25/18 21:10 Melatonin PO 5 mg HS PRN Administration INSOMNIA Metformin HCl 500 mg 06/14/18 07:00 07/01/18 06:38 Glucophage - PO 500 mg BIDAC ANASTACIA Administration Mirtazapine 15 mg 06/14/18 22:00 06/30/18 21:08 Remeron - PO 15 mg HS ANASTACIA Administration Nicotine 21 mg 06/14/18 10:00 06/30/18 10:32 Nicoderm Patch - TD Not Given DAILY [facility] Nicotine Polacrilex 2 mg 06/13/18 22:47 06/19/18 21:10 Nicorette Gum - BUC 2 mg Q2H PRN Administration NICOTINE REPLACEMENT RX Ondansetron HCl 8 mg 06/20/18 15:01 06/30/18 10:33 Zofran Odt - SL 8 mg Q8H PRN Administration n/v Multivit/Folic Acid/Iron 1 tab 06/14/18 10:00 06/30/18 10:32 Vitamins (Sjr) - PO Not Given DAILY [facility] Pseudoephedrine/Triprolidine 1 combo 06/13/18 22:47 Actifed - PO TID PRN NASAL CONGESTION Ranitidine HCl 150 mg 06/30/18 22:00 06/30/18 21:08 Zantac - PO 150 mg BID ANASTACIA Administration Thiamine HCl 100 mg 06/14/18 22:00 06/30/18 21:08 Vitamin B1 - PO 100 mg HS ANASTACIA Administration Medication(s) Change(s): No. Current Side Effect: No Lab tests ordered: No Lab tests reviewed: Yes Provider note:: Patient able to complete the rehabilitation program on 07/01/18. Mr. saravia states he has met his treatment goals. 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 Patient will continue to address additional issues at the [facility] outpatient clinic. Mr. Saravia was prescribed Prozac 40mg + Mirtzapine 15mg. A prescription for those medications was electronically sent to patient's pharmacy at [facility] at [address] [place] [address]. Patient is stable for discharge on 07/01/18. Total face to face time:: 35 Mental Status Exam - Mental Status Exam Alert and Oriented to: Time, Place, Person Cognitive Function: Good Patient Appearance: Well Groomed Mood: Hopeful Affect: Appropriate Patient Behavior: Appropriate, Cooperative Speech Pattern: Clear, Appropriate Voice Loudness: Normal Thought Process: Intact, Goal Oriented Thought Disorder: Not Present Hallucinations: Denies Suicidal Ideation: Denies Homicidal Ideation: Denies Insight/Judgement: Good Sleep: Well Appetite: Good Muscle strength/Tone: Normal Gait/Station: Normal Psychiatric Treatment Plan - Problem List (1) Nicotine dependence Current Visit: Yes Qualifiers: Nicotine product type: cigarettes Substance use status: in withdrawal Qualified Code(s): F17.213 - Nicotine dependence, cigarettes, with withdrawal (2) Bipolar disorder Current Visit: Yes Comment: Self-report. (3) Alcohol dependence Current Visit: Yes
[2018-07-01] MEDS: ASPIRIN 81 MG CHEWABLE TABLETS PO SCH (10:46)
[2018-07-01] MEDS: LISINOPRIL 20 MG TABLET (FP) PO SCH (10:46)
[2018-07-01] MEDS: FLUoxetine HCL 20 MG CAPSULE (FP) PO SCH (10:46)
[2018-07-01] MEDS: NICOTINE 21 MG/24 HOURS TOPICAL PATCH TD SCH (10:47)
[2018-07-01] MEDS: PRENATAL VITAMINS W/ FOLIC ACID TABLET (FP) PO SCH (10:47)
[2018-07-01] MEDS: RANITIDINE HCL 150 MG TABLET (FP) PO SCH (10:49)
--- NOTE | 2018-07-01 15:17 | PN ---
[facility] Progress Note Note: PT IS ALERT O X 3. NAD. SPOKE TO PATIENT RE:MEDICAL MANAGEMENT AND NEED TO FOLLOW UP WITH HIS PCP. PT REPORTS PCP AT [facility] [place], [place], ANNE WISDOM WHO I SPOKE TO TODAY. MS JACOB WANTS PT TO BACK FOR FOLLOW SOON HE CAN AFTER DISCHARGE TODAY. ONE MONTH SUPPLY RX SENT TO PT'S PHARMACY TO ENABLE HIM GET TO HIS PCP. PCP PH #: [phone] [place] [address]
== END 2018-07-01 11:10 | disposition home or self-care (01) | DRG 772 ==
LOC: YASAS 18:55 → Y5N 18:58
PROVIDERS: ADMIT Psychiatry & Neurology Psychiatry; ATTEND Psychiatry & Neurology Psychiatry
PROC: HZ42ZZZ Group Counseling for Substance Abuse Treatment, Cognitive-Behavioral (ICD-10-PCS; principal; 2018-06-13)
DX: F10.20 Alcohol dependence, uncomplicated (principal); F17.210 Nicotine dependence, cigarettes, uncomplicated; F31.60 Bipolar disorder, current episode mixed, unspecified; I10 Essential (primary) hypertension; E78.00 Pure hypercholesterolemia, unspecified; E11.65 Type 2 diabetes mellitus with hyperglycemia; Z79.84 Long term (current) use of oral hypoglycemic drugs; G62.9 Polyneuropathy, unspecified; M94.0 Chondrocostal junction syndrome [Tietze]; K21.9 Gastro-esophageal reflux disease without esophagitis; S00.03XA Contusion of scalp, initial encounter; W22.8XXA Striking against or struck by other objects, initial encounter; Y93.89 Activity, other specified; Y92.230 Patient room in hospital as the place of occurrence of the external cause; Y99.8 Other external cause status; Z91.5 Personal history of self-harm
CPT/HCPCS: 82962; 93005; 93010; 94640; Q0162

== ENCOUNTER 2019-02-13 15:00 | Inpatient (IN) | payer OTHER ==
[2019-02-13 16:55] VITALS: BMI 25.5
--- NOTE | 2019-02-13 17:36 | HP ---
CIWA Score - Admission Criteria OASAS Guidelines: Admission for Medically Managed Detox: Requires at least one of the followin. CIWA greater than 12 2. Seizures within the past 24 hours 3. Delirium tremens within the past 24 hours 4. Hallucinations within the past 24 hours 5. Acute intervention needed for co occurring medical disorder 6. Acute intervention needed for co occurring psychiatric disorder 7. Severe withdrawal that cannot be handled at a lower level of care (continued vomiting, continued diarrhea, abnormal vital signs) requiring intravenous medication and/or fluids 8. Admission ROS [facility] Chief Complaint: Here for rehab from alcohol and cocaine. Allergies/Adverse Reactions: Allergies Allergy/AdvReac Type Severity Reaction Status Date / Time Fish Containing Products Allergy Severe Nausea Verified 02/13/19 16:43 haloperidol [From Haldol] Allergy Severe Hives Verified 02/13/19 16:43 haloperidol lactate Allergy Severe Hives Verified 02/13/19 16:43 [From Haldol] History of Present Illness: 58 yom w/ hx alcohol and substance use disorder. Alcohol use began at age 13. Is in out-patient treatment x 8 months and relapsed a few weeks ago. Last alcohol intake was 02/10/19. Cocaine use began at age 13. Is in out-patient treatment x 8 months and relapsed a few weeks ago w/crack use. Last use 02/10/19. Longest length of sobriety 3 years in [id number]. Denies hx seizures, blackouts, overdoses. PMHx: Asthma (last exacerbation 2008), DM, HTN, Migraines, Elevated cholesterol , states Legally blind and see's blood when closes eyes. MHHx: Anxiety, bipolar, depression. Denies thoughts of harming self or others. No recent visit w/ MH Provider. States seen in [facility] 2 weeks ago and treated for depression. Patient w/ multiple dates and doses on medication bottles and paperwork. Unable to reach pharmacy ([facility] [phone]) to determine accuracy of medications and doses. Patient encouraged to f/u w/ ophthalmology upon discharge. Based on patient's states vision issues, it's unlike that patient has been dosing correctly. Will provide medications based on current meds prescribed in 2019, until pharmacy is able to be contacted. Patient encouraged to contact Supervisor Pastry for support at home. Search Terms: Pj Bond, 1960 Search Date: 02/13/2019 05:57:00 PM The Drug Utilization Report below displays all of the controlled substance prescriptions, if any, that your patient has filled in the last twelve months. The information displayed on this report is compiled from pharmacy submissions to the Department, and accurately reflects the information as submitted by the pharmacies. This report was requested by: Lakesha Ramachandran | Reference #: [id number] There are no results for the search terms that you entered. Exam Limitations: No Limitations - Ebola screening Have you traveled outside of the country in the last 21 days: No Have you had contact with anyone from an Ebola affected area: No Have you been sick,other than usual withdrawal symptoms: No (Denies recent exposure to measles) Do you have a fever: No - Review of Systems Constitutional: No Symptoms Reported EENT: reports: Other (States is legally blind, is able to see shadows, states no asistance at home, fixes own meals at home (uses elecetric stove).) Respiratory: reports: No Symptoms reported Cardiac: reports: Chest Pain (none recently) GI: reports: No Symptoms Reported : reports: No Symptoms Reported Musculoskeletal: reports: Joint Pain (Ankle pain x 1 year - achy and is a "8".) , Other (Ayo calf tenderness x months.) Integumentary: reports: Bruising Neuro: reports: Headache (Hx migraines. No headache at this time), Numbness ( Numbnees, tingling and cold in hands and feet.), Other (Occ jumping of legs) Endocrine: reports: Increased Thirst Hematology: reports: No Symptoms Reported Psychiatric: reports: Judgement Intact, Orientated x3, Agitated, Depressed ( Denies thoughts of harming self or others.) Patient History - Patient Medical History Hx Anemia: No Hx Asthma: Yes Hx Chronic Obstructive Pulmonary Disease (COPD): No Hx Cancer: No Hx Cardiac Disorders: No Hx Congestive Heart Failure: No Hx Hypertension: Yes Hx Hypercholesterolemia: Yes (ON MEDS) Hx Pacemaker: No HX Cerebrovascular Accident: No Hx Seizures: No Hx Dementia: No Hx Diabetes: Yes Hx Gastrointestinal Disorders: No Hx Liver Disease: No Hx Genitourinary Disorders: No Hx Sexually Transmitted Disorders: No Hx Renal Disease (ESRD): No Hx Thyroid Disease: No Hx Human Immunodeficiency Virus (HIV): No (NEGATIVE HX, one year ago ) Hx Hepatitis C: No Hx Depression: Yes Hx Suicide Attempt: Yes Hx Bipolar Disorder: Yes Hx Schizophrenia: No - Patient Surgical History Past Surgical History: No Hx Neurologic Surgery: No Hx Cataract Extraction: No Hx Cardiac Surgery: No Hx Lung Surgery: No Hx Breast Surgery: No Hx Breast Biopsy: No Hx Abdominal Surgery: No Hx Appendectomy: No Hx Cholecystectomy: No Hx Genitourinary Surgery: No Hx Section: No Hx Orthopedic Surgery: No Anesthesia Reaction: No - PPD History Previous Implant?: Yes Implanted On Prior [facility] Admission?: Yes Date: 06/13/18 Results: 0 mm PPD to be Administered?: No - Smoking Cessation Smoking history: Current every day smoker Have you smoked in the past 12 months: Yes Aproximately how many cigarettes per day: 20 Cigars Per Day: 0 Hx Chewing Tobacco Use: No Initiated information on smoking cessation: Yes 'Breaking Loose' booklet given: 02/13/19 - Substance & Tx. History Hx Alcohol Use: Yes Hx Substance Use: Yes Substance Use Type: Alcohol, Cocaine Hx Substance Use Treatment: Yes (detox, rehab) - Substances abused Alcohol Substance route: Oral Frequency: Daily Amount used: liquor- 2 , beer- 5 berrs Age of first use: 13 Date of last use: 02/10/19 Cocaine Substance route: Smoking Date of last use: 02/13/19 Family Disease History - Family Disease History Family Disease History: Diabetes: Grandparent (alcohol use ), CA: Mother, Brother (alcohol), Sister (alcohol), Respiratory: Brother, Other: Grandparent, Father (alcohol), Brother, Sister Admission Physical Exam [facility] - Vital Signs Vital Signs: Vital Signs - 24 hr 02/13/19 02/13/19 16:25 17:05 Temperature 98.4 F 98.4 F Pulse Rate 80 80 Respiratory 18 18 Rate Blood Pressure 149/78 149/78 - Physical General Appearance: Yes: Nourished, Irritable, Anxious HEENTM: Yes: EOMI (Jerking movements of eyes upon lateral gaze. Patient able to follow finger movement w/o difficulty.), Hearing grossly Normal, Normocephalic, SWETHA, Pharynx Normal, Other (Patient w/ hx of low vision but walked to nursing counter and picked up one of 2 cookies w/o difficulty or being told they were there.) Respiratory: Yes: Lungs Clear, Normal Breath Sounds, No Respiratory Distress Neck: Yes: No masses,lesions,Nodules, Supple Breast: Yes: Breast Exam Deferred Cardiology: Yes: Regular Rate, Murmur (Murmur noted), Other (Today's EKG = NSR w / (R) BBB. No changes from 06/10/18 and 06/18/18 EKG's.) Abdominal: Yes: Normal Bowel Sounds, Non Tender, Flat, Soft Genitourinary: Yes: Within Normal Limits Back: Yes: Normal Inspection Musculoskeletal: Yes: full range of Motion, Gait Steady Extremities: Yes: Normal Capillary Refill, Normal Inspection, Normal Range of Motion, Non-Tender, Other (Cracked, dry skin feet and toes) Neurological: Yes: nail tech II-XII NML intact (Jerking movements of eyes upon lateral gaze.), Fully Oriented, Alert, Motor Strength 5/5 Integumentary: Yes: Normal Color, Dry, Warm, Other (Scattered superficial abrasions on shins.) Lymphatic: Yes: Within Normal Limits - Diagnostic (1) Alcohol use disorder, mild, in early remission Current Visit: Yes Status: Acute (2) Cocaine use disorder, moderate, in early remission Current Visit: Yes Status: Acute (3) History of asthma Current Visit: No Status: Chronic (4) History of visual impairment Current Visit: Yes Status: Chronic Comment: States is legally blind (5) DM (diabetes mellitus), type 2 Current Visit: Yes Status: Chronic Qualifiers: Diabetes mellitus skilled nursing insulin use: with long chain beamer use Diabetes mellitus complication status: with neurologic complications Diabetes mellitus complication detail: with unspecified neuropathy Qualified Code(s): E11.40 - Type 2 diabetes mellitus with diabetic neuropathy, unspecified; Z79.4 - intermission coordinator (current) use of insulin (6) Hyperlipidemia Current Visit: Yes Status: Chronic Qualifiers: Hyperlipidemia type: unspecified Qualified Code(s): E78.5 - Hyperlipidemia , unspecified (7) Hypertension Current Visit: Yes Status: Chronic Qualifiers: Hypertension type: essential hypertension Qualified Code(s): I10 - Essential (primary) hypertension (8) Nicotine dependence Current Visit: Yes Status: Chronic Qualifiers: Nicotine product type: cigarettes Substance use status: in withdrawal Qualified Code(s): F17.213 - Nicotine dependence, cigarettes, with withdrawal (9) Peripheral neuropathy Current Visit: Yes Status: Chronic Qualifiers: Peripheral neuropathy type: polyneuropathy, unspecified Qualified Code(s): G62.9 - Polyneuropathy, unspecified (10) History of migraine headaches Current Visit: No Status: Chronic (11) Murmur, cardiac Current Visit: Yes Status: Chronic (12) Tinea pedis Current Visit: Yes Status: Chronic Qualifiers: Laterality: bilateral Qualified Code(s): B35.3 - Tinea pedis Cleared for Admission [facility] - Detox or Rehab Claeared for Rehab Admission: Yes Breathalyzer - Breathalyzer Breathalyzer: 0 Urine Drug Screen - Test Device Lot number: [id number] Expiration date: 11/06/20 - Control Is test valid?: Yes - Results Drug screen NEGATIVE: Yes Inpatient Rehab Admission - Rehab Decision to Admit Inpatient rehab admission?: Yes - Initial Determination Are CD services needed?: Yes Free of communicable disease: Yes Not in need of hospitalization: Yes - Rehab Admission Criteria Previous failed treatment: Yes Poor recovery environment: Yes Comorbidities: Yes Lacks judgement: No Patient is meeting Inpatient Rehab admission criteria:: Yes
[2019-02-13] MEDS ORDERED: MAGNESIUM CITRATE 300 ML BOTTLE PO PRN (18:35)
[2019-02-13] MEDS ORDERED: MENTHOL/PHENOL 1 EACH UD MM PRN (18:35)
[2019-02-13] MEDS ORDERED: hydrOXYzine PAMOATE 25 MG CAPSULE (FP) PO PRN (18:35)
[2019-02-13] MEDS ORDERED: P-EPHED 60MG/TRIPROLIDI 2.5MG TABLET PO PRN (18:35)
[2019-02-13] MEDS ORDERED: MAGNESIUM HYDROX 2400MG/30ML ORAL SUSPENSION 30 ML CUP PO PRN (18:35)
[2019-02-13] MEDS ORDERED: NICOTINE POLACRILEX 2 MG GUM BC PRN (18:35)
[2019-02-13] MEDS ORDERED: guaiFENesin 200 MG/10 ML 10 ML UNIT-DOSE CUPS PO PRN (18:35)
[2019-02-13] MEDS ORDERED: MAG HYDROX/AL HYDROX/SIMETH 30 ML UNIT-DOSE CUP PO PRN (18:35)
[2019-02-13] MEDS ORDERED: LOPERAMIDE HCL 2 MG CAPSULE PO PRN (18:35)
[2019-02-13] MEDS ORDERED: INSULIN (NOVOLOG) ASPART 100 UNITS/ML 10ML VIAL SQ ONE (20:24)
[2019-02-13] MEDS: THIAMINE HCL 100 MG TABLET (FP) PO SCH (21:12)
[2019-02-13] MEDS: MELATONIN 5 MG TABLETS PO PRN (21:12)
[2019-02-13] MEDS: INSULIN (LEVEMIR) 100 UNITS/ML UNITS SQ SCH (21:17)
[2019-02-13] MEDS: BACITRACIN 0.9 GM PACKET TP SCH (21:17)
[2019-02-13] MEDS: GABAPENTIN 300 MG CAPSULE (FP) PO SCH (21:44)
[2019-02-13] MEDS: TOLNAFTATE 1% CREAM 15 GM TUBE TP SCH (21:44)
[2019-02-13] MEDS ORDERED: ATORVASTATIN CA 40 MG TABLET (FP) PO SCH (22:00)
[2019-02-14] MEDS: GABAPENTIN 300 MG CAPSULE (FP) PO SCH ×3 (06:14→21:41)
[2019-02-14] MEDS: metFORMIN HCL 500 MG TABLET (FP) PO SCH ×2 (06:55→16:52)
[2019-02-14] MEDS ORDERED: INSULIN (NOVOLOG) ASPART 100 UNITS/ML 10ML VIAL ONE ×2 (07:33→16:43)
[2019-02-14] MEDS: INSULIN (NOVOLOG) ASPART 100 UNITS/ML 10ML VIAL SQ SCH ×3 (07:34→16:59)
[2019-02-14] MEDS: ASPIRIN 81 MG CHEWABLE TABLETS PO SCH (10:02)
[2019-02-14] MEDS: TOLNAFTATE 1% CREAM 15 GM TUBE TP SCH ×2 (10:02→21:42)
[2019-02-14] MEDS: LISINOPRIL 20 MG TABLET (FP) PO SCH (10:02)
[2019-02-14] MEDS: PRENATAL VITAMINS W/ FOLIC ACID TABLET (FP) PO SCH (10:02)
[2019-02-14] MEDS: BACITRACIN 0.9 GM PACKET TP SCH ×2 (10:02→21:40)
[2019-02-14] MEDS: NICOTINE 21 MG/24 HOURS TOPICAL PATCH TD SCH (10:03)
[2019-02-14 11:30] LABS: HEMATOCRIT 37.1 % (35.4-49); HEMOGLOBIN 12.1 GM/dL (11.7-16.9); MCH 27.5 pg (25.7-33.7); MCHC 32.7 g/dl (32.0-35.9); MEAN CELL VOLUME 84.3 fl (80-96); MEAN PLT VOLUME 11.1 fl (7.5-11.1); PLATELET COUNT 152 K/MM3 (134-434); WHITE BLOOD COUNT 4.5 K/mm3 (4.0-10.0)
[2019-02-14 11:53] LABS: EPI CELLS 0.6 /HPF (0-5/HPF); URINE BACTERIA 0.5 /hpf (NEGATIVE); URINE CASTS 0 /lpf (0-8); URINE RBC 2 /hpf (0-4); URINE WBC 1 /hpf (0-5)
[2019-02-14 11:58] LABS: ALBUMIN 3.2 g/dl (3.4-5.0); BILIRUBIN,TOTAL 0.4 mg/dL (0.2-1); CALCIUM 9.4 mg/dL (8.5-10.1); CREATININE 0.9 mg/dL (0.55-1.3); POTASSIUM 4.5 mmol/L (3.5-5.1); TOT PROT 5.9 g/dl (6.4-8.2)
[2019-02-14 12:05] LABS: PH,URINE 6.5 (5.0-8.0); URINE APPEARANCE Clear; URINE BILIRUBIN Negative (NEGATIVE); URINE COLOR Yellow; URINE GLUCOSE (UA) 3+ (NEGATIVE); URINE KETONE Negative (NEGATIVE); URINE LEUK ESTERASE Negative (NEGATIVE); URINE NITRITE Negative (NEGATIVE); URINE PROTEIN 2+ (NEGATIVE); URINE UROBILINOGEN 0.2 mg/dL (0.2-1.0)
--- NOTE | 2019-02-14 19:55 | CONSULT ---
[facility] Psychiatric Consult - Data Date of interview: 02/14/19 Admission source: [facility] Identifying data: Direct admission to [address] for this 58 y/o AA male self-referred for rehabilitation treatment (cocaine, alcohol). Patient is single without children, domiciled, unemployed and supported on SSI benefits. Substance Abuse History: Discussed with the patient He confirmed conthents of current [facility] report : Smoking history: Current every day smoker. Have you smoked in the past 12 months: Yes. Aproximately how many cigarettes per day: 20. Cigars Per Day: 0. Hx Chewing Tobacco Use: No. Initiated information on smoking cessation: Yes. 'Breaking Loose' booklet given: 02/13/19. - Substance & Tx. History. Hx Alcohol Use: Yes. Hx Substance Use: Yes. Substance Use Type : Alcohol, Cocaine. Hx Substance Use Treatment: Yes (detox, rehab). - Substances abused. Alcohol. Substance route: Oral. Frequency: Daily. Amount used: liquor- 2 , beer- 5 berrs. Age of first use: 13. Date of last use : 02/10/19. Cocaine. Substance route: Smoking. Date of last use: 02/13/19 Medical History: Remarkable for insulin-dependent diabetes mellitus, bronchial asthma, hypercholesterolemia and peripheral neuropathy. Psychiatric History: History of multiple psychiatric hospitalizations since 1984. Patient is known to [facility] (committed for suicidal ideation/intent to jump off a bridge), [facility] and [facility]. Diagnosed with Bipolar Disorder. Mr Bond admits to poor adherence to OPD care. He used to be followed at the [facility] clinic (medications : prozac 20 mg/day + remeron 30 mg/hs). History of suicide attempt via deliberate self-exposure to oncoming traffic ( 2017). Physical/Sexual Abuse/Trauma History: Patient declines discussion. Additional Comment: Drug screen is negative. Mental Status Exam - Mental Status Exam Alert and Oriented to: Time, Place, Person Cognitive Function: Good Patient Appearance: Well Groomed Mood: Apprehensive, Hopeful Affect: Mood Congruent, Constricted Patient Behavior: Appropriate, Cooperative Speech Pattern: Clear, Appropriate Voice Loudness: Normal Thought Process: Goal Oriented Thought Disorder: Not Present Hallucinations: Denies Suicidal Ideation: Denies Homicidal Ideation: Denies Insight/Judgement: Fair Sleep: Fair (patient requests melatonin at bedtime) Gait/Station: Other (uses a cane for ambulation) Psychiatric Findings - Problem List ([place] 1, 2,3) (1) Alcohol dependence Current Visit: Yes Status: Chronic (2) Cocaine dependence Current Visit: Yes Status: Chronic Qualifiers: Substance use status: uncomplicated Qualified Code(s): F14.20 - Cocaine dependence, uncomplicated (3) Nicotine dependence Current Visit: Yes Status: Chronic Qualifiers: Nicotine product type: cigarettes Substance use status: in withdrawal Qualified Code(s): F17.213 - Nicotine dependence, cigarettes, with withdrawal (4) Substance induced mood disorder Current Visit: Yes Status: Chronic (5) Insomnia Current Visit: Yes Status: Chronic - Initial Treatment Plan Initial Treatment Plan: Psychoeducation. Sleep hygiene. AA meetings. Motivational counseling. Prozac 10 mg po daily. Side effects/benefits discussed with patient. Mr Bond agrees. Verbal consent given to MD. Hooper.
[2019-02-14] MEDS: MELATONIN 5 MG TABLETS PO PRN (21:40)
[2019-02-14] MEDS: INSULIN (LEVEMIR) 100 UNITS/ML UNITS SQ SCH (21:40)
[2019-02-14] MEDS: THIAMINE HCL 100 MG TABLET (FP) PO SCH (21:40)
[2019-02-14] MEDS: ATORVASTATIN CA 80 MG TABLET (FP) PO SCH (21:41)
[2019-02-15] MEDS ORDERED: INSULIN (NOVOLOG) ASPART 100 UNITS/ML 10ML VIAL ONE (05:24)
[2019-02-15] MEDS: GABAPENTIN 300 MG CAPSULE (FP) PO SCH ×3 (06:33→21:13)
[2019-02-15] MEDS: metFORMIN HCL 500 MG TABLET (FP) PO SCH ×2 (06:33→16:41)
[2019-02-15] MEDS: INSULIN (NOVOLOG) ASPART 100 UNITS/ML 10ML VIAL SQ SCH ×3 (07:48→16:42)
[2019-02-15] MEDS: ASPIRIN 81 MG CHEWABLE TABLETS PO SCH (09:40)
[2019-02-15] MEDS: BACITRACIN 0.9 GM PACKET TP SCH ×2 (09:40→21:13)
[2019-02-15] MEDS: PRENATAL VITAMINS W/ FOLIC ACID TABLET (FP) PO SCH (09:40)
[2019-02-15] MEDS: LISINOPRIL 20 MG TABLET (FP) PO SCH (09:40)
[2019-02-15] MEDS: NICOTINE 21 MG/24 HOURS TOPICAL PATCH TD SCH (09:40)
[2019-02-15] MEDS: FLUoxetine HCL 10 MG TABLET PO SCH (09:41)
[2019-02-15] MEDS: TOLNAFTATE 1% CREAM 15 GM TUBE TP SCH ×2 (09:41→21:14)
[2019-02-15] MEDS ORDERED: FLUoxetine HCL 20 MG CAPSULE (FP) PO SCH (10:00)
--- NOTE | 2019-02-15 12:10 | PN ---
[facility] Progress Note Note: patient needs admission dietary order
--- NOTE | 2019-02-15 12:27 | EKG ---
Test Reason : Blood Pressure : / mmHG Vent. Rate : 069 BPM Atrial Rate : 069 BPM P-R Int : 122 ms QRS Dur : 126 ms QT Int : 414 ms P-R-T Axes : 065 084 053 degrees QTc Int : 443 ms NORMAL SINUS RHYTHM RIGHT BUNDLE BRANCH BLOCK ABNORMAL ECG WHEN COMPARED WITH ECG OF 18-JUN-2018 12:24, T WAVE AMPLITUDE HAS INCREASED IN LATERAL LEADS Confirmed by KENROY HAYES, CHRISTO ([id number]) on 02/15/2019 12:26:52 PM Referred By: Confirmed By:CHRISTO JASMINE MD
[2019-02-15] MEDS: INSULIN (LEVEMIR) 100 UNITS/ML UNITS SQ SCH (21:13)
[2019-02-15] MEDS: ATORVASTATIN CA 80 MG TABLET (FP) PO SCH (21:13)
[2019-02-15] MEDS: THIAMINE HCL 100 MG TABLET (FP) PO SCH (21:14)
[2019-02-16] MEDS: GABAPENTIN 300 MG CAPSULE (FP) PO SCH ×3 (06:30→21:37)
[2019-02-16] MEDS: metFORMIN HCL 500 MG TABLET (FP) PO SCH ×2 (06:32→16:40)
[2019-02-16] MEDS: ACETAMINOPHEN 325 MG TABLET (FP) PO PRN (06:33)
[2019-02-16] MEDS: INSULIN (NOVOLOG) ASPART 100 UNITS/ML 10ML VIAL SQ SCH ×3 (07:53→16:41)
[2019-02-16] MEDS: NICOTINE 21 MG/24 HOURS TOPICAL PATCH TD SCH (10:16)
[2019-02-16] MEDS: PRENATAL VITAMINS W/ FOLIC ACID TABLET (FP) PO SCH (10:16)
[2019-02-16] MEDS: BACITRACIN 0.9 GM PACKET TP SCH ×2 (10:16→21:37)
[2019-02-16] MEDS: ASPIRIN 81 MG CHEWABLE TABLETS PO SCH (10:16)
[2019-02-16] MEDS: TOLNAFTATE 1% CREAM 15 GM TUBE TP SCH ×2 (10:17→21:38)
[2019-02-16] MEDS: LISINOPRIL 20 MG TABLET (FP) PO SCH (10:17)
[2019-02-16] MEDS: FLUoxetine HCL 10 MG TABLET PO SCH (10:59)
[2019-02-16] MEDS: ATORVASTATIN CA 80 MG TABLET (FP) PO SCH (21:37)
[2019-02-16] MEDS: THIAMINE HCL 100 MG TABLET (FP) PO SCH (21:37)
[2019-02-16] MEDS: INSULIN (LEVEMIR) 100 UNITS/ML UNITS SQ SCH (21:40)
[2019-02-17] MEDS: GABAPENTIN 300 MG CAPSULE (FP) PO SCH ×3 (06:31→21:05)
[2019-02-17] MEDS: metFORMIN HCL 500 MG TABLET (FP) PO SCH ×2 (06:32→16:46)
[2019-02-17] MEDS: INSULIN (NOVOLOG) ASPART 100 UNITS/ML 10ML VIAL SQ SCH ×3 (07:31→16:47)
[2019-02-17] MEDS: TOLNAFTATE 1% CREAM 15 GM TUBE TP SCH ×2 (10:02→21:07)
[2019-02-17] MEDS: NICOTINE 21 MG/24 HOURS TOPICAL PATCH TD SCH (10:02)
[2019-02-17] MEDS: ASPIRIN 81 MG CHEWABLE TABLETS PO SCH (10:02)
[2019-02-17] MEDS: PRENATAL VITAMINS W/ FOLIC ACID TABLET (FP) PO SCH (10:02)
[2019-02-17] MEDS: LISINOPRIL 20 MG TABLET (FP) PO SCH (10:03)
[2019-02-17] MEDS: FLUoxetine HCL 10 MG TABLET PO SCH (10:04)
[2019-02-17] MEDS: BACITRACIN 0.9 GM PACKET TP SCH ×2 (10:32→21:06)
[2019-02-17] MEDS: BENZOCAINE 28 GM HEMORRHOIDAL OINTMENT PR SCH (11:46)
[2019-02-17] MEDS: MELATONIN 5 MG TABLETS PO PRN (21:05)
[2019-02-17] MEDS: ATORVASTATIN CA 80 MG TABLET (FP) PO SCH (21:05)
[2019-02-17] MEDS: INSULIN (LEVEMIR) 100 UNITS/ML UNITS SQ SCH (21:06)
[2019-02-17] MEDS: THIAMINE HCL 100 MG TABLET (FP) PO SCH (21:07)
[2019-02-18] MEDS: ACETAMINOPHEN 325 MG TABLET (FP) PO PRN ×2 (00:32→14:54)
[2019-02-18] MEDS: GABAPENTIN 300 MG CAPSULE (FP) PO SCH ×2 (05:55→14:43)
[2019-02-18] MEDS: metFORMIN HCL 500 MG TABLET (FP) PO SCH ×2 (07:08→17:59)
[2019-02-18] MEDS: INSULIN (NOVOLOG) ASPART 100 UNITS/ML 10ML VIAL SQ SCH ×4 (07:08→17:59)
[2019-02-18] MEDS ORDERED: PT OWN MED DRAWER 7, Y5N ONE (09:11)
[2019-02-18] MEDS: ASPIRIN 81 MG CHEWABLE TABLETS PO SCH (10:01)
[2019-02-18] MEDS: PRENATAL VITAMINS W/ FOLIC ACID TABLET (FP) PO SCH (10:01)
[2019-02-18] MEDS: NICOTINE 21 MG/24 HOURS TOPICAL PATCH TD SCH (10:01)
[2019-02-18] MEDS: FLUoxetine HCL 10 MG TABLET PO SCH (10:02)
[2019-02-18] MEDS: BACITRACIN 0.9 GM PACKET TP SCH ×2 (10:02→21:46)
[2019-02-18] MEDS: LISINOPRIL 20 MG TABLET (FP) PO SCH (10:02)
[2019-02-18] MEDS: TOLNAFTATE 1% CREAM 15 GM TUBE TP SCH ×2 (10:04→21:47)
[2019-02-18] MEDS ORDERED: INSULIN (NOVOLOG) ASPART 100 UNITS/ML 10ML VIAL ONE (11:35)
[2019-02-18] MEDS: BENZOCAINE 28 GM HEMORRHOIDAL OINTMENT PR SCH (11:36)
[2019-02-18] MEDS ORDERED: IBUPROFEN 600 MG TABLET (FP) PO ONE (17:48)
[2019-02-18] MEDS: MELATONIN 5 MG TABLETS PO PRN (21:38)
[2019-02-18] MEDS: GABAPENTIN 400 MG CAPSULE (FP) PO SCH (21:47)
[2019-02-18] MEDS: ATORVASTATIN CA 80 MG TABLET (FP) PO SCH (21:47)
[2019-02-18] MEDS: INSULIN (LEVEMIR) 100 UNITS/ML UNITS SQ SCH (21:47)
[2019-02-18] MEDS: THIAMINE HCL 100 MG TABLET (FP) PO SCH (21:47)
[2019-02-19] MEDS: GABAPENTIN 400 MG CAPSULE (FP) PO SCH ×3 (05:56→21:13)
[2019-02-19] MEDS: INSULIN (NOVOLOG) ASPART 100 UNITS/ML 10ML VIAL SQ SCH ×3 (07:43→16:44)
[2019-02-19] MEDS: metFORMIN HCL 500 MG TABLET (FP) PO SCH ×2 (07:43→16:43)
[2019-02-19] MEDS: BACITRACIN 0.9 GM PACKET TP SCH ×2 (09:38→21:13)
[2019-02-19] MEDS: BENZOCAINE 28 GM HEMORRHOIDAL OINTMENT PR SCH (09:39)
[2019-02-19] MEDS: FLUoxetine HCL 10 MG TABLET PO SCH (09:39)
[2019-02-19] MEDS: LISINOPRIL 20 MG TABLET (FP) PO SCH (09:39)
[2019-02-19] MEDS: ASPIRIN 81 MG CHEWABLE TABLETS PO SCH (09:39)
[2019-02-19] MEDS: NICOTINE 21 MG/24 HOURS TOPICAL PATCH TD SCH (09:39)
[2019-02-19] MEDS: PRENATAL VITAMINS W/ FOLIC ACID TABLET (FP) PO SCH (09:39)
[2019-02-19] MEDS: TOLNAFTATE 1% CREAM 15 GM TUBE TP SCH ×2 (09:40→21:17)
[2019-02-19] MEDS ORDERED: INSULIN (NOVOLOG) ASPART 100 UNITS/ML 10ML VIAL ONE (12:00)
[2019-02-19] MEDS: ACETAMINOPHEN 325 MG TABLET (FP) PO PRN ×2 (16:00→21:48)
[2019-02-19] MEDS: THIAMINE HCL 100 MG TABLET (FP) PO SCH (21:13)
[2019-02-19] MEDS: ATORVASTATIN CA 80 MG TABLET (FP) PO SCH (21:13)
[2019-02-19] MEDS: INSULIN (LEVEMIR) 100 UNITS/ML UNITS SQ SCH (21:17)
[2019-02-20] MEDS: GABAPENTIN 400 MG CAPSULE (FP) PO SCH ×3 (06:17→21:38)
[2019-02-20] MEDS: INSULIN (NOVOLOG) ASPART 100 UNITS/ML 10ML VIAL SQ SCH ×3 (07:37→16:58)
[2019-02-20] MEDS: metFORMIN HCL 500 MG TABLET (FP) PO SCH ×2 (07:38→16:57)
[2019-02-20] MEDS: ASPIRIN 81 MG CHEWABLE TABLETS PO SCH (10:14)
[2019-02-20] MEDS: BACITRACIN 0.9 GM PACKET TP SCH ×2 (10:14→21:38)
[2019-02-20] MEDS: PRENATAL VITAMINS W/ FOLIC ACID TABLET (FP) PO SCH (10:14)
[2019-02-20] MEDS: FLUoxetine HCL 10 MG TABLET PO SCH (10:14)
[2019-02-20] MEDS: LISINOPRIL 20 MG TABLET (FP) PO SCH (10:14)
[2019-02-20] MEDS: NICOTINE 21 MG/24 HOURS TOPICAL PATCH TD SCH (10:14)
[2019-02-20] MEDS: TOLNAFTATE 1% CREAM 15 GM TUBE TP SCH ×2 (10:16→21:39)
[2019-02-20] MEDS: BENZOCAINE 28 GM HEMORRHOIDAL OINTMENT PR SCH (10:16)
[2019-02-20] MEDS ORDERED: INSULIN (NOVOLOG) ASPART 100 UNITS/ML 10ML VIAL ONE (11:47)
[2019-02-20] MEDS: ATORVASTATIN CA 80 MG TABLET (FP) PO SCH (21:38)
[2019-02-20] MEDS: MELATONIN 5 MG TABLETS PO PRN (21:38)
[2019-02-20] MEDS: ACETAMINOPHEN 325 MG TABLET (FP) PO PRN (21:39)
[2019-02-20] MEDS: THIAMINE HCL 100 MG TABLET (FP) PO SCH (21:39)
[2019-02-20] MEDS: INSULIN (LEVEMIR) 100 UNITS/ML UNITS SQ SCH (21:42)
[2019-02-21] MEDS: GABAPENTIN 400 MG CAPSULE (FP) PO SCH ×3 (06:10→21:03)
[2019-02-21] MEDS: metFORMIN HCL 500 MG TABLET (FP) PO SCH ×2 (06:11→16:40)
[2019-02-21 06:41] VITALS: TEMP 97.4
[2019-02-21] MEDS: INSULIN (NOVOLOG) ASPART 100 UNITS/ML 10ML VIAL SQ SCH ×3 (07:50→16:42)
[2019-02-21 09:09] VITALS: BP 131/69; PULSE 81
[2019-02-21] MEDS ORDERED: PT OWN MED DRAWER 7, Y5N ONE (09:21)
[2019-02-21] MEDS: PRENATAL VITAMINS W/ FOLIC ACID TABLET (FP) PO SCH (09:59)
[2019-02-21] MEDS: NICOTINE 21 MG/24 HOURS TOPICAL PATCH TD SCH (09:59)
[2019-02-21] MEDS: LISINOPRIL 20 MG TABLET (FP) PO SCH (09:59)
[2019-02-21] MEDS: ASPIRIN 81 MG CHEWABLE TABLETS PO SCH (09:59)
[2019-02-21] MEDS: BENZOCAINE 28 GM HEMORRHOIDAL OINTMENT PR SCH (09:59)
[2019-02-21] MEDS: TOLNAFTATE 1% CREAM 15 GM TUBE TP SCH ×2 (10:00→21:03)
[2019-02-21] MEDS: FLUoxetine HCL 10 MG TABLET PO SCH (10:04)
[2019-02-21] MEDS: BACITRACIN 0.9 GM PACKET TP SCH ×2 (11:00→21:03)
[2019-02-21] MEDS ORDERED: INSULIN (NOVOLOG) ASPART 100 UNITS/ML 10ML VIAL ONE (11:12)
[2019-02-21] MEDS: ATORVASTATIN CA 80 MG TABLET (FP) PO SCH (21:03)
[2019-02-21] MEDS: THIAMINE HCL 100 MG TABLET (FP) PO SCH (21:03)
[2019-02-21] MEDS: INSULIN (LEVEMIR) 100 UNITS/ML UNITS SQ SCH (21:06)
== END 2019-02-22 00:10 | disposition short-term general hospital (02) | DRG 772 ==
LOC: YASAS 15:00 → Y3W 18:52
PROVIDERS: ADMIT Neuromusculoskeletal Medicine & OMM; ATTEND Neuromusculoskeletal Medicine & OMM
PROC: HZ42ZZZ Group Counseling for Substance Abuse Treatment, Cognitive-Behavioral (ICD-10-PCS; principal; 2019-02-13)
DX: F10.20 Alcohol dependence, uncomplicated (principal); F14.20 Cocaine dependence, uncomplicated; F17.210 Nicotine dependence, cigarettes, uncomplicated; F19.24 Other psychoactive substance dependence with psychoactive substance-induced mood disorder; F31.9 Bipolar disorder, unspecified; G47.00 Insomnia, unspecified; J45.909 Unspecified asthma, uncomplicated; I10 Essential (primary) hypertension; E78.00 Pure hypercholesterolemia, unspecified; E11.40 Type 2 diabetes mellitus with diabetic neuropathy, unspecified; Z79.4 Long term (current) use of insulin; Z86.69 Personal history of other diseases of the nervous system and sense organs; Z91.5 Personal history of self-harm; Z88.8 Allergy status to other drugs, medicaments and biological substances; Z91.018 Allergy to other foods
CPT/HCPCS: 36415; 80053; 81003; 82962; 85027; 86593; 90853; 93005; 93010

== ENCOUNTER 2019-09-15 13:40 | Inpatient (IN) | payer OTHER ==
[2019-09-15 16:14] VITALS: BMI 24.9
--- NOTE | 2019-09-15 18:24 | HP ---
CIWA Score - Admission Criteria OASAS Guidelines: Admission for Medically Managed Detox: Requires at least one of the followin. CIWA greater than 12 2. Seizures within the past 24 hours 3. Delirium tremens within the past 24 hours 4. Hallucinations within the past 24 hours 5. Acute intervention needed for co occurring medical disorder 6. Acute intervention needed for co occurring psychiatric disorder 7. Severe withdrawal that cannot be handled at a lower level of care (continued vomiting, continued diarrhea, abnormal vital signs) requiring intravenous medication and/or fluids 8. Admitting History and Physical - Smoking History Smoking history: Current every day smoker Have you smoked in the past 12 months: Yes Aproximately how many cigarettes per day: 20 - Alcohol/Substance Use Hx Alcohol Use: Yes Admission [facility] Allergies/Adverse Reactions: Allergies Allergy/AdvReac Type Severity Reaction Status Date / Time Fish Containing Products Allergy Severe Nausea Verified 09/15/19 15:55 haloperidol [From Haldol] Allergy Severe Hives Verified 09/15/19 15:55 haloperidol lactate Allergy Severe Hives Verified 09/15/19 15:55 [From Haldol] History of Present Illness: Search Terms: maicol saravia, 1960 Search Date: 09/15/2019 06:20:19 PM The Drug Utilization Report below displays all of the controlled substance prescriptions, if any, that your patient has filled in the last twelve months. The information displayed on this report is compiled from pharmacy submissions to the Department, and accurately reflects the information as submitted by the pharmacies. This report was requested by: Inna Arguelles | Reference #: [id number] There are no results for the search terms that you entered. pt here requesting rehab from etoh and cocaine use , reports relapse since previous admission at this facility February 2019 reports moderate use ", latest "not too long ago , I can't remember , not every day , 3-4 x / week ". Pt is poor historian, evasive . etoh : beer 22 oz x 4 /day 4 x /week , denies tremors , blackouts or seizures , latest use last Saturday . PMHX : DM 1 , r eye blind , glaucoma PSHX : denies Psych : depression , suicide attempt April 2019 , denies current SI SHX : probation add'l 24 months Exam Limitations: No Limitations - Ebola screening Have you traveled outside of the country in the last 21 days: No Have you had contact with anyone from an Ebola affected area: No Do you have a fever: No - Review of Systems Constitutional: No Symptoms Reported EENT: reports: See HPI, Blurred Vision, Other (r eye blind , had surgery [facility] Jun 2019 claims Lasik) Respiratory: reports: No Symptoms reported Cardiac: reports: No Symptoms Reported GI: reports: Diarrhea : reports: No Symptoms Reported Musculoskeletal: reports: Joint Pain (left hip , chronic) Integumentary: reports: Other ( toenail lost 2 weeks ago) Neuro: reports: Headache (reports migraine) Endocrine: reports: See HPI (DM x 20 yrs) Hematology: reports: No Symptoms Reported Psychiatric: reports: Orientated x3, Anxious, Disorientated Patient History - Patient Medical History Hx Anemia: No Hx Asthma: Yes Hx Chronic Obstructive Pulmonary Disease (COPD): No Hx Cancer: No Hx Cardiac Disorders: No Hx Congestive Heart Failure: No Hx Hypertension: Yes Hx Hypercholesterolemia: Yes (ON MEDS) Hx Pacemaker: No HX Cerebrovascular Accident: No Hx Seizures: No Hx Dementia: No Hx Diabetes: Yes Hx Gastrointestinal Disorders: No Hx Liver Disease: No Hx Genitourinary Disorders: No Hx Sexually Transmitted Disorders: No Hx Renal Disease (ESRD): No Hx Thyroid Disease: No Hx Human Immunodeficiency Virus (HIV): No (NEGATIVE HX, one year ago ) Hx Hepatitis C: No Hx Depression: Yes Hx Suicide Attempt: Yes Hx Bipolar Disorder: Yes Hx Schizophrenia: No - Patient Surgical History Past Surgical History: Yes Hx Neurologic Surgery: No Hx Cataract Extraction: No Hx Cardiac Surgery: No Hx Lung Surgery: No Hx Breast Surgery: No Hx Breast Biopsy: No Hx Abdominal Surgery: No Hx Appendectomy: No Hx Cholecystectomy: No Hx Genitourinary Surgery: No Hx Section: No Hx Orthopedic Surgery: No Other Surgical History: eye Anesthesia Reaction: No - PPD History Date: 06/13/18 Results: 0 mm - Smoking Cessation Smoking history: Current every day smoker Have you smoked in the past 12 months: Yes Aproximately how many cigarettes per day: 20 Cigars Per Day: 0 Hx Chewing Tobacco Use: No Initiated information on smoking cessation: Yes 'Breaking Loose' booklet given: 09/15/19 - Substances abused Alcohol Substance route: Oral Frequency: 3-6 times per week Amount used: 3 -4x 22 OZ BEER Age of first use: 13 Date of last use: 09/12/19 Cocaine Substance route: Smoking Frequency: 3-6 times per week Amount used: $200 OR MORE Age of first use: 13 Date of last use: 09/10/19 Admission Physical Exam S - Vital Signs Vital Signs: Vital Signs - 24 hr 09/15/19 16:08 Temperature 98.3 F Pulse Rate 82 Respiratory 20 Rate Blood Pressure 149/70 - Physical General Appearance: Yes: Anxious HEENTM: Yes: Hearing grossly Normal, Normocephalic, Normal Voice, Other (R eye blind) Respiratory: Yes: Chest Non-Tender, Lungs Clear, Normal Breath Sounds, No Respiratory Distress, No Accessory Muscle Use Neck: Yes: No masses,lesions,Nodules, Trachea in good position Cardiology: Yes: Regular Rhythm, Regular Rate, S1, S2 Abdominal: Yes: Normal Bowel Sounds, Non Tender, Soft Musculoskeletal: Yes: full range of Motion, Gait Steady Extremities: Yes: Normal Range of Motion, Non-Tender, Pedal Edema (right > left) Neurological: Yes: Fully Oriented, Alert, Motor Strength 5/5 Integumentary: Yes: Warm, Other (right 2nd toe nail maceration and superficial excoriation , right gt toe dystrophic , left gt toe and left 2nd toe onychomycosis .) - Diagnostic (1) Alcohol use disorder, mild, in early remission Current Visit: Yes Status: Chronic (2) Cocaine use disorder, moderate, in early remission Current Visit: Yes Status: Chronic (3) Nicotine dependence Current Visit: Yes Status: Chronic Qualifiers: Nicotine product type: cigarettes Breathalyzer - Breathalyzer Breathalyzer: 0 Urine Drug Screen - Test Device Lot number: [id number] Expiration date: 11/06/20 - Control Is test valid?: Yes - Results Drug screen NEGATIVE: Yes Inpatient Rehab Admission - Rehab Decision to Admit Inpatient rehab admission?: Yes - Initial Determination Are CD services needed?: Yes Free of communicable disease: Yes Not in need of hospitalization: Yes - Rehab Admission Criteria Previous failed treatment: Yes Poor recovery environment: Yes Comorbidities: Yes Lacks judgement: Yes Patient is meeting Inpatient Rehab admission criteria:: Yes
[2019-09-15] MEDS ORDERED: ALBUTEROL SO4 8 GM HFA INHALER IH PRN (18:36)
[2019-09-15] MEDS ORDERED: guaiFENesin 200 MG/10 ML 10 ML UNIT-DOSE CUPS PO PRN (18:50)
[2019-09-15] MEDS ORDERED: MAGNESIUM HYDROX 2400MG/30ML ORAL SUSPENSION 30 ML CUP PO PRN (18:50)
[2019-09-15] MEDS ORDERED: NICOTINE POLACRILEX 2 MG GUM BUC PRN (18:50)
[2019-09-15] MEDS ORDERED: ACETAMINOPHEN 325 MG TABLET (FP) PO PRN (18:50)
[2019-09-15] MEDS ORDERED: MENTHOL/PHENOL 1 EACH UD MM PRN (18:50)
[2019-09-15] MEDS ORDERED: MAGNESIUM CITRATE 300 ML BOTTLE PO PRN (18:50)
[2019-09-15] MEDS ORDERED: P-EPHED 60MG/TRIPROLIDI 2.5MG TABLET PO PRN (18:50)
[2019-09-15] MEDS ORDERED: hydrOXYzine PAMOATE 25 MG CAPSULE (FP) PO PRN (18:52)
[2019-09-15] MEDS ORDERED: AMMONIUM LACTATE 12% LOTION 225 GM BOTTLE TP PRN (19:25)
[2019-09-15] MEDS: ASPIRIN COATED 81 MG TABLET.EC PO SCH (20:20)
[2019-09-15] MEDS ORDERED: GABAPENTIN 400 MG CAPSULE (FP) PO ONE (21:00)
[2019-09-15] MEDS: ATORVASTATIN CA 40 MG TABLET (FP) PO SCH (21:24)
[2019-09-15] MEDS: THIAMINE HCL 100 MG TABLET (FP) PO SCH (21:25)
[2019-09-15] MEDS: MELATONIN 5 MG TABLETS PO PRN (21:25)
[2019-09-15] MEDS: BACITRACIN/POLYMYXIN B SULFATE 15 GM TUBE TP SCH (21:26)
[2019-09-15] MEDS: INSULIN SLIDING SCALE (NOVOLOG) 1 VIAL SQ SCH (21:26)
[2019-09-15] MEDS: INSULIN (LEVEMIR) 100 UNITS/ML UNITS SQ SCH (21:26)
[2019-09-15] MEDS: prednisoLONE ACETATE 1% OPHTH SUSP 5 ML BOTTLE OU SCH (21:27)
[2019-09-15] MEDS ORDERED: PATIENT'S OWN MEDICATION (NON-FORMULARY) (Sitagliptin Phos/Metformin Hcl [Janumet 50-1,000 PO SCH (22:00)
[2019-09-15] MEDS ORDERED: prednisoLONE ACETATE 1% OPHTH SUSP 5 ML BOTTLE OU SCH (22:00)
[2019-09-15] MEDS ORDERED: INSULIN LISPRO 8 UNIT SQ SCH (22:00)
[2019-09-15] MEDS ORDERED: PT OWN MED DRAWER 7, Y5N ONE (22:06)
[2019-09-16] MEDS: metFORMIN HCL 500 MG TABLET (FP) PO SCH ×2 (06:37→16:20)
[2019-09-16] MEDS: INSULIN SLIDING SCALE (NOVOLOG) 1 VIAL SQ SCH ×4 (06:40→21:25)
[2019-09-16] MEDS: IBUPROFEN 400 MG TABLET (FP) PO PRN (06:40)
[2019-09-16] MEDS: sitaGLIPtin PHOSPHATE 50 MG TABLET PO SCH ×2 (06:40→16:35)
--- NOTE | 2019-09-16 09:18 | CONSULT ---
[facility] Psychiatric Consult - Data Date of interview: 09/16/19 Admission source: [facility]/Probation Identifying data: Mr Bond is a 58 years old single Black male, unemployedreceiving SSI, sharing a bedroom apt via [employer] seeking detox treatment for alcohol and cocaine Substance Abuse History: Reports history of alcohol and cocaine use. Refer to addiction counselor's summary for further information Medical History: Significant for bronchial asthma, hypertension, dyslipidemia, type 2 diabetes mellitus, lanre right eye, history of surgery both eyesfor glaucoma Psychiatric History: Patient reports that his first psychiatric contact occured in the 's when he was taken to see a psychiatrist in [place], [place] for acting out including voicing suicidal ideations. He cannot tell much about that interaction but he was not prescribed medication. Later on, while in , he was admitted to [facility] for suicidal attempt. He was diagnosed with Bipolar Disorder and started on psychotropic medications. Reports multiple subsequent psychiatric hospitalizations including at [facility], [facility], [facility], [facility], [facility](defunct) and most recently from April-May 2019 at [facility] in [place] for depression and suicidal attempt. Told curriculum writer that he was dicharged on Prozac 40 mg/day, Depakote(unknown dose) and referred for aftercare to [facility] but he did not keep the appointment. [facility] [phone]. According to pharmacist, scripts for Prozac 60 mg/day, Abilify 5 mg/day, Remeron 15 mg/hs, Trazadone 100 mg/hs and Gabapetin 600 mg/tid were filled on 06/12/19. At present, denies experiencing psychotic, manic or depressive symptoms, S/H ideations. However, reports feeling angry, irritable and sleeping poorly Physical/Sexual Abuse/Trauma History: Did not address this topic due to patient' s limited cooperation Mental Status Exam - Mental Status Exam Alert and Oriented to: Time, Place, Person Cognitive Function: Fair Patient Appearance: Well Groomed Mood: Angry, Irritable Affect: Appropriate Speech Pattern: Clear Voice Loudness: Normal Thought Process: Intact, Goal Oriented Hallucinations: Denies Suicidal Ideation: Denies Homicidal Ideation: Denies Sleep: Poorly Appetite: Good Muscle strength/Tone: Normal Gait/Station: Other (uses a cane as ambulatory aid) Psychiatric Findings - Problem List ([place] 1, 2,3) (1) Bipolar disorder Current Visit: Yes Status: Chronic (2) Substance induced mood disorder Current Visit: Yes Status: Acute (3) Substance-induced sleep disorder Current Visit: Yes Status: Acute (4) Alcohol dependence Current Visit: Yes Status: Acute (5) Cocaine dependence Current Visit: Yes Status: Acute (6) Nicotine dependence Current Visit: Yes Status: Chronic (7) Asthma Current Visit: No Status: Chronic Qualifiers: Asthma severity: unspecified severity Asthma persistence: unspecified (8) DM (diabetes mellitus), type 2 Current Visit: No Status: Chronic Qualifiers: Diabetes mellitus long term care pharmacist insulin use: with long-term use Diabetes mellitus complication status: with neurologic complications Diabetes mellitus complication detail: with unspecified neuropathy Qualified Code(s): E11.40 - Type 2 diabetes mellitus with diabetic neuropathy, unspecified; Z79.4 - tank terminal gauger (current) use of insulin (9) Hyperlipidemia Current Visit: No Status: Chronic Qualifiers: Hyperlipidemia type: unspecified Qualified Code(s): E78.5 - Hyperlipidemia , unspecified (10) Hypertension Current Visit: No Status: Chronic Qualifiers: Hypertension type: essential hypertension Qualified Code(s): I10 - Essential (primary) hypertension (11) Peripheral neuropathy Current Visit: No Status: Chronic Qualifiers: Peripheral neuropathy type: polyneuropathy, unspecified Qualified Code(s): G62.9 - Polyneuropathy, unspecified (12) GERD (gastroesophageal reflux disease) Current Visit: No Status: Chronic Qualifiers: Esophagitis presence: esophagitis presence not specified Qualified Code(s) : K21.9 - Gastro-esophageal reflux disease without esophagitis (13) History of visual impairment Current Visit: No Status: Chronic Comment: States is legally blind (14) Glaucoma, both eyes Current Visit: Yes Status: Chronic - Initial Treatment Plan Initial Treatment Plan: 1) Resume Prozac 60 mg po daily, Abilify 5 mg po daily, Remeron 30 mg po HS and Trazadone 100 mg po HS. 2) Continue inpatient detoxification
[2019-09-16] MEDS: PRENATAL VITAMINS W/ FOLIC ACID TABLET (FP) PO SCH (10:17)
[2019-09-16] MEDS: prednisoLONE ACETATE 1% OPHTH SUSP 5 ML BOTTLE OU SCH ×2 (10:17→21:25)
[2019-09-16] MEDS: ASPIRIN COATED 81 MG TABLET.EC PO SCH (10:17)
[2019-09-16] MEDS: LISINOPRIL 10 MG TABLET (FP) PO SCH (10:17)
[2019-09-16] MEDS: GABAPENTIN 400 MG CAPSULE (FP) PO SCH ×3 (10:17→21:21)
[2019-09-16] MEDS: NICOTINE 14 MG/24 HOURS TOPICAL PATCH TD SCH (10:17)
[2019-09-16] MEDS: BACITRACIN/POLYMYXIN B SULFATE 15 GM TUBE TP SCH ×2 (10:18→21:25)
--- NOTE | 2019-09-16 11:27 | PN ---
[facility] Progress Note (SOAP) Subjective: Here for substance use treatment PMHx: pt here requesting rehab from etoh and cocaine use; reports relapse since previous admission at this facility etoh : beer 22 oz x 4 /day 4 x /week , denies tremors , blackouts or seizures , latest use last Saturday . PMHX : DM 1 , r eye blind , glaucoma PSHX : denies Psych : depression , suicide attempt April 2019 , denies current SI SHX : probation add'l 24 months Objective: 09/16/19 11:25 Vital Signs Period Temp Pulse Resp BP Sys/Day Pulse Ox Last 24 Hr 97 F-98.3 F 78-83 18-20 139-155/70-80 P/E General: No apparent distress HEENTM:normocpehlaic Lungs; clear Heart: s1 2 Neck: supple Assessment: substance use treatment DM2 09/16/19 11:26 Plan: continue treatment/car DM2-monitor BGM Reviewed home medications
[2019-09-16 11:45] LABS: HEMOGLOBIN 11.8 GM/dL (11.7-16.9); MCH 27.3 pg (25.7-33.7); MCHC 32.7 g/dl (32.0-35.9); MEAN CELL VOLUME 83.4 fl (80-96); MEAN PLT VOLUME 10.7 fl (7.5-11.1); PLATELET COUNT 169 K/MM3 (134-434); RBC 4.32 M/mm3 (4.00-5.60)
[2019-09-16 11:55] LABS: EPI CELLS 0.8 /HPF (0-5/HPF); HYALINE CASTS 1 /lpf (0-8); PH,URINE 5.5 (5.0-8.0); URINE APPEARANCE CLEAR; URINE BACTERIA 1.5 /hpf (NEGATIVE); URINE BILIRUBIN NEGATIVE (NEGATIVE); URINE COLOR YELLOW; URINE GLUCOSE (UA) 3+ (NEGATIVE); URINE KETONE NEGATIVE (NEGATIVE); URINE LEUK ESTERASE NEGATIVE (NEGATIVE); URINE NITRITE NEGATIVE (NEGATIVE); URINE PROTEIN 2+ (NEGATIVE); URINE RBC 1 /hpf (0-4); URINE UROBILINOGEN 0.2 mg/dL (0.2-1.0); URINE WBC 1 /hpf (0-5)
[2019-09-16] MEDS: FLUoxetine HCL 20 MG CAPSULE (FP) PO SCH (11:59)
[2019-09-16] MEDS: ARIPiprazole 5 MG TABLET (FP) PO SCH (11:59)
[2019-09-16 12:02] LABS: ALBUMIN 3.1 g/dl (3.4-5.0); BILIRUBIN,TOTAL 0.2 mg/dL (0.2-1); BLOOD UREA NITROGEN 15.7 mg/dL (7-18); CREATININE 1.1 mg/dL (0.55-1.3); TOT PROT 5.8 g/dl (6.4-8.2)
[2019-09-16] MEDS ORDERED: INSULIN (NOVOLOG) ASPART 100 UNITS/ML 10ML VIAL ONE (12:02)
[2019-09-16] MEDS: INSULIN (LEVEMIR) 100 UNITS/ML UNITS SQ SCH (21:20)
[2019-09-16] MEDS: ATORVASTATIN CA 40 MG TABLET (FP) PO SCH (21:21)
[2019-09-16] MEDS: MIRTAZAPINE 30 MG TABLET (FP) PO SCH (21:24)
[2019-09-16] MEDS: MELATONIN 5 MG TABLETS PO PRN (21:24)
[2019-09-16] MEDS: THIAMINE HCL 100 MG TABLET (FP) PO SCH (21:24)
[2019-09-16] MEDS: traZODone HCL 100 MG TABLET (FP) PO SCH (21:24)
[2019-09-17] MEDS: GABAPENTIN 400 MG CAPSULE (FP) PO SCH ×3 (06:17→21:29)
[2019-09-17] MEDS: metFORMIN HCL 500 MG TABLET (FP) PO SCH ×2 (07:03→16:57)
[2019-09-17] MEDS: sitaGLIPtin PHOSPHATE 50 MG TABLET PO SCH ×2 (07:03→16:57)
[2019-09-17] MEDS: INSULIN SLIDING SCALE (NOVOLOG) 1 VIAL SQ SCH ×3 (07:04→16:57)
[2019-09-17] MEDS ORDERED: INSULIN (NOVOLOG) ASPART 100 UNITS/ML 10ML VIAL ONE (07:04)
--- NOTE | 2019-09-17 10:13 | PN ---
[facility] Progress Note (SOAP) Subjective: patient with consistently elevated fingersticks, refusing metformin. Objective: P/E: General: no apparent distress HEENTM: normocephalic Lungs: clear Heart: s1 s2 Abd: +BS 09/17/19 10:12 Assessment: DM2, uncontrolled 09/17/19 10:12 Plan: slicing scale frequency and dose increased. Nightime levimir increased. Will continue to monitor.
[2019-09-17] MEDS: ARIPiprazole 5 MG TABLET (FP) PO SCH (10:39)
[2019-09-17] MEDS: ASPIRIN COATED 81 MG TABLET.EC PO SCH (10:40)
[2019-09-17] MEDS: NICOTINE 14 MG/24 HOURS TOPICAL PATCH TD SCH (10:40)
[2019-09-17] MEDS: prednisoLONE ACETATE 1% OPHTH SUSP 5 ML BOTTLE OU SCH ×2 (10:40→21:34)
[2019-09-17] MEDS: PRENATAL VITAMINS W/ FOLIC ACID TABLET (FP) PO SCH (10:40)
[2019-09-17] MEDS: BACITRACIN/POLYMYXIN B SULFATE 15 GM TUBE TP SCH ×2 (10:40→22:26)
[2019-09-17] MEDS: FLUoxetine HCL 20 MG CAPSULE (FP) PO SCH (10:40)
[2019-09-17] MEDS: LISINOPRIL 10 MG TABLET (FP) PO SCH (10:40)
[2019-09-17] MEDS ORDERED: PT OWN MED DRAWER 7, Y5N ONE (20:24)
[2019-09-17] MEDS: MIRTAZAPINE 30 MG TABLET (FP) PO SCH (21:29)
[2019-09-17] MEDS: traZODone HCL 100 MG TABLET (FP) PO SCH (21:30)
[2019-09-17] MEDS: IBUPROFEN 400 MG TABLET (FP) PO PRN (21:30)
[2019-09-17] MEDS: MELATONIN 5 MG TABLETS PO PRN (21:30)
[2019-09-17] MEDS: INSULIN (LEVEMIR) 100 UNITS/ML UNITS SQ SCH (21:31)
[2019-09-17] MEDS ORDERED: INSULIN (LEVEMIR) 100 UNITS/ML UNITS SQ SCH (22:00)
[2019-09-17] MEDS: ATORVASTATIN CA 40 MG TABLET (FP) PO SCH (22:26)
[2019-09-17] MEDS: THIAMINE HCL 100 MG TABLET (FP) PO SCH (22:27)
[2019-09-18] MEDS: GABAPENTIN 400 MG CAPSULE (FP) PO SCH ×3 (06:20→21:20)
[2019-09-18] MEDS ORDERED: INSULIN (NOVOLOG) ASPART 100 UNITS/ML 10ML VIAL ONE ×3 (06:48→16:44)
[2019-09-18] MEDS: metFORMIN HCL 500 MG TABLET (FP) PO SCH ×2 (06:52→16:42)
[2019-09-18] MEDS: sitaGLIPtin PHOSPHATE 50 MG TABLET PO SCH ×2 (06:52→16:42)
[2019-09-18] MEDS: INSULIN SLIDING SCALE (NOVOLOG) 1 VIAL SQ SCH ×3 (06:53→16:46)
[2019-09-18] MEDS: NICOTINE 14 MG/24 HOURS TOPICAL PATCH TD SCH (09:59)
[2019-09-18] MEDS: ASPIRIN COATED 81 MG TABLET.EC PO SCH (09:59)
[2019-09-18] MEDS: FLUoxetine HCL 20 MG CAPSULE (FP) PO SCH (09:59)
[2019-09-18] MEDS: PRENATAL VITAMINS W/ FOLIC ACID TABLET (FP) PO SCH (09:59)
[2019-09-18] MEDS: ARIPiprazole 5 MG TABLET (FP) PO SCH (09:59)
[2019-09-18] MEDS: BACITRACIN/POLYMYXIN B SULFATE 15 GM TUBE TP SCH ×2 (10:00→21:24)
[2019-09-18] MEDS: LISINOPRIL 10 MG TABLET (FP) PO SCH (10:03)
[2019-09-18] MEDS: prednisoLONE ACETATE 1% OPHTH SUSP 5 ML BOTTLE OU SCH ×2 (10:03→21:24)
[2019-09-18] MEDS ORDERED: PT OWN MED DRAWER 7, Y5N ONE (16:42)
[2019-09-18] MEDS: THIAMINE HCL 100 MG TABLET (FP) PO SCH (21:20)
[2019-09-18] MEDS: MELATONIN 5 MG TABLETS PO PRN (21:20)
[2019-09-18] MEDS: ATORVASTATIN CA 40 MG TABLET (FP) PO SCH (21:20)
[2019-09-18] MEDS: MIRTAZAPINE 30 MG TABLET (FP) PO SCH (21:20)
[2019-09-18] MEDS: traZODone HCL 100 MG TABLET (FP) PO SCH (21:20)
[2019-09-18] MEDS: INSULIN (LEVEMIR) 100 UNITS/ML UNITS SQ SCH (21:24)
[2019-09-19] MEDS ORDERED: PT OWN MED DRAWER 7, Y5N ONE (03:29)
[2019-09-19] MEDS: GABAPENTIN 400 MG CAPSULE (FP) PO SCH ×3 (06:19→21:24)
[2019-09-19] MEDS: INSULIN SLIDING SCALE (NOVOLOG) 1 VIAL SQ SCH ×3 (06:20→16:35)
[2019-09-19] MEDS: metFORMIN HCL 500 MG TABLET (FP) PO SCH ×2 (06:22→16:35)
[2019-09-19] MEDS: sitaGLIPtin PHOSPHATE 50 MG TABLET PO SCH ×2 (06:22→16:35)
[2019-09-19] MEDS ORDERED: INSULIN (NOVOLOG) ASPART 100 UNITS/ML 10ML VIAL ONE ×3 (06:48→16:31)
[2019-09-19] MEDS: FLUoxetine HCL 20 MG CAPSULE (FP) PO SCH (10:36)
[2019-09-19] MEDS: ASPIRIN COATED 81 MG TABLET.EC PO SCH (10:36)
[2019-09-19] MEDS: NICOTINE 14 MG/24 HOURS TOPICAL PATCH TD SCH (10:36)
[2019-09-19] MEDS: ARIPiprazole 5 MG TABLET (FP) PO SCH (10:36)
[2019-09-19] MEDS: LISINOPRIL 10 MG TABLET (FP) PO SCH (10:36)
[2019-09-19] MEDS: PRENATAL VITAMINS W/ FOLIC ACID TABLET (FP) PO SCH (10:37)
[2019-09-19] MEDS: BACITRACIN/POLYMYXIN B SULFATE 15 GM TUBE TP SCH ×2 (10:38→21:26)
[2019-09-19] MEDS: prednisoLONE ACETATE 1% OPHTH SUSP 5 ML BOTTLE OU SCH ×2 (10:38→21:26)
[2019-09-19] MEDS: MELATONIN 5 MG TABLETS PO PRN (21:25)
[2019-09-19] MEDS: traZODone HCL 100 MG TABLET (FP) PO SCH (21:25)
[2019-09-19] MEDS: INSULIN (LEVEMIR) 100 UNITS/ML UNITS SQ SCH (21:25)
[2019-09-19] MEDS: THIAMINE HCL 100 MG TABLET (FP) PO SCH (21:25)
[2019-09-19] MEDS: ATORVASTATIN CA 40 MG TABLET (FP) PO SCH (21:25)
[2019-09-19] MEDS: MIRTAZAPINE 30 MG TABLET (FP) PO SCH (21:25)
[2019-09-20] MEDS: GABAPENTIN 400 MG CAPSULE (FP) PO SCH ×3 (06:18→21:20)
[2019-09-20] MEDS: sitaGLIPtin PHOSPHATE 50 MG TABLET PO SCH ×2 (06:19→16:25)
[2019-09-20] MEDS: metFORMIN HCL 500 MG TABLET (FP) PO SCH ×2 (06:19→16:25)
[2019-09-20] MEDS ORDERED: INSULIN (NOVOLOG) ASPART 100 UNITS/ML 10ML VIAL ONE ×2 (06:20→11:44)
[2019-09-20] MEDS: INSULIN SLIDING SCALE (NOVOLOG) 1 VIAL SQ SCH ×3 (06:21→16:27)
[2019-09-20] MEDS: LOPERAMIDE HCL 2 MG CAPSULE PO PRN (10:48)
[2019-09-20] MEDS: FLUoxetine HCL 20 MG CAPSULE (FP) PO SCH (10:48)
[2019-09-20] MEDS: ARIPiprazole 5 MG TABLET (FP) PO SCH (10:48)
[2019-09-20] MEDS: BACITRACIN/POLYMYXIN B SULFATE 15 GM TUBE TP SCH ×2 (10:48→21:20)
[2019-09-20] MEDS: NICOTINE 14 MG/24 HOURS TOPICAL PATCH TD SCH (10:48)
[2019-09-20] MEDS: prednisoLONE ACETATE 1% OPHTH SUSP 5 ML BOTTLE OU SCH ×2 (10:48→21:20)
[2019-09-20] MEDS: PRENATAL VITAMINS W/ FOLIC ACID TABLET (FP) PO SCH (10:48)
[2019-09-20] MEDS: ASPIRIN COATED 81 MG TABLET.EC PO SCH (10:48)
[2019-09-20] MEDS: LISINOPRIL 10 MG TABLET (FP) PO SCH (10:51)
[2019-09-20] MEDS: MIRTAZAPINE 30 MG TABLET (FP) PO SCH (21:19)
[2019-09-20] MEDS: ATORVASTATIN CA 40 MG TABLET (FP) PO SCH (21:20)
[2019-09-20] MEDS: traZODone HCL 100 MG TABLET (FP) PO SCH (21:20)
[2019-09-20] MEDS: MELATONIN 5 MG TABLETS PO PRN (21:20)
[2019-09-20] MEDS: THIAMINE HCL 100 MG TABLET (FP) PO SCH (21:20)
[2019-09-20] MEDS: INSULIN (LEVEMIR) 100 UNITS/ML UNITS SQ SCH (21:22)
[2019-09-20] MEDS ORDERED: INSULIN (LEVEMIR) 100 UNITS/ML UNITS SQ ONE (21:31)
[2019-09-21] MEDS: LOPERAMIDE HCL 2 MG CAPSULE PO PRN (03:39)
[2019-09-21] MEDS: GABAPENTIN 400 MG CAPSULE (FP) PO SCH ×3 (06:10→21:12)
[2019-09-21] MEDS ORDERED: INSULIN (NOVOLOG) ASPART 100 UNITS/ML 10ML VIAL ONE ×3 (07:06→16:58)
[2019-09-21] MEDS: sitaGLIPtin PHOSPHATE 50 MG TABLET PO SCH ×2 (07:07→16:57)
[2019-09-21] MEDS: INSULIN SLIDING SCALE (NOVOLOG) 1 VIAL SQ SCH ×3 (07:07→16:57)
[2019-09-21] MEDS: metFORMIN HCL 500 MG TABLET (FP) PO SCH ×2 (07:07→16:56)
[2019-09-21] MEDS ORDERED: PT OWN MED DRAWER 7, Y5N ONE ×2 (08:50→10:01)
[2019-09-21] MEDS: ARIPiprazole 5 MG TABLET (FP) PO SCH (09:58)
[2019-09-21] MEDS: ASPIRIN COATED 81 MG TABLET.EC PO SCH (09:58)
[2019-09-21] MEDS: LISINOPRIL 10 MG TABLET (FP) PO SCH (09:58)
[2019-09-21] MEDS: NICOTINE 14 MG/24 HOURS TOPICAL PATCH TD SCH (09:58)
[2019-09-21] MEDS: PRENATAL VITAMINS W/ FOLIC ACID TABLET (FP) PO SCH (09:58)
[2019-09-21] MEDS: prednisoLONE ACETATE 1% OPHTH SUSP 5 ML BOTTLE OU SCH ×2 (09:59→21:14)
[2019-09-21] MEDS: BACITRACIN/POLYMYXIN B SULFATE 15 GM TUBE TP SCH ×2 (09:59→21:13)
[2019-09-21] MEDS: FLUoxetine HCL 20 MG CAPSULE (FP) PO SCH (10:00)
[2019-09-21] MEDS: ATORVASTATIN CA 40 MG TABLET (FP) PO SCH (21:12)
[2019-09-21] MEDS: traZODone HCL 100 MG TABLET (FP) PO SCH (21:13)
[2019-09-21] MEDS: MIRTAZAPINE 30 MG TABLET (FP) PO SCH (21:15)
[2019-09-21] MEDS: THIAMINE HCL 100 MG TABLET (FP) PO SCH (21:16)
[2019-09-21] MEDS: INSULIN (LEVEMIR) 100 UNITS/ML UNITS SQ SCH (21:16)
[2019-09-21] MEDS: HYDROCORTISONE 2.5% TOPICAL CREAM 30 GM TUBE PR SCH (21:18)
[2019-09-22] MEDS: GABAPENTIN 400 MG CAPSULE (FP) PO SCH ×3 (06:01→21:07)
[2019-09-22] MEDS ORDERED: INSULIN (NOVOLOG) ASPART 100 UNITS/ML 10ML VIAL ONE ×3 (07:45→16:24)
[2019-09-22] MEDS: metFORMIN HCL 500 MG TABLET (FP) PO SCH ×2 (07:46→16:26)
[2019-09-22] MEDS: INSULIN SLIDING SCALE (NOVOLOG) 1 VIAL SQ SCH ×3 (07:46→16:29)
[2019-09-22] MEDS: sitaGLIPtin PHOSPHATE 50 MG TABLET PO SCH ×2 (07:47→16:26)
[2019-09-22] MEDS: FLUoxetine HCL 20 MG CAPSULE (FP) PO SCH (09:40)
[2019-09-22] MEDS: PRENATAL VITAMINS W/ FOLIC ACID TABLET (FP) PO SCH (09:40)
[2019-09-22] MEDS: ASPIRIN COATED 81 MG TABLET.EC PO SCH (09:40)
[2019-09-22] MEDS: ARIPiprazole 5 MG TABLET (FP) PO SCH (09:40)
[2019-09-22] MEDS: NICOTINE 14 MG/24 HOURS TOPICAL PATCH TD SCH (09:40)
[2019-09-22] MEDS: LISINOPRIL 10 MG TABLET (FP) PO SCH (09:40)
[2019-09-22] MEDS: prednisoLONE ACETATE 1% OPHTH SUSP 5 ML BOTTLE OU SCH ×2 (09:41→21:08)
[2019-09-22] MEDS ORDERED: PT OWN MED DRAWER 7, Y5N ONE ×2 (09:44→16:26)
[2019-09-22] MEDS: BACITRACIN/POLYMYXIN B SULFATE 15 GM TUBE TP SCH ×2 (10:43→21:08)
[2019-09-22] MEDS: MIRTAZAPINE 30 MG TABLET (FP) PO SCH (21:07)
[2019-09-22] MEDS: ATORVASTATIN CA 40 MG TABLET (FP) PO SCH (21:07)
[2019-09-22] MEDS: HYDROCORTISONE 2.5% TOPICAL CREAM 30 GM TUBE PR SCH (21:07)
[2019-09-22] MEDS: MELATONIN 5 MG TABLETS PO PRN (21:07)
[2019-09-22] MEDS: THIAMINE HCL 100 MG TABLET (FP) PO SCH (21:07)
[2019-09-22] MEDS: traZODone HCL 100 MG TABLET (FP) PO SCH (21:08)
[2019-09-22] MEDS: INSULIN (LEVEMIR) 100 UNITS/ML UNITS SQ SCH (21:08)
[2019-09-22] MEDS ORDERED: INSULIN (LEVEMIR) 100 UNITS/ML UNITS SQ ONE (22:16)
[2019-09-23] MEDS: metFORMIN HCL 500 MG TABLET (FP) PO SCH ×2 (06:15→16:37)
[2019-09-23] MEDS: GABAPENTIN 400 MG CAPSULE (FP) PO SCH ×3 (06:15→21:10)
[2019-09-23] MEDS: sitaGLIPtin PHOSPHATE 50 MG TABLET PO SCH ×2 (06:16→16:38)
[2019-09-23] MEDS: INSULIN SLIDING SCALE (NOVOLOG) 1 VIAL SQ SCH ×3 (06:17→16:38)
[2019-09-23] MEDS: IBUPROFEN 400 MG TABLET (FP) PO PRN (06:18)
[2019-09-23] MEDS ORDERED: PT OWN MED DRAWER 7, Y5N ONE (08:59)
[2019-09-23] MEDS: LISINOPRIL 10 MG TABLET (FP) PO SCH (09:52)
[2019-09-23] MEDS: FLUoxetine HCL 20 MG CAPSULE (FP) PO SCH (09:52)
[2019-09-23] MEDS: PRENATAL VITAMINS W/ FOLIC ACID TABLET (FP) PO SCH (09:52)
[2019-09-23] MEDS: ARIPiprazole 5 MG TABLET (FP) PO SCH (09:52)
[2019-09-23] MEDS: ASPIRIN COATED 81 MG TABLET.EC PO SCH (09:52)
[2019-09-23] MEDS: NICOTINE 14 MG/24 HOURS TOPICAL PATCH TD SCH (09:52)
[2019-09-23] MEDS: prednisoLONE ACETATE 1% OPHTH SUSP 5 ML BOTTLE OU SCH ×2 (09:53→21:11)
[2019-09-23] MEDS: BACITRACIN/POLYMYXIN B SULFATE 15 GM TUBE TP SCH ×2 (09:55→21:11)
[2019-09-23] MEDS ORDERED: INSULIN (NOVOLOG) ASPART 100 UNITS/ML 10ML VIAL ONE (11:46)
[2019-09-23] MEDS: traZODone HCL 100 MG TABLET (FP) PO SCH (21:10)
[2019-09-23] MEDS: HYDROCORTISONE 2.5% TOPICAL CREAM 30 GM TUBE PR SCH (21:10)
[2019-09-23] MEDS: MIRTAZAPINE 30 MG TABLET (FP) PO SCH (21:10)
[2019-09-23] MEDS: INSULIN (LEVEMIR) 100 UNITS/ML UNITS SQ SCH (21:10)
[2019-09-23] MEDS: THIAMINE HCL 100 MG TABLET (FP) PO SCH (21:10)
[2019-09-23] MEDS: ATORVASTATIN CA 40 MG TABLET (FP) PO SCH (21:10)
[2019-09-23] MEDS: MELATONIN 5 MG TABLETS PO PRN (21:11)
[2019-09-24] MEDS ORDERED: PT OWN MED DRAWER 7, Y5N ONE (04:23)
[2019-09-24] MEDS: GABAPENTIN 400 MG CAPSULE (FP) PO SCH ×3 (06:26→21:28)
[2019-09-24] MEDS: metFORMIN HCL 500 MG TABLET (FP) PO SCH ×2 (06:27→16:25)
[2019-09-24] MEDS: sitaGLIPtin PHOSPHATE 50 MG TABLET PO SCH ×2 (06:28→16:25)
[2019-09-24] MEDS: INSULIN SLIDING SCALE (NOVOLOG) 1 VIAL SQ SCH ×3 (06:28→16:26)
[2019-09-24] MEDS ORDERED: INSULIN (NOVOLOG) ASPART 100 UNITS/ML 10ML VIAL ONE ×3 (06:42→16:23)
[2019-09-24] MEDS: PRENATAL VITAMINS W/ FOLIC ACID TABLET (FP) PO SCH (09:48)
[2019-09-24] MEDS: ASPIRIN COATED 81 MG TABLET.EC PO SCH (09:48)
[2019-09-24] MEDS: ARIPiprazole 5 MG TABLET (FP) PO SCH (09:48)
[2019-09-24] MEDS: LISINOPRIL 10 MG TABLET (FP) PO SCH (09:48)
[2019-09-24] MEDS: prednisoLONE ACETATE 1% OPHTH SUSP 5 ML BOTTLE OU SCH ×2 (09:49→21:30)
[2019-09-24] MEDS: FLUoxetine HCL 20 MG CAPSULE (FP) PO SCH (09:49)
[2019-09-24] MEDS: NICOTINE 14 MG/24 HOURS TOPICAL PATCH TD SCH (09:50)
[2019-09-24] MEDS: BACITRACIN/POLYMYXIN B SULFATE 15 GM TUBE TP SCH ×2 (09:50→21:30)
[2019-09-24] MEDS: ATORVASTATIN CA 40 MG TABLET (FP) PO SCH (21:28)
[2019-09-24] MEDS: MIRTAZAPINE 30 MG TABLET (FP) PO SCH (21:28)
[2019-09-24] MEDS: MELATONIN 5 MG TABLETS PO PRN (21:28)
[2019-09-24] MEDS: THIAMINE HCL 100 MG TABLET (FP) PO SCH (21:28)
[2019-09-24] MEDS: traZODone HCL 100 MG TABLET (FP) PO SCH (21:28)
[2019-09-24] MEDS: HYDROCORTISONE 2.5% TOPICAL CREAM 30 GM TUBE PR SCH (21:28)
[2019-09-24] MEDS: INSULIN (LEVEMIR) 100 UNITS/ML UNITS SQ SCH (21:29)
[2019-09-25] MEDS: GABAPENTIN 400 MG CAPSULE (FP) PO SCH ×3 (06:01→21:08)
[2019-09-25] MEDS ORDERED: INSULIN (NOVOLOG) ASPART 100 UNITS/ML 10ML VIAL ONE ×2 (06:54→12:01)
[2019-09-25] MEDS: sitaGLIPtin PHOSPHATE 50 MG TABLET PO SCH ×2 (06:58→16:32)
[2019-09-25] MEDS: INSULIN SLIDING SCALE (NOVOLOG) 1 VIAL SQ SCH ×3 (06:58→16:32)
[2019-09-25] MEDS: metFORMIN HCL 500 MG TABLET (FP) PO SCH ×2 (06:58→16:32)
[2019-09-25] MEDS: ARIPiprazole 5 MG TABLET (FP) PO SCH (10:03)
[2019-09-25] MEDS: ASPIRIN COATED 81 MG TABLET.EC PO SCH (10:03)
[2019-09-25] MEDS: BACITRACIN/POLYMYXIN B SULFATE 15 GM TUBE TP SCH ×2 (10:03→21:09)
[2019-09-25] MEDS: FLUoxetine HCL 20 MG CAPSULE (FP) PO SCH (10:03)
[2019-09-25] MEDS: LISINOPRIL 10 MG TABLET (FP) PO SCH (10:03)
[2019-09-25] MEDS: NICOTINE 14 MG/24 HOURS TOPICAL PATCH TD SCH (10:03)
[2019-09-25] MEDS: PRENATAL VITAMINS W/ FOLIC ACID TABLET (FP) PO SCH (10:03)
[2019-09-25] MEDS: prednisoLONE ACETATE 1% OPHTH SUSP 5 ML BOTTLE OU SCH ×2 (10:05→21:09)
[2019-09-25] MEDS ORDERED: PT OWN MED DRAWER 7, Y5N ONE (10:07)
[2019-09-25] MEDS: traZODone HCL 100 MG TABLET (FP) PO SCH (21:08)
[2019-09-25] MEDS: MIRTAZAPINE 30 MG TABLET (FP) PO SCH (21:08)
[2019-09-25] MEDS: ATORVASTATIN CA 40 MG TABLET (FP) PO SCH (21:08)
[2019-09-25] MEDS: MELATONIN 5 MG TABLETS PO PRN (21:08)
[2019-09-25] MEDS: THIAMINE HCL 100 MG TABLET (FP) PO SCH (21:08)
[2019-09-25] MEDS: INSULIN (LEVEMIR) 100 UNITS/ML UNITS SQ SCH (21:08)
[2019-09-25] MEDS: HYDROCORTISONE 2.5% TOPICAL CREAM 30 GM TUBE PR SCH (21:09)
[2019-09-25] MEDS ORDERED: INSULIN (LEVEMIR) 100 UNITS/ML UNITS SQ ONE (22:06)
[2019-09-26] MEDS: GABAPENTIN 400 MG CAPSULE (FP) PO SCH ×3 (06:09→21:27)
[2019-09-26] MEDS ORDERED: INSULIN (NOVOLOG) ASPART 100 UNITS/ML 10ML VIAL ONE ×3 (07:01→16:48)
[2019-09-26] MEDS: metFORMIN HCL 500 MG TABLET (FP) PO SCH ×2 (07:02→16:50)
[2019-09-26] MEDS: sitaGLIPtin PHOSPHATE 50 MG TABLET PO SCH ×2 (07:02→16:50)
[2019-09-26] MEDS: INSULIN SLIDING SCALE (NOVOLOG) 1 VIAL SQ SCH ×3 (07:02→16:50)
[2019-09-26] MEDS: LISINOPRIL 10 MG TABLET (FP) PO SCH (10:00)
[2019-09-26] MEDS: FLUoxetine HCL 20 MG CAPSULE (FP) PO SCH (10:00)
[2019-09-26] MEDS: NICOTINE 14 MG/24 HOURS TOPICAL PATCH TD SCH (10:00)
[2019-09-26] MEDS: prednisoLONE ACETATE 1% OPHTH SUSP 5 ML BOTTLE OU SCH ×2 (10:00→23:02)
[2019-09-26] MEDS: ARIPiprazole 5 MG TABLET (FP) PO SCH (10:00)
[2019-09-26] MEDS: ASPIRIN COATED 81 MG TABLET.EC PO SCH (10:00)
[2019-09-26] MEDS: PRENATAL VITAMINS W/ FOLIC ACID TABLET (FP) PO SCH (10:00)
[2019-09-26] MEDS: BACITRACIN/POLYMYXIN B SULFATE 15 GM TUBE TP SCH ×2 (10:02→22:56)
[2019-09-26] MEDS: IBUPROFEN 400 MG TABLET (FP) PO PRN (14:42)
[2019-09-26] MEDS ORDERED: PT OWN MED DRAWER 7, Y5N ONE (19:15)
[2019-09-26] MEDS: HYDROCORTISONE 2.5% TOPICAL CREAM 30 GM TUBE PR SCH (21:25)
[2019-09-26] MEDS: THIAMINE HCL 100 MG TABLET (FP) PO SCH (21:26)
[2019-09-26] MEDS: ATORVASTATIN CA 40 MG TABLET (FP) PO SCH (21:26)
[2019-09-26] MEDS: traZODone HCL 100 MG TABLET (FP) PO SCH (21:27)
[2019-09-26] MEDS: MIRTAZAPINE 30 MG TABLET (FP) PO SCH (21:27)
[2019-09-26] MEDS: INSULIN (LEVEMIR) 100 UNITS/ML UNITS SQ SCH (21:30)
[2019-09-27] MEDS: GABAPENTIN 400 MG CAPSULE (FP) PO SCH ×3 (06:06→21:43)
[2019-09-27] MEDS: metFORMIN HCL 500 MG TABLET (FP) PO SCH ×2 (07:08→17:01)
[2019-09-27] MEDS: sitaGLIPtin PHOSPHATE 50 MG TABLET PO SCH ×2 (07:08→17:00)
[2019-09-27] MEDS: INSULIN SLIDING SCALE (NOVOLOG) 1 VIAL SQ SCH ×3 (07:09→17:04)
[2019-09-27] MEDS ORDERED: INSULIN (NOVOLOG) ASPART 100 UNITS/ML 10ML VIAL ONE ×3 (07:09→17:03)
[2019-09-27] MEDS: ASPIRIN COATED 81 MG TABLET.EC PO SCH (09:41)
[2019-09-27] MEDS: PRENATAL VITAMINS W/ FOLIC ACID TABLET (FP) PO SCH (09:41)
[2019-09-27] MEDS: ARIPiprazole 5 MG TABLET (FP) PO SCH (09:41)
[2019-09-27] MEDS: FLUoxetine HCL 20 MG CAPSULE (FP) PO SCH (09:41)
[2019-09-27] MEDS: NICOTINE 14 MG/24 HOURS TOPICAL PATCH TD SCH (09:41)
[2019-09-27] MEDS: BACITRACIN/POLYMYXIN B SULFATE 15 GM TUBE TP SCH ×2 (09:41→21:46)
[2019-09-27] MEDS: LISINOPRIL 10 MG TABLET (FP) PO SCH (09:42)
[2019-09-27] MEDS: prednisoLONE ACETATE 1% OPHTH SUSP 5 ML BOTTLE OU SCH ×2 (09:42→21:42)
[2019-09-27] MEDS: IBUPROFEN 400 MG TABLET (FP) PO PRN (17:05)
[2019-09-27] MEDS: MAG HYDROX/AL HYDROX/SIMETH 30 ML UNIT-DOSE CUP PO PRN (20:28)
[2019-09-27] MEDS: HYDROCORTISONE 2.5% TOPICAL CREAM 30 GM TUBE PR SCH (21:34)
[2019-09-27] MEDS: traZODone HCL 100 MG TABLET (FP) PO SCH (21:34)
[2019-09-27] MEDS ORDERED: INSULIN (LEVEMIR) 100 UNITS/ML UNITS SQ ONE (21:40)
[2019-09-27] MEDS: MELATONIN 5 MG TABLETS PO PRN (21:41)
[2019-09-27] MEDS: INSULIN (LEVEMIR) 100 UNITS/ML UNITS SQ SCH (21:41)
[2019-09-27] MEDS: THIAMINE HCL 100 MG TABLET (FP) PO SCH (21:45)
[2019-09-27] MEDS: MIRTAZAPINE 30 MG TABLET (FP) PO SCH (21:46)
[2019-09-27] MEDS: ATORVASTATIN CA 40 MG TABLET (FP) PO SCH (21:47)
[2019-09-28] MEDS: GABAPENTIN 400 MG CAPSULE (FP) PO SCH ×3 (06:05→21:19)
[2019-09-28] MEDS: sitaGLIPtin PHOSPHATE 50 MG TABLET PO SCH ×2 (06:06→16:51)
[2019-09-28] MEDS: metFORMIN HCL 500 MG TABLET (FP) PO SCH ×2 (06:06→16:50)
[2019-09-28] MEDS: INSULIN SLIDING SCALE (NOVOLOG) 1 VIAL SQ SCH ×3 (06:08→16:57)
[2019-09-28] MEDS ORDERED: INSULIN (NOVOLOG) ASPART 100 UNITS/ML 10ML VIAL ONE ×3 (06:37→21:44)
[2019-09-28] MEDS: PRENATAL VITAMINS W/ FOLIC ACID TABLET (FP) PO SCH (09:44)
[2019-09-28] MEDS: NICOTINE 14 MG/24 HOURS TOPICAL PATCH TD SCH (09:45)
[2019-09-28] MEDS: FLUoxetine HCL 20 MG CAPSULE (FP) PO SCH (09:45)
[2019-09-28] MEDS: BACITRACIN/POLYMYXIN B SULFATE 15 GM TUBE TP SCH ×2 (09:45→21:21)
[2019-09-28] MEDS: ASPIRIN COATED 81 MG TABLET.EC PO SCH (09:45)
[2019-09-28] MEDS: LISINOPRIL 10 MG TABLET (FP) PO SCH (09:45)
[2019-09-28] MEDS: prednisoLONE ACETATE 1% OPHTH SUSP 5 ML BOTTLE OU SCH ×2 (09:45→21:21)
[2019-09-28] MEDS: ARIPiprazole 5 MG TABLET (FP) PO SCH (09:45)
[2019-09-28] MEDS ORDERED: diphenhydrAMINE HCL 50 MG CAPSULE PO ONE (13:45)
[2019-09-28] MEDS: IBUPROFEN 400 MG TABLET (FP) PO PRN (16:56)
[2019-09-28] MEDS: MIRTAZAPINE 30 MG TABLET (FP) PO SCH (21:20)
[2019-09-28] MEDS: ATORVASTATIN CA 40 MG TABLET (FP) PO SCH (21:20)
[2019-09-28] MEDS: traZODone HCL 100 MG TABLET (FP) PO SCH (21:20)
[2019-09-28] MEDS: MELATONIN 5 MG TABLETS PO PRN (21:20)
[2019-09-28] MEDS: THIAMINE HCL 100 MG TABLET (FP) PO SCH (21:20)
[2019-09-28] MEDS: INSULIN (LEVEMIR) 100 UNITS/ML UNITS SQ SCH (21:21)
[2019-09-28] MEDS: HYDROCORTISONE 2.5% TOPICAL CREAM 30 GM TUBE PR SCH (21:21)
[2019-09-28] MEDS ORDERED: INSULIN (LEVEMIR) 100 UNITS/ML UNITS SQ ONE (21:44)
[2019-09-29] MEDS: GABAPENTIN 400 MG CAPSULE (FP) PO SCH ×3 (05:34→21:15)
[2019-09-29] MEDS: metFORMIN HCL 500 MG TABLET (FP) PO SCH ×2 (06:07→16:25)
[2019-09-29] MEDS: sitaGLIPtin PHOSPHATE 50 MG TABLET PO SCH ×2 (06:07→16:26)
[2019-09-29] MEDS: INSULIN SLIDING SCALE (NOVOLOG) 1 VIAL SQ SCH ×3 (06:07→16:29)
[2019-09-29] MEDS: FLUoxetine HCL 20 MG CAPSULE (FP) PO SCH (09:30)
[2019-09-29] MEDS: ASPIRIN COATED 81 MG TABLET.EC PO SCH (09:30)
[2019-09-29] MEDS: LISINOPRIL 10 MG TABLET (FP) PO SCH (09:30)
[2019-09-29] MEDS: NICOTINE 14 MG/24 HOURS TOPICAL PATCH TD SCH (09:30)
[2019-09-29] MEDS: ARIPiprazole 5 MG TABLET (FP) PO SCH (09:30)
[2019-09-29] MEDS: PRENATAL VITAMINS W/ FOLIC ACID TABLET (FP) PO SCH (09:30)
[2019-09-29] MEDS: prednisoLONE ACETATE 1% OPHTH SUSP 5 ML BOTTLE OU SCH ×2 (09:31→21:17)
[2019-09-29] MEDS: BACITRACIN/POLYMYXIN B SULFATE 15 GM TUBE TP SCH ×2 (09:31→21:18)
[2019-09-29] MEDS ORDERED: INSULIN (NOVOLOG) ASPART 100 UNITS/ML 10ML VIAL ONE (11:52)
[2019-09-29] MEDS: MELATONIN 5 MG TABLETS PO PRN (21:15)
[2019-09-29] MEDS: THIAMINE HCL 100 MG TABLET (FP) PO SCH (21:15)
[2019-09-29] MEDS: traZODone HCL 100 MG TABLET (FP) PO SCH (21:15)
[2019-09-29] MEDS: HYDROCORTISONE 2.5% TOPICAL CREAM 30 GM TUBE PR SCH (21:16)
[2019-09-29] MEDS: MIRTAZAPINE 30 MG TABLET (FP) PO SCH (21:16)
[2019-09-29] MEDS: ATORVASTATIN CA 40 MG TABLET (FP) PO SCH (21:17)
[2019-09-29] MEDS: INSULIN (LEVEMIR) 100 UNITS/ML UNITS SQ SCH (21:18)
[2019-09-30] MEDS: metFORMIN HCL 500 MG TABLET (FP) PO SCH ×2 (06:10→16:42)
[2019-09-30] MEDS ORDERED: INSULIN (NOVOLOG) ASPART 100 UNITS/ML 10ML VIAL ONE ×4 (06:10→21:42)
[2019-09-30] MEDS: GABAPENTIN 400 MG CAPSULE (FP) PO SCH ×3 (06:10→21:20)
[2019-09-30] MEDS: sitaGLIPtin PHOSPHATE 50 MG TABLET PO SCH ×2 (06:11→16:42)
[2019-09-30] MEDS: INSULIN SLIDING SCALE (NOVOLOG) 1 VIAL SQ SCH ×3 (06:22→16:42)
[2019-09-30] MEDS: FLUoxetine HCL 20 MG CAPSULE (FP) PO SCH (09:44)
[2019-09-30] MEDS: ARIPiprazole 5 MG TABLET (FP) PO SCH (09:44)
[2019-09-30] MEDS: BACITRACIN/POLYMYXIN B SULFATE 15 GM TUBE TP SCH ×2 (09:45→21:21)
[2019-09-30] MEDS: LISINOPRIL 10 MG TABLET (FP) PO SCH (09:45)
[2019-09-30] MEDS: ASPIRIN COATED 81 MG TABLET.EC PO SCH (09:45)
[2019-09-30] MEDS: PRENATAL VITAMINS W/ FOLIC ACID TABLET (FP) PO SCH (09:45)
[2019-09-30] MEDS: NICOTINE 14 MG/24 HOURS TOPICAL PATCH TD SCH (09:45)
[2019-09-30] MEDS: prednisoLONE ACETATE 1% OPHTH SUSP 5 ML BOTTLE OU SCH ×2 (09:45→21:22)
[2019-09-30] MEDS: INSULIN (LEVEMIR) 100 UNITS/ML UNITS SQ SCH (21:01)
[2019-09-30] MEDS: ATORVASTATIN CA 40 MG TABLET (FP) PO SCH (21:20)
[2019-09-30] MEDS: THIAMINE HCL 100 MG TABLET (FP) PO SCH (21:20)
[2019-09-30] MEDS: MIRTAZAPINE 30 MG TABLET (FP) PO SCH (21:20)
[2019-09-30] MEDS: traZODone HCL 100 MG TABLET (FP) PO SCH (21:20)
[2019-09-30] MEDS: HYDROCORTISONE 2.5% TOPICAL CREAM 30 GM TUBE PR SCH (21:21)
[2019-09-30] MEDS: MELATONIN 5 MG TABLETS PO PRN (21:21)
[2019-10-01] MEDS: GABAPENTIN 400 MG CAPSULE (FP) PO SCH ×3 (06:16→21:13)
[2019-10-01] MEDS ORDERED: INSULIN (NOVOLOG) ASPART 100 UNITS/ML 10ML VIAL ONE ×3 (06:20→16:58)
[2019-10-01] MEDS: metFORMIN HCL 500 MG TABLET (FP) PO SCH ×2 (06:43→16:59)
[2019-10-01] MEDS: INSULIN SLIDING SCALE (NOVOLOG) 1 VIAL SQ SCH ×3 (06:43→16:59)
[2019-10-01] MEDS: sitaGLIPtin PHOSPHATE 50 MG TABLET PO SCH ×2 (06:43→16:59)
[2019-10-01] MEDS: LISINOPRIL 10 MG TABLET (FP) PO SCH (09:39)
[2019-10-01] MEDS: prednisoLONE ACETATE 1% OPHTH SUSP 5 ML BOTTLE OU SCH ×2 (09:39→21:16)
[2019-10-01] MEDS: FLUoxetine HCL 20 MG CAPSULE (FP) PO SCH (09:39)
[2019-10-01] MEDS: NICOTINE 14 MG/24 HOURS TOPICAL PATCH TD SCH (09:39)
[2019-10-01] MEDS: PRENATAL VITAMINS W/ FOLIC ACID TABLET (FP) PO SCH (09:39)
[2019-10-01] MEDS: ARIPiprazole 5 MG TABLET (FP) PO SCH (09:39)
[2019-10-01] MEDS: ASPIRIN COATED 81 MG TABLET.EC PO SCH (09:39)
[2019-10-01] MEDS: BACITRACIN/POLYMYXIN B SULFATE 15 GM TUBE TP SCH ×2 (09:40→21:15)
[2019-10-01] MEDS: IBUPROFEN 400 MG TABLET (FP) PO PRN (09:41)
[2019-10-01] MEDS: PANTOPRAZOLE 40 MG TABLET (FP) PO SCH (10:54)
[2019-10-01] MEDS: NYSTATIN 500,000 UNITS/5 ML SUSPENSION PO SCH ×2 (13:55→21:13)
--- NOTE | 2019-10-01 14:17 | PN ---
[facility] Progress Note (SOAP) Subjective: Patient reporting that he feels like food is getting stuck in his esophagus. PMHx of diabetes, GERD, last HIV test 6 months ago, denies risk factors. Objective: 10/01/19 14:17 CBC, BMP 09/16/19 08:10 09/16/19 08:10 Vital Signs Period Temp Pulse Resp BP Sys/Day Pulse Ox Last 24 Hr 97.9 F 79-90 18-20 141-153/66-80 General: no apparent distress HEENTM: mouth-clear, pharynx-clear Neck_ supple, thyroid in good position ABD: +BS Assessment: GERD Thrush 10/01/19 14:18 Plan: Protonix ordered Nystatin S & S ordered HIV test ordered.
[2019-10-01] MEDS ORDERED: PT OWN MED DRAWER 7, Y5N ONE (21:12)
[2019-10-01] MEDS: traZODone HCL 100 MG TABLET (FP) PO SCH (21:13)
[2019-10-01] MEDS: THIAMINE HCL 100 MG TABLET (FP) PO SCH (21:13)
[2019-10-01] MEDS: ATORVASTATIN CA 40 MG TABLET (FP) PO SCH (21:14)
[2019-10-01] MEDS: HYDROCORTISONE 2.5% TOPICAL CREAM 30 GM TUBE PR SCH (21:14)
[2019-10-01] MEDS: MIRTAZAPINE 30 MG TABLET (FP) PO SCH (21:14)
[2019-10-01] MEDS: INSULIN (LEVEMIR) 100 UNITS/ML UNITS SQ SCH (21:15)
[2019-10-01] MEDS: MELATONIN 5 MG TABLETS PO PRN (21:17)
[2019-10-02] MEDS: NYSTATIN 500,000 UNITS/5 ML SUSPENSION PO SCH ×5 (06:04→23:13)
[2019-10-02] MEDS: GABAPENTIN 400 MG CAPSULE (FP) PO SCH ×3 (06:04→21:27)
[2019-10-02] MEDS: INSULIN SLIDING SCALE (NOVOLOG) 1 VIAL SQ SCH ×3 (07:04→16:39)
[2019-10-02] MEDS ORDERED: INSULIN (NOVOLOG) ASPART 100 UNITS/ML 10ML VIAL ONE ×3 (07:04→16:38)
[2019-10-02] MEDS: metFORMIN HCL 500 MG TABLET (FP) PO SCH ×2 (07:04→16:37)
[2019-10-02] MEDS: sitaGLIPtin PHOSPHATE 50 MG TABLET PO SCH ×2 (07:04→16:37)
[2019-10-02] MEDS: ARIPiprazole 5 MG TABLET (FP) PO SCH (09:51)
[2019-10-02] MEDS: PANTOPRAZOLE 40 MG TABLET (FP) PO SCH (09:51)
[2019-10-02] MEDS: ASPIRIN COATED 81 MG TABLET.EC PO SCH (09:51)
[2019-10-02] MEDS: FLUoxetine HCL 20 MG CAPSULE (FP) PO SCH (09:51)
[2019-10-02] MEDS: NICOTINE 14 MG/24 HOURS TOPICAL PATCH TD SCH (09:51)
[2019-10-02] MEDS: LISINOPRIL 10 MG TABLET (FP) PO SCH (09:52)
[2019-10-02] MEDS: PRENATAL VITAMINS W/ FOLIC ACID TABLET (FP) PO SCH (09:52)
[2019-10-02] MEDS: prednisoLONE ACETATE 1% OPHTH SUSP 5 ML BOTTLE OU SCH ×2 (09:52→21:28)
[2019-10-02] MEDS: BACITRACIN/POLYMYXIN B SULFATE 15 GM TUBE TP SCH ×2 (09:52→21:28)
[2019-10-02] MEDS: INSULIN (LEVEMIR) 100 UNITS/ML UNITS SQ SCH (21:04)
[2019-10-02] MEDS: MELATONIN 5 MG TABLETS PO PRN (21:27)
[2019-10-02] MEDS: THIAMINE HCL 100 MG TABLET (FP) PO SCH (21:27)
[2019-10-02] MEDS: MIRTAZAPINE 30 MG TABLET (FP) PO SCH (21:27)
[2019-10-02] MEDS: traZODone HCL 100 MG TABLET (FP) PO SCH (21:27)
[2019-10-02] MEDS: ATORVASTATIN CA 40 MG TABLET (FP) PO SCH (21:27)
[2019-10-02] MEDS: HYDROCORTISONE 2.5% TOPICAL CREAM 30 GM TUBE PR SCH (21:28)
[2019-10-03] MEDS: sitaGLIPtin PHOSPHATE 50 MG TABLET PO SCH ×2 (06:37→16:17)
[2019-10-03] MEDS: GABAPENTIN 400 MG CAPSULE (FP) PO SCH ×3 (06:37→21:09)
[2019-10-03] MEDS: metFORMIN HCL 500 MG TABLET (FP) PO SCH ×2 (06:37→16:17)
[2019-10-03] MEDS: NYSTATIN 500,000 UNITS/5 ML SUSPENSION PO SCH ×4 (06:38→23:52)
[2019-10-03] MEDS ORDERED: INSULIN (NOVOLOG) ASPART 100 UNITS/ML 10ML VIAL ONE ×3 (06:39→21:36)
[2019-10-03] MEDS: INSULIN SLIDING SCALE (NOVOLOG) 1 VIAL SQ SCH ×3 (06:40→16:21)
[2019-10-03] MEDS: FLUoxetine HCL 20 MG CAPSULE (FP) PO SCH (09:18)
[2019-10-03] MEDS: NICOTINE 14 MG/24 HOURS TOPICAL PATCH TD SCH (09:18)
[2019-10-03] MEDS: ARIPiprazole 5 MG TABLET (FP) PO SCH (09:19)
[2019-10-03] MEDS: PRENATAL VITAMINS W/ FOLIC ACID TABLET (FP) PO SCH (09:19)
[2019-10-03] MEDS: PANTOPRAZOLE 40 MG TABLET (FP) PO SCH (09:19)
[2019-10-03] MEDS: LISINOPRIL 10 MG TABLET (FP) PO SCH (09:19)
[2019-10-03] MEDS: ASPIRIN COATED 81 MG TABLET.EC PO SCH (09:19)
[2019-10-03] MEDS: prednisoLONE ACETATE 1% OPHTH SUSP 5 ML BOTTLE OU SCH ×2 (09:20→21:09)
[2019-10-03] MEDS: BACITRACIN/POLYMYXIN B SULFATE 15 GM TUBE TP SCH ×2 (09:20→21:09)
[2019-10-03] MEDS: ATORVASTATIN CA 40 MG TABLET (FP) PO SCH (21:09)
[2019-10-03] MEDS: MIRTAZAPINE 30 MG TABLET (FP) PO SCH (21:09)
[2019-10-03] MEDS: traZODone HCL 100 MG TABLET (FP) PO SCH (21:09)
[2019-10-03] MEDS: MELATONIN 5 MG TABLETS PO PRN (21:09)
[2019-10-03] MEDS: THIAMINE HCL 100 MG TABLET (FP) PO SCH (21:09)
[2019-10-03] MEDS: HYDROCORTISONE 2.5% TOPICAL CREAM 30 GM TUBE PR SCH (21:10)
[2019-10-03] MEDS: INSULIN (LEVEMIR) 100 UNITS/ML UNITS SQ SCH (21:11)
[2019-10-03] MEDS ORDERED: INSULIN (LEVEMIR) 100 UNITS/ML UNITS SQ ONE (21:36)
[2019-10-04] MEDS: INSULIN SLIDING SCALE (NOVOLOG) 1 VIAL SQ SCH ×3 (06:18→16:20)
[2019-10-04] MEDS: metFORMIN HCL 500 MG TABLET (FP) PO SCH ×2 (06:20→16:18)
[2019-10-04] MEDS: GABAPENTIN 400 MG CAPSULE (FP) PO SCH ×3 (06:20→21:36)
[2019-10-04] MEDS: NYSTATIN 500,000 UNITS/5 ML SUSPENSION PO SCH ×4 (06:20→23:50)
[2019-10-04] MEDS: sitaGLIPtin PHOSPHATE 50 MG TABLET PO SCH ×2 (06:21→16:18)
[2019-10-04] MEDS: NICOTINE 14 MG/24 HOURS TOPICAL PATCH TD SCH (09:35)
[2019-10-04] MEDS: FLUoxetine HCL 20 MG CAPSULE (FP) PO SCH (09:35)
[2019-10-04] MEDS: ASPIRIN COATED 81 MG TABLET.EC PO SCH (09:36)
[2019-10-04] MEDS: PRENATAL VITAMINS W/ FOLIC ACID TABLET (FP) PO SCH (09:36)
[2019-10-04] MEDS: BACITRACIN/POLYMYXIN B SULFATE 15 GM TUBE TP SCH ×2 (09:36→21:38)
[2019-10-04] MEDS: ARIPiprazole 5 MG TABLET (FP) PO SCH (09:36)
[2019-10-04] MEDS: prednisoLONE ACETATE 1% OPHTH SUSP 5 ML BOTTLE OU SCH ×2 (09:36→21:38)
[2019-10-04] MEDS: LISINOPRIL 10 MG TABLET (FP) PO SCH (09:36)
[2019-10-04] MEDS: PANTOPRAZOLE 40 MG TABLET (FP) PO SCH (09:36)
[2019-10-04] MEDS ORDERED: INSULIN (NOVOLOG) ASPART 100 UNITS/ML 10ML VIAL ONE ×2 (11:33→16:19)
[2019-10-04] MEDS ORDERED: INSULIN (LEVEMIR) 100 UNITS/ML UNITS SQ ONE (16:19)
[2019-10-04] MEDS: MELATONIN 5 MG TABLETS PO PRN (21:36)
[2019-10-04] MEDS: ATORVASTATIN CA 40 MG TABLET (FP) PO SCH (21:36)
[2019-10-04] MEDS: MIRTAZAPINE 30 MG TABLET (FP) PO SCH (21:36)
[2019-10-04] MEDS: traZODone HCL 100 MG TABLET (FP) PO SCH (21:36)
[2019-10-04] MEDS: THIAMINE HCL 100 MG TABLET (FP) PO SCH (21:36)
[2019-10-04] MEDS: INSULIN (LEVEMIR) 100 UNITS/ML UNITS SQ SCH (21:38)
[2019-10-04] MEDS: HYDROCORTISONE 2.5% TOPICAL CREAM 30 GM TUBE PR SCH (21:38)
[2019-10-04] MEDS: MAG HYDROX/AL HYDROX/SIMETH 30 ML UNIT-DOSE CUP PO PRN (21:43)
[2019-10-05] MEDS: NYSTATIN 500,000 UNITS/5 ML SUSPENSION PO SCH (06:24)
[2019-10-05] MEDS: GABAPENTIN 400 MG CAPSULE (FP) PO SCH ×3 (06:24→21:05)
[2019-10-05] MEDS: INSULIN SLIDING SCALE (NOVOLOG) 1 VIAL SQ SCH ×3 (06:26→16:53)
[2019-10-05] MEDS: metFORMIN HCL 500 MG TABLET (FP) PO SCH (06:26)
[2019-10-05 07:34] VITALS: TEMP 97.5
[2019-10-05] MEDS: sitaGLIPtin PHOSPHATE 50 MG TABLET PO SCH ×2 (07:54→16:51)
[2019-10-05] MEDS: BACITRACIN/POLYMYXIN B SULFATE 15 GM TUBE TP SCH ×2 (09:37→21:07)
[2019-10-05] MEDS: ARIPiprazole 5 MG TABLET (FP) PO SCH (09:37)
[2019-10-05] MEDS: PANTOPRAZOLE 40 MG TABLET (FP) PO SCH (09:37)
[2019-10-05] MEDS: ASPIRIN COATED 81 MG TABLET.EC PO SCH (09:37)
[2019-10-05] MEDS: LISINOPRIL 10 MG TABLET (FP) PO SCH (09:37)
[2019-10-05] MEDS: prednisoLONE ACETATE 1% OPHTH SUSP 5 ML BOTTLE OU SCH ×2 (09:37→21:07)
[2019-10-05] MEDS: PRENATAL VITAMINS W/ FOLIC ACID TABLET (FP) PO SCH (09:37)
[2019-10-05] MEDS: FLUoxetine HCL 20 MG CAPSULE (FP) PO SCH (09:37)
[2019-10-05] MEDS: NICOTINE 14 MG/24 HOURS TOPICAL PATCH TD SCH (09:37)
--- NOTE | 2019-10-05 10:42 | PN ---
[facility] Progress Note (SOAP) Subjective: Patient c/o diarrhea; loose stool greater than 5 times a day. Diabetic. Patient is on metformin 1,000mg BID and Janumet. He was started on Nystatin for oral thrush, without good effect. When he was started on Janumet, Metformin was was discontinued but ordered here. Objective: 10/05/19 10:40 CBC, BMP 09/16/19 08:10 09/16/19 08:10 Vital Signs Period Temp Pulse Resp BP Sys/Day Pulse Ox Last 24 Hr 97.5 F 81-86 18-18 140-147/73-75 General: no apparent distress Heart: s1 s2 Lungs: clear ABD: +BS Neuro: CN 2-12 intact. Assessment: Diarrhea related to metformin dose. 10/05/19 10:41 Plan: Metformin discontinued Nystatin discontinued Diflucan started.
--- NOTE | 2019-10-05 11:28 | DS ---
[facility] Rehab Discharge Summary - [facility] Rehab Discharge Summary Admission Date: 09/15/19 Discharge Date: 10/05/19 - History Present History: Alcohol dependence, Cocaine dependence Pertinent Past History: pt here for etoh and cocaine use , reports relapse since previous admission at this facility February 2019 reports moderate use ", latest "not too long ago , I can't remember , not every day , 3-4 x / week ". Pt is poor historian , evasive . etoh : beer 22 oz x 4 /day 4 x /week , denies tremors , blackouts or seizures , latest use last Saturday . PMHX : DM 1 , r eye blind , glaucoma PSHX : denies Psych : depression , suicide attempt April 2019 , denies current SI SHX : probation add'l 24 months - Discharge Physical Exam Vital Signs: Vital Signs Temperature 97.5 F L 10/05/19 06:00 Pulse Rate 86 10/05/19 09:30 Respiratory Rate 18 10/05/19 09:30 Blood Pressure 147/75 10/05/19 09:30 O2 Sat by Pulse Oximetry (%) Pertinent Admission Physical Exam Findings: General Appearance: Medically stable for discharge HEENTM: Normocephalic, Right eye blind) Respiratory: Lungs Clear, Neck: supple,Trachea in good position Cardiology: S1, S2 Abdominal: +Bowel Sounds, Non Tender, Soft Musculoskeletal: full range of Motion, Gait Steady - Treatment Discharge Condition: Outpatient referral accepted (Medically stable for discharge.Will go to [facility] for aftercare.) Hospital Course: Patient attended groups, had 1:1 with counselor, was adherent to his medication regimen and treatment plan. He was seen by the psychiatric service. He had diarrhea related to his metformin and his medication was discontinued. No other medical issues during his stay in rehab. - Medication Discharge Medications: Ambulatory Orders Insulin Regular, Human [Humulin R -] 10 units SQ TID 06/11/14 Aripiprazole [Abilify -] 5 mg PO DAILY 09/15/19 Fluoxetine HCl [Prozac] 60 mg PO DAILY 09/15/19 Mirtazapine [Remeron -] 30 mg PO HS 09/15/19 traZODone HCL [Desyrel -] 100 mg PO HS 09/15/19 traZODone HCL [Trazodone HCl] 09/15/19 Albuterol Sulfate Inhaler - [Ventolin HFA Inhaler -] 2 puff IH Q4H PRN #1 inhaler 10/05/19 Aspirin [Ecotrin] 81 mg PO DAILY #30 tablet. 10/05/19 Atorvastatin Ca [Lipitor] 80 mg PO HS #30 tablet 10/05/19 Gabapentin [Neurontin -] 600 mg PO TID #30 capsule 10/05/19 Insulin Glargine,Hum.rec.anlog [Basaglar Kwikpen U-100] 50 unit SQ HS #7 insuln.pen 10/05/19 Insulin Lispro [Admelog Solostar] 8 unit SQ TID #7 insuln.pen 10/05/19 Lisinopril 10 mg PO DAILY #30 tablet 10/05/19 Prednisolone 1% Ophthalmic [Pred Forte 1% -] 5 ml OP ASDIR #1 bottle 10/05/19 Sitagliptin Phos/Metformin HCl [Janumet 50-1,000 mg Tablet] 1 each PO DAILY #30 tablet 10/05/19 - Medication-Assisted Treatment (MAT) Medication-Assisted Treatment (MAT): No - Discharge Instructions Diet, activity, other medical instructions: Diet: as tolerated Activity: as tolerated Other medical instructions: please follow up with aftercare referral and PCP. - Diagnosis (1) Alcohol dependence Current Visit: Yes Status: Chronic (2) Cocaine dependence Current Visit: Yes Status: Chronic - Follow-up Referral Minutes to complete discharge: 20 - AMA Did Patient Leave Against Medical Advice: No Additional Comments: Home medications were transmitted to his pharmacy.
--- NOTE | 2019-10-05 11:38 | PN ---
[facility] Progress Note Note: Patient is scheduled for discharge tomorrow. Scripts for 30 days supply of medications(Prozac 60 mg/day, Abilify 5 mg/day, Remeron 30 mg/hs, Trazadone 100 mg/hs) will be electronically transmitted to [facility] at [address] [place] [address]
[2019-10-05] MEDS ORDERED: INSULIN (NOVOLOG) ASPART 100 UNITS/ML 10ML VIAL ONE ×3 (12:08→16:54)
[2019-10-05] MEDS ORDERED: PT OWN MED DRAWER 7, Y5N ONE (16:51)
[2019-10-05] MEDS: ATORVASTATIN CA 40 MG TABLET (FP) PO SCH (21:05)
[2019-10-05] MEDS: MIRTAZAPINE 30 MG TABLET (FP) PO SCH (21:05)
[2019-10-05] MEDS: THIAMINE HCL 100 MG TABLET (FP) PO SCH (21:05)
[2019-10-05] MEDS: INSULIN (LEVEMIR) 100 UNITS/ML UNITS SQ SCH (21:06)
[2019-10-05] MEDS: traZODone HCL 100 MG TABLET (FP) PO SCH (21:07)
[2019-10-05] MEDS: HYDROCORTISONE 2.5% TOPICAL CREAM 30 GM TUBE PR SCH (21:07)
[2019-10-05] MEDS: MELATONIN 5 MG TABLETS PO PRN (21:09)
[2019-10-06] MEDS: GABAPENTIN 400 MG CAPSULE (FP) PO SCH (06:16)
[2019-10-06] MEDS: INSULIN SLIDING SCALE (NOVOLOG) 1 VIAL SQ SCH (06:20)
[2019-10-06] MEDS: sitaGLIPtin PHOSPHATE 50 MG TABLET PO SCH (06:20)
[2019-10-06] MEDS ORDERED: INSULIN (NOVOLOG) ASPART 100 UNITS/ML 10ML VIAL ONE (06:37)
[2019-10-06 09:25] VITALS: BP 138/75; PULSE 86
[2019-10-06] MEDS: PRENATAL VITAMINS W/ FOLIC ACID TABLET (FP) PO SCH (09:30)
[2019-10-06] MEDS: PANTOPRAZOLE 40 MG TABLET (FP) PO SCH (09:30)
[2019-10-06] MEDS: ARIPiprazole 5 MG TABLET (FP) PO SCH (09:30)
[2019-10-06] MEDS: ASPIRIN COATED 81 MG TABLET.EC PO SCH (09:30)
[2019-10-06] MEDS: LISINOPRIL 10 MG TABLET (FP) PO SCH (09:31)
[2019-10-06] MEDS: FLUoxetine HCL 20 MG CAPSULE (FP) PO SCH (09:31)
[2019-10-06] MEDS: BACITRACIN/POLYMYXIN B SULFATE 15 GM TUBE TP SCH (09:35)
[2019-10-06] MEDS: NICOTINE 14 MG/24 HOURS TOPICAL PATCH TD SCH (09:35)
[2019-10-06] MEDS ORDERED: PT OWN MED DRAWER 7, Y5N ONE (09:35)
[2019-10-06] MEDS: prednisoLONE ACETATE 1% OPHTH SUSP 5 ML BOTTLE OU SCH (09:56)
[2019-10-06] MEDS ORDERED: FLUCONAZOLE 100 MG TABLET (UD) PO SCH (10:00)
== END 2019-10-06 09:50 | disposition home or self-care (01) | DRG 772 ==
LOC: YASAS 13:40 → Y3W 19:06
PROVIDERS: ADMIT Neuromusculoskeletal Medicine & OMM; ATTEND Neuromusculoskeletal Medicine & OMM
PROC: HZ42ZZZ Group Counseling for Substance Abuse Treatment, Cognitive-Behavioral (ICD-10-PCS; principal; 2019-09-15)
DX: F10.20 Alcohol dependence, uncomplicated (principal); F14.20 Cocaine dependence, uncomplicated; F17.210 Nicotine dependence, cigarettes, uncomplicated; F19.24 Other psychoactive substance dependence with psychoactive substance-induced mood disorder; F19.282 Other psychoactive substance dependence with psychoactive substance-induced sleep disorder; F31.9 Bipolar disorder, unspecified; I10 Essential (primary) hypertension; E11.40 Type 2 diabetes mellitus with diabetic neuropathy, unspecified; E11.65 Type 2 diabetes mellitus with hyperglycemia; H40.9 Unspecified glaucoma; H54.40 Blindness, one eye, unspecified eye; K21.9 Gastro-esophageal reflux disease without esophagitis; B37.0 Candidal stomatitis; J45.909 Unspecified asthma, uncomplicated; E78.5 Hyperlipidemia, unspecified; Z79.82 Long term (current) use of aspirin; Z79.84 Long term (current) use of oral hypoglycemic drugs; Z79.4 Long term (current) use of insulin; Z88.8 Allergy status to other drugs, medicaments and biological substances; Z91.013 Allergy to seafood
CPT/HCPCS: 36415; 80053; 81003; 82962; 85027; 86593; 87389

== ENCOUNTER 2021-12-22 09:56 | Inpatient (IN) | payer OTHER ==
[2021-12-22] MEDS ORDERED: BISMUTH SUBSALICYLATE 524 MG/30 ML PO PRN (10:53)
[2021-12-22] MEDS ORDERED: NICOTINE 10 MG CARTRIDGE (INHALER) IH PRN (10:53)
[2021-12-22] MEDS ORDERED: ACETAMINOPHEN 325 MG TABLET (FP) PO PRN ×2 (10:53)
[2021-12-22] MEDS ORDERED: diazePAM 5 MG TABLET PO PRN (10:53)
[2021-12-22] MEDS ORDERED: LOPERAMIDE HCL 2 MG CAPSULE PO PRN (10:53)
[2021-12-22] MEDS ORDERED: MAG HYDROX/AL HYDROX/SIMETH 30 ML UNIT-DOSE CUP PO PRN (10:53)
[2021-12-22] MEDS ORDERED: METHOCARBAMOL 500 MG TABLET PO PRN (10:53)
[2021-12-22] MEDS ORDERED: IBUPROFEN 400 MG TABLET (FP) PO PRN (10:53)
[2021-12-22] MEDS ORDERED: MENTHOL/PHENOL 1 EACH UD MM PRN (10:53)
[2021-12-22] MEDS ORDERED: MAGNESIUM HYDROX 2400MG/30ML ORAL SUSPENSION 30 ML CUP PO PRN (10:53)
[2021-12-22] MEDS ORDERED: ONDANSETRON *ODT* 4 MG TABLET SL PRN (10:53)
[2021-12-22] MEDS ORDERED: MAGNESIUM CITRATE 300 ML BOTTLE PO PRN (10:53)
[2021-12-22] MEDS ORDERED: ALBUTEROL SO4 HFA INHALER IH PRN (10:56)
[2021-12-22 13:39] VITALS: BMI 25.5
[2021-12-22] MEDS: amLODIPine BESYLATE 10 MG TABLET (FP) PO SCH (14:55)
[2021-12-22] MEDS ORDERED: amLODIPine BESYLATE 5 MG TABLET (FP) ONE (14:55)
[2021-12-22] MEDS: INSULIN (NOVOLOG) ASPART 100 UNITS/ML 10ML VIAL SQ SCH ×2 (15:56→17:31)
[2021-12-22] MEDS: PRENATAL VITAMINS W/ FOLIC ACID TABLET (FP) PO SCH (15:56)
[2021-12-22] MEDS: diazePAM 5 MG TABLET PO SCH ×3 (15:57→22:03)
[2021-12-22] MEDS: NICOTINE 14 MG/24 HOURS TOPICAL PATCH TD SCH (15:57)
[2021-12-22] MEDS: ASPIRIN 81 MG CHEWABLE TABLETS PO SCH (15:59)
[2021-12-22] MEDS: ATORVASTATIN CA 80 MG TABLET (FP) PO SCH ×2 (15:59→22:03)
[2021-12-22] MEDS: hydrOXYzine PAMOATE 25 MG CAPSULE (FP) PO SCH ×3 (15:59→22:03)
[2021-12-22 16:27] LABS: ALBUMIN 2.9 g/dl (3.4-5.0)
[2021-12-22 16:28] LABS: HEMATOCRIT 33.1 % (35.4-49); MCH 27.5 pg (25.7-33.7); MCHC 33.1 g/dl (32.0-35.9); MEAN CELL VOLUME 82.9 fl (80-96); MEAN PLT VOLUME 10.2 fl (7.5-11.1); PLATELET COUNT 207 10^3/uL (134-434); RBC 3.99 M/mm3 (4.00-5.60); WHITE BLOOD COUNT 6.3 K/mm3 (4.0-10.0)
[2021-12-22 16:30] LABS: CREATININE 2.1 mg/dL (0.55-1.3)
[2021-12-22 16:32] LABS: BILIRUBIN,TOTAL 0.4 mg/dL (0.2-1); TOT PROT 6.1 g/dl (6.4-8.2)
[2021-12-22] MEDS: INSULIN SLIDING SCALE (NOVOLOG) 1 VIAL SQ SCH (17:31)
[2021-12-22] MEDS ORDERED: NICOTINE POLACRILEX 2 MG GUM BUC PRN (18:08)
[2021-12-22] MEDS ORDERED: PATIENT'S OWN MEDICATION (NON-FORMULARY) (Insulin Glargine,Hum.Rec.Anlog [Basaglar Kwikpen SQ SCH (22:00)
[2021-12-22] MEDS: MELATONIN 5 MG TABLETS PO SCH (22:03)
[2021-12-22] MEDS: THIAMINE HCL 100 MG TABLET (FP) PO SCH (22:03)
[2021-12-22] MEDS: INSULIN (LEVEMIR) 100 UNITS/ML UNITS SQ SCH (22:05)
[2021-12-23] MEDS: hydrOXYzine PAMOATE 25 MG CAPSULE (FP) PO SCH ×5 (05:55→22:25)
[2021-12-23] MEDS: diazePAM 5 MG TABLET PO SCH ×4 (05:56→22:25)
[2021-12-23] MEDS: metFORMIN HCL 500 MG TABLET (FP) PO SCH (06:04)
[2021-12-23] MEDS ORDERED: sitaGLIPtin PHOSPHATE 50 MG TABLET PO SCH (07:00)
[2021-12-23] MEDS: INSULIN (NOVOLOG) ASPART 100 UNITS/ML 10ML VIAL SQ SCH ×3 (07:50→16:48)
[2021-12-23] MEDS: NON-FORMULARY MED PO SCH (07:50)
[2021-12-23] MEDS: INSULIN SLIDING SCALE (NOVOLOG) 1 VIAL SQ SCH ×3 (07:51→16:49)
[2021-12-23] MEDS: PRENATAL VITAMINS W/ FOLIC ACID TABLET (FP) PO SCH (10:22)
[2021-12-23] MEDS: LISINOPRIL 10 MG TABLET PO SCH (10:22)
[2021-12-23] MEDS: PANTOPRAZOLE 40 MG TABLET PO SCH (10:23)
[2021-12-23] MEDS: ASPIRIN COATED 81 MG TABLET.EC PO SCH (10:23)
[2021-12-23] MEDS: ASPIRIN 81 MG CHEWABLE TABLETS PO SCH (10:23)
[2021-12-23] MEDS: amLODIPine BESYLATE 10 MG TABLET (FP) PO SCH (10:24)
[2021-12-23] MEDS: NICOTINE 14 MG/24 HOURS TOPICAL PATCH TD SCH (10:24)
[2021-12-23] MEDS: ATORVASTATIN CA 80 MG TABLET (FP) PO SCH ×2 (10:25→22:25)
[2021-12-23] MEDS ORDERED: INSULIN SLIDING SCALE (NOVOLOG) 1 VIAL SQ ONE (12:09)
[2021-12-23] MEDS ORDERED: INSULIN (LEVEMIR) 100 UNITS/ML UNITS SQ ONE (21:41)
[2021-12-23] MEDS ORDERED: INSULIN (LEVEMIR) 100 UNITS/ML UNITS SQ SCH ×2 (22:00→22:40)
[2021-12-23] MEDS: MELATONIN 5 MG TABLETS PO SCH (22:25)
[2021-12-23] MEDS: THIAMINE HCL 100 MG TABLET (FP) PO SCH (22:25)
[2021-12-23] MEDS: INSULIN (LEVEMIR) 100 UNITS/ML UNITS SQ SCH ×2 (22:59→23:00)
[2021-12-24] MEDS: diazePAM 5 MG TABLET PO SCH ×3 (05:29→21:34)
[2021-12-24] MEDS: hydrOXYzine PAMOATE 25 MG CAPSULE (FP) PO SCH ×5 (05:30→21:35)
[2021-12-24] MEDS: metFORMIN HCL 500 MG TABLET (FP) PO SCH (06:41)
[2021-12-24] MEDS: INSULIN (NOVOLOG) ASPART 100 UNITS/ML 10ML VIAL SQ SCH ×3 (06:42→17:09)
[2021-12-24] MEDS: NON-FORMULARY MED PO SCH (06:43)
[2021-12-24] MEDS: INSULIN SLIDING SCALE (NOVOLOG) 1 VIAL SQ SCH ×3 (06:45→17:09)
[2021-12-24] MEDS: LISINOPRIL 10 MG TABLET PO SCH (10:12)
[2021-12-24] MEDS: PRENATAL VITAMINS W/ FOLIC ACID TABLET (FP) PO SCH (10:12)
[2021-12-24] MEDS: PANTOPRAZOLE 40 MG TABLET PO SCH (10:12)
[2021-12-24] MEDS: ATORVASTATIN CA 80 MG TABLET (FP) PO SCH ×2 (10:12→21:35)
[2021-12-24] MEDS: ASPIRIN 81 MG CHEWABLE TABLETS PO SCH (10:12)
[2021-12-24] MEDS: amLODIPine BESYLATE 10 MG TABLET (FP) PO SCH (10:12)
[2021-12-24] MEDS: NICOTINE 14 MG/24 HOURS TOPICAL PATCH TD SCH (10:14)
[2021-12-24] MEDS: ASPIRIN COATED 81 MG TABLET.EC PO SCH (10:15)
[2021-12-24] MEDS ORDERED: INSULIN SLIDING SCALE (NOVOLOG) 1 VIAL SQ ONE ×2 (12:07→13:08)
[2021-12-24] MEDS: THIAMINE HCL 100 MG TABLET (FP) PO SCH (21:35)
[2021-12-24] MEDS: MELATONIN 5 MG TABLETS PO SCH (21:35)
[2021-12-24] MEDS: INSULIN (LEVEMIR) 100 UNITS/ML UNITS SQ SCH (21:40)
[2021-12-25 00:06] LABS: SARS-CoV-2 NAA Not Detected (Not Detected)
[2021-12-25] MEDS: hydrOXYzine PAMOATE 25 MG CAPSULE (FP) PO SCH ×5 (05:24→21:37)
[2021-12-25] MEDS: diazePAM 5 MG TABLET PO SCH ×2 (05:24→17:39)
[2021-12-25] MEDS: NON-FORMULARY MED PO SCH (06:23)
[2021-12-25] MEDS: INSULIN (NOVOLOG) ASPART 100 UNITS/ML 10ML VIAL SQ SCH ×3 (06:23→17:40)
[2021-12-25] MEDS: INSULIN SLIDING SCALE (NOVOLOG) 1 VIAL SQ SCH ×3 (06:23→17:30)
[2021-12-25] MEDS: metFORMIN HCL 500 MG TABLET (FP) PO SCH (06:23)
[2021-12-25] MEDS: PRENATAL VITAMINS W/ FOLIC ACID TABLET (FP) PO SCH (10:12)
[2021-12-25] MEDS: PANTOPRAZOLE 40 MG TABLET PO SCH (10:13)
[2021-12-25] MEDS: ATORVASTATIN CA 80 MG TABLET (FP) PO SCH ×2 (10:13→21:37)
[2021-12-25] MEDS: ASPIRIN 81 MG CHEWABLE TABLETS PO SCH (10:13)
[2021-12-25] MEDS: LISINOPRIL 10 MG TABLET PO SCH (10:13)
[2021-12-25] MEDS: ASPIRIN COATED 81 MG TABLET.EC PO SCH (10:13)
[2021-12-25] MEDS: NICOTINE 14 MG/24 HOURS TOPICAL PATCH TD SCH (10:14)
[2021-12-25] MEDS: amLODIPine BESYLATE 10 MG TABLET (FP) PO SCH (10:15)
[2021-12-25] MEDS ORDERED: BENZOCAINE 20 % GEL TUBE MM PRN (14:27)
[2021-12-25] MEDS ORDERED: INSULIN SLIDING SCALE (NOVOLOG) 1 VIAL SQ ONE (17:18)
[2021-12-25] MEDS: MELATONIN 5 MG TABLETS PO SCH (21:37)
[2021-12-25] MEDS: THIAMINE HCL 100 MG TABLET (FP) PO SCH (21:37)
[2021-12-25] MEDS: INSULIN (LEVEMIR) 100 UNITS/ML UNITS SQ SCH (21:38)
[2021-12-26] MEDS: hydrOXYzine PAMOATE 25 MG CAPSULE (FP) PO SCH ×2 (05:53→11:06)
[2021-12-26] MEDS ORDERED: diazePAM 5 MG TABLET PO ONE (06:00)
[2021-12-26] MEDS: metFORMIN HCL 500 MG TABLET (FP) PO SCH (08:09)
[2021-12-26] MEDS: INSULIN (NOVOLOG) ASPART 100 UNITS/ML 10ML VIAL SQ SCH ×2 (08:10→12:00)
[2021-12-26] MEDS: NON-FORMULARY MED PO SCH (08:11)
[2021-12-26] MEDS: INSULIN SLIDING SCALE (NOVOLOG) 1 VIAL SQ SCH ×2 (08:15→11:56)
[2021-12-26 09:37] VITALS: BP 111/69; PULSE 67; TEMP 97.8
[2021-12-26 09:53] LABS: BLOOD UREA NITROGEN 24.3 mg/dL (7-18)
[2021-12-26] MEDS: ASPIRIN 81 MG CHEWABLE TABLETS PO SCH (10:12)
[2021-12-26] MEDS: NICOTINE 14 MG/24 HOURS TOPICAL PATCH TD SCH (10:15)
[2021-12-26] MEDS: ASPIRIN COATED 81 MG TABLET.EC PO SCH (11:05)
[2021-12-26] MEDS: PRENATAL VITAMINS W/ FOLIC ACID TABLET (FP) PO SCH (11:05)
[2021-12-26] MEDS: amLODIPine BESYLATE 10 MG TABLET (FP) PO SCH (11:05)
[2021-12-26] MEDS: ATORVASTATIN CA 80 MG TABLET (FP) PO SCH (11:05)
[2021-12-26] MEDS: LISINOPRIL 10 MG TABLET PO SCH (11:06)
[2021-12-26] MEDS: PANTOPRAZOLE 40 MG TABLET PO SCH (11:06)
== END 2021-12-26 13:15 | disposition other institution (70) | DRG 774 ==
LOC: YASAS 09:56 → Y3N 13:44
PROVIDERS: ADMIT Allergy & Immunology; ATTEND Allergy & Immunology
PROC: HZ2ZZZZ Detoxification Services for Substance Abuse Treatment (ICD-10-PCS; principal; 2021-12-22)
DX: F10.230 Alcohol dependence with withdrawal, uncomplicated (principal); F14.20 Cocaine dependence, uncomplicated; F17.210 Nicotine dependence, cigarettes, uncomplicated; F31.9 Bipolar disorder, unspecified; G62.9 Polyneuropathy, unspecified; E78.5 Hyperlipidemia, unspecified; E11.65 Type 2 diabetes mellitus with hyperglycemia; Z79.4 Long term (current) use of insulin; I10 Essential (primary) hypertension; J45.909 Unspecified asthma, uncomplicated; K21.9 Gastro-esophageal reflux disease without esophagitis; Z99.89 Dependence on other enabling machines and devices; Z88.8 Allergy status to other drugs, medicaments and biological substances; Z91.018 Allergy to other foods
CPT/HCPCS: 36415; 80053; 82540; 82565; 82962; 84520; 85027; 86780; 93971-TC; C9803-CS; U0003; U0005